=== PATIENT | male | born 1945 | race Caucasian/White ===

== ENCOUNTER 2019-09-10 00:21 | Day surgery (SDC) | payer OTHER, SELFPAY ==
[2019-09-07 14:12] VITALS: BMI 31.6
[2019-09-10] VITALS (10 sets, daily range): BP systolic 123–164; BP diastolic 60–86; PULSE 64–88; RESP 14–18; TEMP 36.2–36.6; O2SAT 93–99; BMI 31.1
--- NOTE | 2019-09-10 07:18 | WPDHPUPDATE1 ---
History and Physical Update Update Date/Time: 09/10/19 07:18 History and Physical has been reviewed, including an updated exam of the patient. There are NO changes in the patient's condition. Risks, benefits, and alternatives have been discussed and questions answered. Patient agrees to proceed with procedure.
--- NOTE | 2019-09-10 11:11 | ECG_ITS ---
Measurements Intervals [place] Rate: 82 P: 46 WV: 152 QRS: -10 QRSD: 139 T: -6 QT: 384 QTc: 449 Interpretive Statements SINUS RHYTHM RIGHT BUNDLE BRANCH BLOCK BASELINE ARTIFACT- II, III, AVF ABNORMAL ECG Electronically Signed On 09-10-2019 11:43:04 CDT by Eran Zaragoza D.O.
--- NOTE | 2019-09-10 11:15 | WPDANESEPPF ---
Anes - Initial Pre Proc Eval Procedure: Operation Date: 09/10/19 13:00 Proposed Procedures p Trans Urethral Resection Bladder Tumor with Mitomycin C Instillation - Uziel Lopez MD Date/Time: 09/10/19 11:15 Surgeon: Uziel Lopez MD Pre Op Diagnosis: bladder tumor, bladder CA Patient Data Age: 74 Gender: M Height: 5 ft 10 in Weight: 100 kg Allergies Allergy/AdvReac Type Severity Reaction Status Date / Time No Known Allergies Allergy Unverified 09/07/19 13:45 Home Medications Medication Instructions Recorded Confirmed Type atorvastatin 20 mg tablet 20 mg PO QPM #90 tablet 04/21/19 09/07/19 Rx lisinopril 20 mg tablet 20 mg PO DAILY #90 tablet 06/17/19 09/07/19 Rx docusate sodium [Colace] 100 mg PO BID 09/07/19 09/07/19 History finasteride 5 mg PO DAILY 09/07/19 09/07/19 History tamsulosin 0.4 mg PO BID 09/07/19 09/07/19 History Patient hx anesthesia problems: none Family hx anesthesia problems: none [facility] Past Medical History Medical History (Updated 09/10/19 @ 11:17 by Yoshi Mir MD) HTN (hypertension) Hyperlipidemia CRISTY (obstructive sleep apnea) Family History Family History Mother Cerebrovascular accident Father Family history of primary malignant neoplasm of liver Family history of liver disease Other Family history of hypercholesterolemia Hypertension Social History Social History Smoking status: Former smoker Smoking end date: 05/27/85 Alcohol intake: never Anes - Eval Final PreProcedure Day of Procedure 09/10/19 11:15 Patient weight: obese Heart: regular rate and rhythm Lungs: clear to auscultation Airway: Mallampati scale class III and other (upper plate) Last oral intake: >/= 8 hours ASA classification: III Emergent: no Anesthetic plan: proceed Anesthesia type and monitoring: general LMA and standard monitoring Informed Consent: The patient's anesthetic plan and its attendant risks and benefits were discussed with the patient/family/POA. Questions were solicited and answers provided to the satisfaction of the patient/family/POA.
[2019-09-10 11:49] LABS: Hematocrit 49.9 % (42.0-52.0); Hemoglobin 16.1 g/dL (14.0-18.0)
[2019-09-10 11:59] LABS: Prothrombin Time 12.4 Seconds (11.1-14.7)
[2019-09-10 12:00] LABS: Partial Thromboplastin Time 21.4 SECONDS (22.3-36.8)
[2019-09-10] MEDS: LACTATED RINGERS 1,000 ML 30 ML IV CONT ×2 (12:05→14:32)
[2019-09-10] MEDS: ceFAZolin 2 GM/D5W 50 ML 2 GM/50 ML BAG IVPB (12:40)
[2019-09-10] MEDS: LIDOCAINE HCL 2% GEL UROJET 10 ML PKG MUCOUS MEM (12:47)
--- NOTE | 2019-09-10 13:32 | P.OP_ITS ---
Procedure Note - Detailed Date of procedure: 09/10/19 Pre-op diagnosis: bladder tumor, bladder CA Post-op diagnosis: same Procedure performed: TURBT (large, 5-6cm) Description of procedure: The patient was brought to the operative suite where he is prepped and draped in a routine sterile fashion while in the dorsal lithotomy position. This is done after the uneventful administration of systemic sedation. 2% Xylocaine jelly is introduced intraurethrally and allowed to stand for an appropriate period of time. A 24F resectoscope sheath was placed in the bladder and the bladder is circumferentially inspected carefully. He has a an area of recurrent urothelial ca. involving the ledt posterior- lateral bladder, extending into the dome and to the bladder neck. This area is resected in its entirety with an attempt made to include detrusor muscle for pathological evaluation of invasion. The base and periphery of this resected side is cauterized with a loop electrode. The bladder is emptied and the resectoscope was removed. The patient is taken to the recovery room having tolerated this procedure well. Anesthesia: MAC Surgeon: Uziel Lopez MD Estimated blood loss (mL): 10 Drains: Yes (18F Santiago) Packing: No Pathology: yes Complications: No immediate complications Condition: stable Disposition: PACU
--- NOTE | 2019-09-10 13:36 | P.OP_ITS ---
Procedure Note - Detailed Date of procedure: 09/10/19 Pre-op diagnosis: bladder tumor, bladder CA Post-op diagnosis: same Procedure performed: Mitomycin bladder instillation Description of procedure: With the patient in the supine position, a 16F Santiago catheter is placed using sterile technique. Using a protective facemask, gown and double layer of gloves Mitomycin 40mg in 100cc saline is administered through the catheter/into the bladder. The catheter is then plugged. Patient was instructed to lie supine x20min, then to roll both the left and right x20 min. each. Total dwell time will be 60 min., after which the bladder will be dr samir and catheter removed. Anesthesia: none Surgeon: Uziel Lopez MD Estimated blood loss (mL): 0 Drains: Yes (18F Santiago) Packing: No Pathology: none sent Complications: No immediate complications Condition: stable Disposition: PACU
== END 2019-09-10 16:14 | disposition home or self-care (01) ==
PROVIDERS: Anesthesiology; PCP Family Medicine; Visit Provider Urology
PROC: 0TBB8ZZ Excision of Bladder, Via Natural or Artificial Opening Endoscopic (ICD-10-PCS; CPT 52240; principal; 2019-09-10 13:00)
DX: C67.8 Malignant neoplasm of overlapping sites of bladder (principal); I10 Essential (primary) hypertension; E78.5 Hyperlipidemia, unspecified; G47.33 Obstructive sleep apnea (adult) (pediatric); I45.10 Unspecified right bundle-branch block; Z87.891 Personal history of nicotine dependence; E66.9 Obesity, unspecified; Z68.31 Body mass index [BMI] 31.0-31.9, adult
CPT/HCPCS: 52240; 51720; 36415; 85014; 85018; 85610; 85730; 88305; 88307; 93005; A9270; J0330; J0690; J1100; J2250; J2405; J3010; J7120; J9280

== ENCOUNTER 2019-11-12 07:04 | Outpatient (RCR) | payer OTHER, SELFPAY ==
[2019-10-08 07:20] VITALS: BP 123/72; PULSE 91; RESP 16; TEMP 37.1; O2SAT 98
[2019-10-08 07:50] VITALS: BP 120/70; PULSE 90; RESP 18
[2019-10-08] MEDS: SODIUM CHLORIDE 0.9% IV 23.7 ML, GEMCITABINE HCL 1,000 MG BLADDER ×2 (08:00)
[2019-10-08 08:20] VITALS: BP 126/74; PULSE 92; RESP 18
--- NOTE | 2019-10-08 08:30 | PM.PROC ---
Procedure Note - Detailed Date of procedure: 10/08/19 Pre-op diagnosis: Bladder Ca Post-op diagnosis: same Procedure performed: Intravesicle gemcitabine instillation. Description of procedure: With the patient in the supine position, a 16F Santiago catheter is placed using sterile technique. Using a protective facemask, gown and double layer of gloves Gemcitabine 2gm in 100cc saline is administered through the catheter/into the bladder. The catheter is then plugged. Patient was instructed to lie supine x20min, then to roll both the left and right x20 min. each. Total dwell time will be 60 min., after which the bladder will be drained and catheter removed. Surgeon: Uziel Lopez MD Estimated blood loss (mL): 0 Drains: No Packing: No Pathology: yes Complications: No immediate complications Condition: stable Disposition: PACU
[2019-10-08 08:50] VITALS: BP 156/87; PULSE 92; RESP 18
--- NOTE | 2019-10-08 09:30 | SUR.PHASEII ---
0905 PADRON CATHETER DRAINED & REMOVED.
[2019-10-15 11:50] VITALS: BP 138/81; PULSE 81
[2019-10-15 12:20] VITALS: BP 154/84; PULSE 83; RESP 14
--- NOTE | 2019-10-15 12:21 | SUR.PHASEII ---
1210: Dr. Jensen's office notfied that patient is here and ready for bladder instillation.
[2019-10-15 12:55] VITALS: BP 150/80; PULSE 88; RESP 14
[2019-10-15] MEDS: SODIUM CHLORIDE 0.9% IV 23.7 ML, GEMCITABINE HCL 1,000 MG BLADDER ×2 (12:55→13:43)
[2019-10-15 13:30] VITALS: BP 148/80; PULSE 78; RESP 14
--- NOTE | 2019-10-15 14:38 | PM.PROC ---
Procedure Note - Detailed Date of procedure: 10/15/19 Pre-op diagnosis: Bladder Ca Surgeon: Berenice Ramos, JOSE LUIS Patient was verified by name and date of . Then a 16fr straight catheter was placed without difficulty,200ml clear yellow uirne noted on return. He was prepped with Betadine at the urethral meatus prior to catheter insertion. He then underwent the instillation of Gemcitabine HCL 1,000mg/26.3 in NS 0.9% IV 100ml, beginning at 12:50. Patient tolerated the instillation well.
--- NOTE | 2019-10-15 15:47 | SUR.PHASEII ---
1255 rose employee service officer here and placed betancourt and instilled chemotherapy with pt turning q20min.
--- NOTE | 2019-10-15 15:53 | SUR.PHASEII ---
1400 pt to back and drained urine and removed betancourt without difficulty.
--- NOTE | 2019-10-22 06:55 | WPDHPUPDATE1 ---
History and Physical Update Update Date/Time: 10/22/19 06:55 History and Physical has been reviewed, including an updated exam of the patient. There are NO changes in the patient's condition. Risks, benefits, and alternatives have been discussed and questions answered. Patient agrees to proceed with procedure.
[2019-10-22 07:30] VITALS: BP 117/72; PULSE 90; RESP 18; TEMP 36.4; O2SAT 100
[2019-10-22 08:00] VITALS: BP 117/70; PULSE 83; RESP 18; O2SAT 99
[2019-10-22] MEDS: SODIUM CHLORIDE 0.9% IV 23.7 ML, GEMCITABINE HCL 1,000 MG BLADDER ×2 (08:18→08:20)
--- NOTE | 2019-10-22 08:25 | PM.PROC ---
Procedure Note - Detailed Date of procedure: 10/22/19 Pre-op diagnosis: Bladder Ca Post-op diagnosis: same Procedure performed: Simple catheterization and instillation of bladder chemotherapy. Description of procedure: With the patient in the supine position, a 16F Santiago catheter is placed using sterile technique. Using a protective facemask, gown and double layer of gloves Gemcitabine 2gm in 100cc saline is administered through the catheter/into the bladder. The catheter is then plugged. Patient was instructed to lie supine x20min, then to roll both the left and right x20 min. each. Total dwell time will be 60 min., after which the bladder will be drained and catheter removed. Anesthesia: none Surgeon: Uziel Lopez MD Estimated blood loss (mL): 0 Drains: No Packing: No Pathology: none sent Complications: No immediate complications Condition: stable Disposition: PACU
[2019-10-22 08:30] VITALS: BP 119/68; PULSE 93; RESP 18; O2SAT 96
[2019-10-22 09:00] VITALS: BP 119/70; PULSE 92; RESP 18; O2SAT 96
--- NOTE | 2019-10-22 10:06 | SUR.PHASEII ---
0920 PADRON CATHETER DRAINED & THEN DISCONTINUED.
--- NOTE | 2019-10-27 07:33 | PM.HPGS ---
History of Present Illness History of Present Illness Consent: Risks, benefits, and alternatives have been discussed and questions answered. Patient agrees to proceed with procedure. Chief complaint: Bladder Ca Narrative: Mark Domingo is a 74 year old male with recurrent bladder cancer involved in course of intrasicle Gemcitobine. Review of Systems Cardiovascular: Cardiovascular: Denies chest pain, Denies lightheadedness, Denies palpitations and Denies dyspnea Respiratory: Respiratory: Denies dyspnea Gastrointestinal: Gastrointestinal: Denies diarrhea, Denies nausea and Denies vomiting Genitourinary: Genitourinary: Denies hematuria and Denies dysuria Endocrine: Endocrine: Denies palpitations [facility] Past Medical History Medical History Bladder cancer CLL (chronic lymphocytic leukemia) HTN (hypertension) Hyperlipidemia CRISTY (obstructive sleep apnea) Family History Family History Mother Cerebrovascular accident Father Family history of primary malignant neoplasm of liver Family history of liver disease Other Family history of hypercholesterolemia Hypertension Social History Social History Smoking packs per day: 1 Smoking cigarettes per day: 20.0 Years smoked: 25 Smoking pack-years: 25.00 Smoking status: Former smoker Tobacco type: cigarettes Second hand tobacco smoke exposure: No Smoking end date: 05/27/85 Alcohol intake: never Substance use: never Substance use type: does not use Gender identity (if verbalized by the patient): Male Meds Home Medications and Allergies Home Medications Medication Instructions Recorded Confirmed Type docusate sodium [Colace] 100 mg PO BID 09/07/19 09/10/19 History finasteride 5 mg PO DAILY 09/07/19 09/10/19 History tamsulosin 0.4 mg PO BID 09/07/19 09/10/19 History cephalexin 500 mg PO Q8H #9 cap 09/10/19 Rx lisinopril 20 mg tablet 20 mg PO DAILY #90 tablet 09/14/19 Rx methylprednisolone 4 mg tablets in See Rx Instructions PO PER PKG DIR 10/02/19 10/02/19 Rx a dose pack #21 each atorvastatin 20 mg tablet 20 mg PO QPM #90 tablet 10/15/19 Rx Allergies Allergy/AdvReac Type Severity Reaction Status Date / Time cephalexin [From Keflex] Allergy Intermediate rash Verified 10/02/19 15:26 Exam Const: General: no acute distress Resp: Effort & Inspection: normal respiratory effort GI: Inspection: non-distended GI Palp: No abdominal tenderness and No Guarding due to palpation present (GI) Auscultation: normal bowel sounds Assessment and Plan Assessment and plan (1) Bladder cancer: Code(s): C67.9 - Malignant neoplasm of bladder, unspecified Status: Acute Assessment and Plan: Intravesicle Gemcitobene instillation
--- NOTE | 2019-10-29 07:12 | WPDHPUPDATE1 ---
History and Physical Update Update Date/Time: 10/29/19 07:12 History and Physical has been reviewed, including an updated exam of the patient. There are NO changes in the patient's condition. Risks, benefits, and alternatives have been discussed and questions answered. Patient agrees to proceed with procedure.
[2019-10-29 07:30] VITALS: BP 133/71; PULSE 93; RESP 18; O2SAT 96
--- NOTE | 2019-10-29 07:31 | SUR.PHASEII ---
0725 - dr. tilley in room with patient.
[2019-10-29] MEDS: SODIUM CHLORIDE 0.9% IV 23.7 ML, GEMCITABINE HCL 1,000 MG BLADDER ×2 (07:37)
--- NOTE | 2019-10-29 07:38 | PM.PROC ---
Procedure Note - Detailed Date of procedure: 10/29/19 Pre-op diagnosis: Bladder Ca Post-op diagnosis: same Procedure performed: Intravesical instillation of Gemcitabine Description of procedure: With the patient in the supine position, a 16F Santiago catheter is placed using sterile technique. Using a protective facemask, gown and double layer of gloves Gemcitabine 2gm in 100cc saline is administered through the catheter/into the bladder. The catheter is then plugged. Patient was instructed to lie supine x20min, then to roll both the left and right x20 min. each. Total dwell time will be 60 min., after which the bladder will be drained and catheter removed. Anesthesia: none Surgeon: Uziel Lopez MD Estimated blood loss (mL): 0 Drains: Yes (16F Santiago) Packing: No Pathology: yes Complications: No immediate complications Condition: stable Disposition: PACU
[2019-10-29 08:45] VITALS: BP 120/70; PULSE 90; RESP 18; O2SAT 96
--- NOTE | 2019-10-29 08:45 | SUR.PHASEII ---
0840 - betancourt catheter drained and removed. pt debbie well. skin care provided.
--- NOTE | 2019-11-05 06:53 | WPDHPUPDATE1 ---
History and Physical Update Update Date/Time: 11/05/19 06:53 History and Physical has been reviewed, including an updated exam of the patient. There are NO changes in the patient's condition. Risks, benefits, and alternatives have been discussed and questions answered. Patient agrees to proceed with procedure.
--- NOTE | 2019-11-05 06:54 | WPDHPUPDATE1 ---
History and Physical Update Update Date/Time: 11/05/19 06:54 History and Physical has been reviewed, including an updated exam of the patient. There are NO changes in the patient's condition. Risks, benefits, and alternatives have been discussed and questions answered. Patient agrees to proceed with procedure.
[2019-11-05 07:09] VITALS: BP 134/74; PULSE 88; RESP 18; TEMP 36; O2SAT 99
--- NOTE | 2019-11-05 07:30 | PM.PROC ---
Procedure Note - Detailed Date of procedure: 11/05/19 Pre-op diagnosis: Bladder Ca Post-op diagnosis: same Procedure performed: Gemcitabine bladder instillation Description of procedure: With the patient in the supine position, a 16F Santiago catheter is placed using sterile technique. Using a protective facemask, gown and double layer of gloves Gemcitabine 2gm in 100cc saline is administered through the catheter/into the bladder. The catheter is then plugged. Patient was instructed to lie supine x20min, then to roll both the left and right x20 min. each. Total dwell time will be 60 min., after which the bladder will be drained and catheter removed. Surgeon: Uziel Lopez MD Estimated blood loss (mL): 0 Drains: No Packing: No Pathology: none sent Complications: No immediate complications Condition: stable Disposition: PACU
[2019-11-05 07:40] VITALS: BP 122/66; PULSE 84; RESP 18; O2SAT 97
[2019-11-05] MEDS: SODIUM CHLORIDE 0.9% IV 23.7 ML, GEMCITABINE HCL 1,000 MG BLADDER ×2 (07:40→07:41)
[2019-11-05 08:10] VITALS: BP 145/71; PULSE 92; RESP 18; O2SAT 98
[2019-11-05 08:40] VITALS: BP 130/75; PULSE 88; O2SAT 98
--- NOTE | 2019-11-05 09:32 | SUR.PHASEII ---
0937 pt tolerated procedure and is ok to be discharged per dr tilley
[2019-11-12 07:20] VITALS: BP 135/68; PULSE 91; RESP 17; O2SAT 98
--- NOTE | 2019-11-12 07:32 | PM.PROC ---
Procedure Note - Detailed Date of procedure: 11/12/19 Pre-op diagnosis: Bladder Ca Post-op diagnosis: same Procedure performed: Gemcitabine instillation Description of procedure: With the patient in the supine position, a 16F Santiago catheter is placed using sterile technique. Using a protective facemask, gown and double layer of gloves Gemcitabine 2gm in 100cc saline is administered through the catheter/into the bladder. The catheter is then plugged. Patient was instructed to lie supine x20min, then to roll both the left and right x20 min. each. Total dwell time will be 60 min., after which the bladder will be drained and catheter removed. Anesthesia: none Surgeon: Uziel Lopez MD Estimated blood loss (mL): 0 Drains: No Packing: No Pathology: none sent Complications: No immediate complications Condition: stable Disposition: PACU
[2019-11-12] MEDS: SODIUM CHLORIDE 0.9% IV 23.7 ML, GEMCITABINE HCL 1,000 MG BLADDER ×2 (07:50→07:54)
--- NOTE | 2019-11-12 08:12 | SUR.PHASEII ---
0750 Pharmacy delivered medication, Dr Lopez placed betancourt and administered medication. No complications and vitals are stable
--- NOTE | 2019-11-12 08:17 | SUR.PHASEII ---
1344 Pt turned from backside to right side
[2019-11-12 08:30] VITALS: BP 134/65; PULSE 90; O2SAT 98
--- NOTE | 2019-11-12 08:31 | SUR.PHASEII ---
0830 Pt turned from left side to right side
--- NOTE | 2019-11-12 09:06 | SUR.PHASEII ---
0955 Drained pt's betancourt
[2019-11-12 09:15] VITALS: BP 132/71; PULSE 98; O2SAT 98
== END 2020-01-06 23:59 | disposition home or self-care (01) ==
LOC: ANHSURGERY 07:04
PROVIDERS: Urology; PCP Family Medicine; Visit Provider Urology
PROC: 3E1K78Z Irrigation of Genitourinary Tract using Irrigating Substance, Via Natural or Artificial Opening (ICD-10-PCS; CPT 51700; principal; 2019-10-08 07:30)
DX: C67.9 Malignant neoplasm of bladder, unspecified (principal)
CPT/HCPCS: 51720; J9201

== ENCOUNTER → 2020-07-18 00:11 | Outpatient (CLI) | payer OTHER, SELFPAY ==
[2020-07-18 19:33] LABS: SARS-CoV-2 RNA PCR Negative
== END ==
PROVIDERS: PCP Family Medicine; Visit Provider Urology
DX: Z01.812 Encounter for preprocedural laboratory examination (principal); Z20.822 Contact with and (suspected) exposure to COVID-19
CPT/HCPCS: C9803; U0003; U0005

== ENCOUNTER 2020-07-21 01:51 | Day surgery (SDC) | payer OTHER, SELFPAY ==
[2020-07-14 13:35] VITALS: BMI 31.6
[2020-07-21] VITALS (10 sets, daily range): BP systolic 115–156; BP diastolic 62–87; PULSE 73–877; RESP 13–20; TEMP 36.5–36.7; O2SAT 95–100
--- NOTE | 2020-07-21 06:55 | WPDHPUPDATE1 ---
History and Physical Update Update Date/Time: 07/21/20 06:55 History and Physical has been reviewed, including an updated exam of the patient. There are NO changes in the patient's condition. Risks, benefits, and alternatives have been discussed and questions answered. Patient agrees to proceed with procedure.
[2020-07-21] MEDS: LACTATED RINGERS 1,000 ML 30 ML IV CONT (14:12)
--- NOTE | 2020-07-21 14:23 | WPDANESEPPF ---
Anes - Initial Pre Proc Eval Procedure: Operation Date: 07/21/20 15:15 Proposed Procedures p Trans Urethral Resection Bladder Tumor With Gemcitabine Instillation - Uziel Lopez MD Date/Time: 07/21/20 14:23 Surgeon: Uziel Lopez MD Pre Op Diagnosis: Bladder CA Patient Data Age: 74 Gender: M Height: 5 ft 10 in Weight: 93.4 kg Last Vital Signs Temp 97.7 F 07/21/20 13:34 Pulse 77 07/21/20 13:34 Resp 16 07/21/20 13:34 BP 142/78 H 07/21/20 13:34 Pulse Ox 100 07/21/20 13:34 Allergies Allergy/AdvReac Type Severity Reaction Status Date / Time cephalexin [From Keflex] Allergy Intermediate rash Verified 07/21/20 13:47 Home Medications Medication Instructions Recorded Confirmed Type docusate sodium [Colace] 100 mg PO BID 09/07/19 07/21/20 History tamsulosin 0.4 mg PO BID 09/07/19 07/21/20 History atorvastatin 20 mg tablet 20 mg PO QPM #90 tablet 04/04/20 07/21/20 Rx lisinopril 20 mg tablet 20 mg PO DAILY #90 tablet 04/04/20 07/21/20 Rx finasteride 5 mg tablet 5 mg PO DAILY #90 tablet 04/26/20 07/21/20 Rx Patient hx anesthesia problems: none Family hx anesthesia problems: none PMFSH Past Medical History Medical History (Updated 04/10/20 @ 14:18 by Nitza Alcocer MD) Bladder cancer CLL (chronic lymphocytic leukemia) HTN (hypertension) Hyperlipidemia Family History Family History Mother Cerebrovascular accident Father Family history of primary malignant neoplasm of liver Family history of liver disease Other Family history of hypercholesterolemia Hypertension Social History Social History (Updated 04/04/20 @ 10:24 by Marianne Doe) Social History: Smoking packs per day: 1 Smoking cigarettes per day: 20.0 Years smoked: 24 Smoking pack-years: 24.00 Smoking status: Former smoker Tobacco type: cigarettes Second hand tobacco smoke exposure: No Smoking end date: 05/27/84 Alcohol intake: never Substance use: never Substance use type: does not use Living arrangements: with family Gender identity (if verbalized by the patient): Male Spiritual care concerns: No Anes - Eval Final PreProcedure Day of Procedure 07/21/20 14:23 Patient weight: obese Heart: regular rate and rhythm Lungs: clear to auscultation Airway: Mallampati scale class III Neurological: alert and oriented Last oral intake: >/= 8 hours Emergent: no Anesthetic plan: proceed Anesthesia type and monitoring: general LMA and standard monitoring Informed Consent: The patient's anesthetic plan and its attendant risks and benefits were discussed with the patient/family/POA. Questions were solicited and answers provided to the satisfaction of the patient/family/POA.
[2020-07-21] MEDS: levoFLOXacin 500 MG/D5W 100 ML 500 MG/100 ML BAG 100 MG IVPB (14:37)
--- NOTE | 2020-07-21 15:30 | PM.PROC ---
Procedure Note - Detailed Date of procedure: 07/21/20 Pre-op diagnosis: Bladder CA Post-op diagnosis: same Procedure performed: TURBT (medium, 3cm) Description of procedure: Patient is brought to the operative suite was prepped and draped in routine sterile fashion while in dorsal lithotomy position after the uneventful induction of a general LMA anesthetic. A 24 F resectoscope was placed in his bladder. Prostatic urethra is uninvolved by apparent neoplasm. Bladder was carefully inspected and found to have a small papillary neoplasm arising in the dome and extending somewhat of the left anterior lateral bladder wall. This was resected in its entirety grossly within attempt made to include detrusor muscle for pathological evaluation of invasion. The patient periphery were cauterized both with a loop and a rollerball electrode. The chips were evacuated and the resectoscope was removed. An 18 F urethral catheter was placed to drainage. Efflux was clear at the termination of this procedure. Anesthesia: GLMA Surgeon: Uziel Lopez MD Estimated blood loss (mL): 0 Drains: Yes (18F Santiago catheter) Packing: No Pathology: yes Condition: stable Disposition: PACU
--- NOTE | 2020-07-21 15:32 | PM.PROC ---
Procedure Note - Detailed Date of procedure: 07/21/20 Pre-op diagnosis: Bladder CA Post-op diagnosis: same Procedure performed: Gemcitabine instillation Description of procedure: With the patient in the supine position, a 16F Santiago catheter is placed using sterile technique. Using a protective facemask, gown and double layer of gloves Gemcitabine 2gm in 100cc saline is administered through the catheter/into the bladder. The catheter is then plugged. Patient was instructed to lie supine x20min, then to roll both the left and right x20 min. each. Total dwell time will be 60 min., after which the bladder will be drained and catheter removed. Anesthesia: local Surgeon: Uziel Lopez MD Estimated blood loss (mL): 0 Drains: No Packing: No Pathology: none sent Complications: No immediate complications Condition: stable Disposition: PACU
[2020-07-21] MEDS: SODIUM CHLORIDE 0.9% IV 23.7 ML, GEMCITABINE HCL 1,000 MG BLADDER ×2 (15:38→15:39)
--- NOTE | 2020-07-21 16:03 | SUR.PHASEI ---
At 1600 patient turned to left side.
--- NOTE | 2020-07-21 16:21 | SUR.PHASEI ---
at 1620 patient turned to his right side.
== END 2020-07-21 17:48 | disposition home or self-care (01) ==
PROVIDERS: PCP Family Medicine; Visit Provider Urology
PROC: 0TBB8ZZ Excision of Bladder, Via Natural or Artificial Opening Endoscopic (ICD-10-PCS; CPT 52235; principal; 2020-07-21 15:15)
DX: C67.8 Malignant neoplasm of overlapping sites of bladder (principal); I10 Essential (primary) hypertension; C91.10 Chronic lymphocytic leukemia of B-cell type not having achieved remission; E78.5 Hyperlipidemia, unspecified; Z87.891 Personal history of nicotine dependence; E66.9 Obesity, unspecified; Z68.29 Body mass index [BMI] 29.0-29.9, adult
CPT/HCPCS: 52235; 51720; 88305; 88342; A9270; C9803; J1100; J1956; J2405; J2704; J3010; J7120; J9201; U0003; U0005

== ENCOUNTER 2020-08-08 11:33 | Outpatient (CLI) | payer OTHER, MEDICARE, SELFPAY | END 2020-08-08 11:34 | disposition home or self-care (01) | LOC: ANHCOVIDVC 11:33 | PROVIDERS: PCP Family Medicine | DX: Z23 Encounter for immunization (principal) | CPT/HCPCS: 0001A; 91300 ==

== ENCOUNTER 2020-08-29 11:30 | Outpatient (CLI) | payer OTHER, MEDICARE, SELFPAY | END 2020-08-29 11:31 | disposition home or self-care (01) | LOC: ANHCOVIDVC 11:30 | PROVIDERS: PCP Family Medicine | DX: Z23 Encounter for immunization (principal) | CPT/HCPCS: 0002A; 91300 ==

== ENCOUNTER 2020-11-09 11:21 | Outpatient (CLI) | payer OTHER, SELFPAY ==
--- NOTE | 2020-11-09 11:30 | ECG_ITS ---
Measurements Intervals [place] Rate: 75 P: 41 VA: 163 QRS: -16 QRSD: 136 T: -2 QT: 404 QTc: 451 Interpretive Statements SINUS RHYTHM RIGHT BUNDLE BRANCH BLOCK BASELINE ARTIFACT- I, III, AVR, AVL, AVF, V1-V6 ABNORMAL ECG Electronically Signed On 11-09-2020 11:40:46 CDT by Eran Zaragoza D.O.
[2020-11-09 12:39] LABS: Alanine Aminotransferase 19 U/L (4-50); Albumin Level 4.3 g/dL (3.5-5.1); Alkaline Phosphatase 83 U/L (38-126); Anion Gap 8 mmol/L (8-16); Aspartate Amino Transferase 25 U/L (17-59); Bilirubin,Total 0.4 mg/dL (0.2-1.3); Blood Urea Nitrogen 17 mg/dL (9-20); Calcium 9.6 mg/dL (8.4-10.2); Carbon Dioxide 28 mmol/L (22-30); Chloride 103 mmol/L (98-107); Estimated Glomerular Filt Rate > 60; Glucose 114 mg/dL (75-110); Potassium 4.3 mmol/L (3.4-5.0); Sodium 139 mmol/L (137-145)
== END 2020-11-09 11:22 | disposition home or self-care (01) ==
LOC: ANHSURGERY 11:26
PROVIDERS: PCP Family Medicine; Visit Provider Urology
DX: Z01.812 Encounter for preprocedural laboratory examination (principal); I45.10 Unspecified right bundle-branch block; I10 Essential (primary) hypertension
CPT/HCPCS: 36415; 80053; 93005

== ENCOUNTER → 2020-11-14 00:34 | Outpatient (CLI) | payer OTHER, SELFPAY ==
[2020-11-16 13:31] LABS: SARS-CoV-2 RNA PCR Negative
== END ==
PROVIDERS: PCP Family Medicine; Visit Provider Urology
DX: Z01.812 Encounter for preprocedural laboratory examination (principal); Z20.822 Contact with and (suspected) exposure to COVID-19
CPT/HCPCS: C9803; U0003; U0005

== ENCOUNTER 2020-11-17 01:13 | Day surgery (SDC) | payer OTHER, SELFPAY ==
[2020-11-03 14:44] VITALS: BMI 31.6
--- NOTE | 2020-11-14 16:09 | P.HP_ITS ---
History of Present Illness History of Present Illness Consent: Risks, benefits, and alternatives have been discussed and questions answered. Patient agrees to proceed with procedure. 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 Recent surveillance cystoscopy showed an area of recurrence in the anterior bladder wall, around the 11 o'clock position just inside the bladder neck. Prostatic urethra seemed uninvolved on most recent cystoscopy. Review of Systems Cardiovascular: Cardiovascular: Denies chest pain, Denies lightheadedness, Denies palpitations and Denies dyspnea Respiratory: Respiratory: Denies dyspnea Gastrointestinal: Gastrointestinal: Denies diarrhea, Denies nausea and Denies vomiting Genitourinary: Genitourinary: Denies hematuria and Denies dysuria Endocrine: Endocrine: Denies palpitations PMFSH Past Medical History Medical History Asbestos exposure Bladder cancer CLL (chronic lymphocytic leukemia) HTN (hypertension) Hyperlipidemia Family History Family History Mother Cerebrovascular accident Father Family history of primary malignant neoplasm of liver Family history of liver disease Other Family history of hypercholesterolemia Hypertension Social History Social History (Updated 08/04/20 @ 08:57 by Marianne Doe) Social History: Smoking packs per day: 1 Smoking cigarettes per day: 20.0 Years smoked: 24 Smoking pack-years: 24.00 Smoking status: Former smoker Tobacco type: cigarettes Second hand tobacco smoke exposure: No Smoking end date: 05/27/84 Alcohol intake: never Substance use: never Substance use type: does not use Gender identity (if verbalized by the patient): Male Spiritual care concerns: No Meds Home Medications and Allergies Home Medications Medication Instructions Recorded Confirmed Type docusate sodium [Colace] 100 mg PO BID 09/07/19 11/03/20 History tamsulosin 0.4 mg PO BID 09/07/19 11/03/20 History atorvastatin 20 mg tablet 20 mg PO QPM #90 tablet 07/26/20 11/03/20 Rx finasteride 5 mg tablet 5 mg PO DAILY #90 tablet 10/24/20 11/03/20 Rx lisinopril 20 mg tablet 20 mg PO DAILY #90 tablet 10/24/20 11/03/20 Rx Allergies Allergy/AdvReac Type Severity Reaction Status Date / Time cephalexin [From Keflex] Allergy Intermediate rash Verified 11/03/20 14:34 Exam Const: General: no acute distress Resp: Effort & Inspection: normal respiratory effort GI: Inspection: non-distended GI Palp: No abdominal tenderness and No Gua rding due to palpation present (GI) Auscultation: normal bowel sounds Assessment and Plan Assessment and plan (1) 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
--- NOTE | 2020-11-16 13:08 | WPDANESEPPF ---
Anes - Initial Pre Proc Eval Procedure: Operation Date: 11/17/20 12:15 Proposed Procedures p Trans Urethral Resection Bladder Tumor, with Gemzar Instillation - Uziel Lopez MD Date/Time: 11/16/20 13:08 Surgeon: Uziel Lopez MD Pre Op Diagnosis: Bladder Cancer Patient Data Age: 75 Gender: M Height: 1.78 m Weight: 99.8 kg Allergies Allergy/AdvReac Type Severity Reaction Status Date / Time cephalexin [From Keflex] Allergy Intermediate rash Verified 11/03/20 14:34 Home Medications Medication Instructions Recorded Confirmed Type docusate sodium [Colace] 100 mg PO BID 09/07/19 11/03/20 History tamsulosin 0.4 mg PO BID 09/07/19 11/03/20 History atorvastatin 20 mg tablet 20 mg PO QPM #90 tablet 07/26/20 11/03/20 Rx finasteride 5 mg tablet 5 mg PO DAILY #90 tablet 10/24/20 11/03/20 Rx lisinopril 20 mg tablet 20 mg PO DAILY #90 tablet 10/24/20 11/03/20 Rx Patient hx anesthesia problems: none Family hx anesthesia problems: none PMFSH Past Medical History Medical History (Updated 11/16/20 @ 13:15 by Gilmar Gay MD) Asbestos exposure Bladder cancer CLL (chronic lymphocytic leukemia) HTN (hypertension) Hyperlipidemia Obesity Family History Family History Mother Cerebrovascular accident Father Family history of primary malignant neoplasm of liver Family history of liver disease Other Family history of hypercholesterolemia Hypertension Social History Social History (Updated 08/04/20 @ 08:57 by Marianne Doe) Social History: Smoking packs per day: 1 Smoking cigarettes per day: 20.0 Years smoked: 24 Smoking pack-years: 24.00 Smoking status: Former smoker Tobacco type: cigarettes Second hand tobacco smoke exposure: No Smoking end date: 05/27/84 Alcohol intake: never Substance use: never Substance use type: does not use Living arrangements: with family Gender identity (if verbalized by the patient): Male Spiritual care concerns: No Anes - Eval Final PreProcedure Day of Procedure 11/16/20 13:08 Patient weight: obese Heart: regular rate and rhythm Lungs: clear to auscultation and normal air movement Airway: Mallampati scale class II Neurological: alert and oriented Last oral intake: >/= 8 hours ASA classification: III Emergent: no Anesthetic plan: proceed Anesthesia type and monitoring: general LMA Informed Consent: The patient's anesthetic plan and its attendant risks and benefits were discussed with the patient/family/POA. Questions were solicited and answers provided to the satisfaction of the patient/family/POA.
[2020-11-17] VITALS (9 sets, daily range): BP systolic 125–173; BP diastolic 70–88; PULSE 73–92; RESP 16–20; TEMP 36.6; O2SAT 93–100
--- NOTE | 2020-11-17 06:22 | WPDHPUPDATE1 ---
History and Physical Update Update Date/Time: 11/17/20 06:22 History and Physical has been reviewed, including an updated exam of the patient. There are NO changes in the patient's condition. Risks, benefits, and alternatives have been discussed and questions answered. Patient agrees to proceed with procedure.
[2020-11-17] MEDS: LACTATED RINGERS 1,000 ML 30 ML IV CONT ×2 (11:00→14:05)
[2020-11-17] MEDS: ceFAZolin 2 GM/D5W 50 ML 2 GM/50 ML BAG IVPB (11:49)
[2020-11-17] MEDS: LIDOCAINE HCL 2% GEL UROJET 10 ML PKG MUCOUS MEM (12:03)
--- NOTE | 2020-11-17 12:16 | W.PM.PROC2 ---
Procedure Note - Detailed Date of Procedure 11/17/20 Pre-op Diagnosis Bladder Cancer Post-op Diagnosis same Procedure Performed TURBT (medium, 3cm) Surgeon Uziel Lopez MD Supervisor [employer] None Anesthesia general Indications Recurrent bladder cancer Findings Urothelial neoplasm in the anterior bladder wall extending near the dome. Description of Procedure The patient was brought to the operative suite where he is prepped and draped in a routine sterile fashion while in the dorsal lithotomy position. This is done after the uneventful administration of systemic sedation. 2% Xylocaine jelly is introduced intraurethrally and allowed to stand for an appropriate period of time. A 24F resectoscope sheath was placed in the bladder and the bladder is circumferentially inspected carefully. He has an area of recurrent urothelial neoplasm arising in the anterior wall and extending near the dome.. This area is resected in its entirety with an attempt made to include detrusor muscle for pathological evaluation of invasion. The base and periphery of this resected side is cauterized with a loop electrode. The bladder is emptied and the resectoscope was removed. An 18 F urethral catheter was traced to drainage. The patient is taken to the recovery room having tolerated this procedure well. Estimated Blood Loss 0 Drains Yes (18F Santiago catheter) Packing No Pathology yes Complications No immediate complications Condition stable Disposition PACU
--- NOTE | 2020-11-17 12:21 | W.PM.PROC2 ---
Procedure Note - Detailed Date of Procedure 11/17/20 Pre-op Diagnosis Bladder Cancer Post-op Diagnosis same Procedure Performed TURBT (medium) Surgeon Uziel Lopez MD Description of Procedure The patient was brought to the operative suite where he is prepped and draped in a routine sterile fashion while in the dorsal lithotomy position. This is done after the uneventful administration of systemic sedation. 2% Xylocaine jelly is introduced intraurethrally and allowed to stand for an appropriate period of time. A 24F resectoscope sheath was placed in the bladder and the bladder is circumferentially inspected carefully. Is an area of recurrent urothelial neoplasm extending into the anterior bladder wall. This area is resected in its entirety with an attempt made to include detrusor muscle for pathological evaluation of invasion. The base and periphery of this resected side is cauterized with a loop electrode. The bladder is emptied and the resectoscope was removed. The patient is taken to the recovery room having tolerated this procedure well. Estimated Blood Loss 0
--- NOTE | 2020-11-17 12:22 | W.PM.PROC2 ---
Procedure Note - Detailed Date of Procedure 11/17/20 Pre-op Diagnosis Bladder Cancer Post-op Diagnosis same Procedure Performed Gemcitabine installation Surgeon Uziel Lopez MD Retirement Benefits Specialist None Anesthesia none Indications Recurrent bladder tumor Description of Procedure With the patient in the supine position, a 16F Santiago catheter is placed using sterile technique. Using a protective facemask, gown and double layer of gloves Gemcitabine 2gm in 100cc saline is administered through the catheter/into the bladder. The catheter is then plugged. Patient was instructed to lie supine x20min, then to roll both the left and right x20 min. each. Total dwell time will be 60 min., after which the bladder will be drained and catheter removed. Estimated Blood Loss 0 Drains Yes (18F) Packing No Pathology yes Complications No immediate complications Condition stable Disposition PACU
[2020-11-17] MEDS: SODIUM CHLORIDE 0.9% IV 23.7 ML, GEMCITABINE HCL 1,000 MG BLADDER ×2 (12:27→12:28)
[2020-11-17] MEDS: fentaNYL CITRATE INJ (*CRX) 100 MCG/2 ML VIAL 25 MCG IV PUSH ×4 (12:42→13:17)
== END 2020-11-17 15:10 | disposition home or self-care (01) ==
PROVIDERS: PCP Family Medicine; Visit Provider Urology
PROC: 0TBB8ZZ Excision of Bladder, Via Natural or Artificial Opening Endoscopic (ICD-10-PCS; CPT 52235; principal; 2020-11-17 12:15)
DX: C67.3 Malignant neoplasm of anterior wall of bladder (principal); I10 Essential (primary) hypertension; E78.5 Hyperlipidemia, unspecified; C91.10 Chronic lymphocytic leukemia of B-cell type not having achieved remission; E66.9 Obesity, unspecified; Z68.32 Body mass index [BMI] 32.0-32.9, adult; Z87.891 Personal history of nicotine dependence
CPT/HCPCS: 52235; 51720; 36415; 80053; 88305; 93005; A9270; C9803; J0690; J1100; J2250; J2405; J2704; J3010; J7120; J9201; U0003; U0005

== ENCOUNTER 2021-04-13 00:44 | Day surgery (SDC) | payer OTHER, SELFPAY ==
[2021-04-03 15:08] VITALS: BMI 30.8
--- NOTE | 2021-04-03 15:18 | PC.NURSE ---
Report to the Outpatient Waiting Room, entrance under the green pavilion located off [facility], at time _0700 on date _04/13/21 . OR Time: _0900 . - You and your visitor will be asked a series of questions to screen for COVID 19 for your protection. - A mask is required within the hospital. - Only one visitor is allowed at this time. Patient visitors will be guided where to wait when not with patient. Preoperative COVID Testing Requirements: No COVID Test needed if: (proof is required; if not received patient will have Rapid Test prior to entry) - Patient has received COVID Vaccine at least 14 days prior to procedure date or - Patient has positive COVID test result within last 90 days of surgery date. COVID Test needed if above criteria is not met If not COVID vaccinated a COVID test must be conducted within 72 hours of surgery and patient is asked to isolate self from time of testing until procedure. You will go to the [facility] for your COVID testing. The [facility] is located at the corner of [address] from [facility]. You will only be called if COVID results are positive and your surgeon may reschedule your elective surgery date. Patients may have clear liquids (water, carbonated beverages, clear teas, apple juice) until 3 hours prior to surgery with a maximum of 20 ounces. - No food from midnight until time of surgery - Infants may have breast milk until 4 hours before surgery, formula 6 hours prior to surgery. - Children will be allowed to drink immediately following surgery. If applicable, please bring a bottle or sippy cup to assist with drinking. Juice, water, soda, and popsicles are readily available. For infants on formula, please bring formula the day of surgery. Pacifiers are allowed. Take the following medications with a SIP of water the morning of surgery: NONE Medications to discontinue per physician __NONE Date to take last dose Please no make-up, nail kinyarwanda, hairspray, perfume, deodorant, or body powder the day of surgery. No jewelry (including any body piercings) or valuables the day of surgery, leave them at home. Please take a shower or bath the night before, or the morning of, surgery with an antibacterial soap. Wear comfortable, loose fitting clothing. Children are encouraged to wear pajamas. - Jewelry must be removed prior to entering the operating room. Rings and piercings that are not removed may be cut off. - The hospital will not accept responsibility for valuables. - Please leave all valuables, including medications, at home the day of surgery. If you are going home after surgery, a licensed special needs bus driver must drive you home. - NO public transportation without another adult. - We recommend that an adult stay with you for 24 hours following discharge. - We also recommend that you do not drive, make important decision, drink alcoholic beverages, or take any drugs that were not prescribed by your health care provider for at least 24 hours after your discharge time. For Pediatric surgeries, we recommend two adults accompany the child home (only one inside the building at this time). Follow any additional instructions given to you from your surgeon. Telephone instructions given to __SPOUSE ROSAURA and asked if any additional questions and then verbalized understanding. Patient advised to call surgeon office or pre surgery nurse liaison [phone] if any additional questions.
[2021-04-13] VITALS (9 sets, daily range): BP systolic 124–149; BP diastolic 66–89; PULSE 66–106; RESP 14–18; TEMP 36.4–37.3; O2SAT 94–100
--- NOTE | 2021-04-13 06:50 | WPDHPUPDATE1 ---
History and Physical Update Update Date/Time: 04/13/21 06:50 History and Physical has been reviewed, including an updated exam of the patient. There are NO changes in the patient's condition. Risks, benefits, and alternatives have been discussed and questions answered. Patient agrees to proceed with procedure.
[2021-04-13] MEDS: LACTATED RINGERS 1,000 ML 30 ML IV CONT ×2 (07:35→10:46)
--- NOTE | 2021-04-13 08:00 | P.PNAN_ITS ---
Anes - Initial Pre Proc Eval Procedure: Operation Date: 04/13/21 09:00 Proposed Procedures p Trans Urethral Resection Bladder Tumor - Uziel Lopez MD Date/Time: 04/13/21 08:00 Surgeon: Uziel Lopez MD Pre Op Diagnosis: bladder tumors, gross hematuria Patient Data Age: 75 Gender: M Height: 1.78 m Weight: 102.6 kg Last Vital Signs Temp 37.3 C 04/13/21 07:03 Pulse 91 04/13/21 07:03 Resp 18 04/13/21 07:03 BP 147/68 H 04/13/21 07:03 Pulse Ox 98 04/13/21 07:03 Allergies Allergy/AdvReac Type Severity Reaction Status Date / Time cephalexin [From Keflex] Allergy Intermediate rash Verified 04/13/21 07:52 Home Medications Medication Instructions Recorded Confirmed Type docusate sodium [Colace] 200 mg PO DAILY 09/07/19 04/13/21 History tamsulosin 0.4 mg PO BID 09/07/19 04/13/21 History finasteride 5 mg tablet 5 mg PO DAILY #90 tablet 10/24/20 04/13/21 Rx atorvastatin 20 mg tablet 20 mg PO QPM #90 tablet 01/20/21 04/13/21 Rx lisinopril 20 mg tablet See Rx Instructions .ROUTE 03/07/21 04/13/21 Rx .COMPLEX #90 tablet Patient hx anesthesia problems: none Family hx anesthesia problems: none Results Review: All pre-operative results and documents have been reviewed as part of the pre-operative evaluation. [facility] Past Medical History Medical History Asbestos exposure Bladder cancer CLL (chronic lymphocytic leukemia) HTN (hypertension) Hyperlipidemia Obesity Surgical History Surgical History (Updated 04/13/21 @ 08:00 by Yoshi Mir MD) Hx of cystoscopy Family History Family History Mother Cerebrovascular accident Father Family history of primary malignant neoplasm of liver Family history of liver disease Other Family history of hypercholesterolemia Hypertension Social History Social History Social History: Smoking packs per day: 1 Smoking cigarettes per day: 20.0 Years smoked: 24 Smoking pack-years: 24.00 Smoking status: Former smoker Tobacco type: cigarettes Second hand tobacco smoke exposure: No Smoking end date: 05/27/84 Alcohol intake: never Substance use: never Substance use type: does not use Living arrangements: with family Gender identity (if verbalized by the patient): Male Sexual Orientation (if Verbalized by the Patient): Straight or Heterosexual Spiritual care concerns: No Anes - Eval Final PreProcedure Day of Procedure 04/13/21 08:00 Patient weight: obese Heart: regular rate and rhythm Lungs: clear to auscultation Airway: Mallampati scale class III Neurological: alert and oriented Last oral intake: >/= 8 hours ASA classification: III Emergent: no Anesthetic plan: proceed Anesthesia type and monitoring: general LMA and standard monitoring Results Review: All pre-operative results and documents have been reviewed as part of the pre-operative evaluation. Informed Consent: The patient's anesthetic plan and its attendant risks and benefits were discussed with the patient/family/POA. Questions were solicited and answers provided to the satisfaction of th
[2021-04-13] MEDS: levoFLOXacin 500 MG/D5W 100 ML 500 MG/100 ML BAG 100 MG IVPB (08:42)
--- NOTE | 2021-04-13 09:33 | W.PM.PROC2 ---
Procedure Note - Detailed Date of Procedure 04/13/21 Pre-op Diagnosis Recurrent bladder tumor Post-op Diagnosis same Procedure Performed TURBT (medium, 4cm) Surgeon Uziel Lopez MD Anesthesia general Description of Procedure Patient is brought to the operative suite where he has prepped draped in routine sterile fashion while in dorsal lithotomy position. Twenty-four F resectoscope was placed in his bladder. He has about a 4 cm area of hyperemia in the left anterior lateral bladder wall suggestive of recurrent neoplasm. Remainder of the bladder mucosa is normal. This area is resected in its entirety with an attempt made to include detrusor muscle for pathological evaluation of invasion. Left ureteral orifice was identified and preserved, particularly in cauterization with a 5 mm rollerball. Because of the thin nature of his bladder wall following multiple resections I opted against postoperative chemotherapy installation. An 18 F catheter was left to drainage at the termination. Estimated Blood Loss 0 Drains Yes Packing No Pathology yes Complications No immediate complications Condition stable Disposition PACU
[2021-04-13] MEDS: fentaNYL CITRATE INJ (*CRX) 100 MCG/2 ML VIAL 25 MCG IV PUSH ×4 (09:38→09:55)
--- NOTE | 2021-04-13 09:40 | SUR.PHASEI ---
PT C/O BURNING TO PENIS. FENTANYL GIVEN PRN
--- NOTE | 2021-04-13 09:48 | SUR.PHASEI ---
PT STATES BURNING MUCH BETTER NOW
--- NOTE | 2021-04-13 10:12 | SUR.PHASEI ---
DR CARREON IN PACU SPEAKING TO PT
--- NOTE | 2021-04-13 11:20 | SUR.PHASEII ---
PATIENT DRINKING WATER WELL. URINE MANAGER PROPERTY; NOW PINK; NO CLOTS NOTED. AWAITING DR. CARREON TO DETERMINE WHETHER PATIENT WILL NEED TO GO HOME WITH PADRON CATHETER OR NOT.
[2021-04-13] MEDS: ACETAMINOPHEN 500 MG TABLET 1000 MG PO (11:53)
== END 2021-04-13 11:57 | disposition home or self-care (01) ==
PROVIDERS: PCP Family Medicine; Visit Provider Urology
PROC: 0TBB8ZZ Excision of Bladder, Via Natural or Artificial Opening Endoscopic (ICD-10-PCS; CPT 52235; principal; 2021-04-13 09:00)
DX: C67.3 Malignant neoplasm of anterior wall of bladder (principal); I10 Essential (primary) hypertension; E78.5 Hyperlipidemia, unspecified; C91.10 Chronic lymphocytic leukemia of B-cell type not having achieved remission; Z87.891 Personal history of nicotine dependence; E66.9 Obesity, unspecified; Z68.32 Body mass index [BMI] 32.0-32.9, adult
CPT/HCPCS: 52235; 88305; A9270; J1200; J1956; J2250; J2405; J2704; J3010; J7120

== ENCOUNTER → 2021-05-15 09:51 | Outpatient (CLI) | payer OTHER, SELFPAY ==
[2021-05-15 14:36] LABS: Influenza Control Positive
[2021-05-17 19:36] LABS: SARS-CoV-2 RNA PCR Negative
== END ==
PROVIDERS: Nurse Practitioner Gerontology; PCP Family Medicine; Visit Provider Family Medicine
DX: Z20.822 Contact with and (suspected) exposure to COVID-19 (principal)
CPT/HCPCS: 87804; C9803; U0003; U0005

== ENCOUNTER 2021-07-20 00:12 | Day surgery (SDC) | payer OTHER, SELFPAY ==
--- NOTE | 2021-07-17 07:13 | P.PNUR_ITS ---
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 These continue to recur despite multiple resections and courses of both induction and maintenance chemotherapy to the bladder. Will most recent surveillance cystoscopy he is shown to have a pedunculated neoplasm that has recurred in the anterior bladder neck. Review of Systems Cardiovascular: Cardiovascular: Denies chest pain, Denies lightheadedness, Denies palpitations and Denies dyspnea Respiratory: Respiratory: Denies dyspnea Gastrointestinal: Gastrointestinal: Denies diarrhea, Denies nausea and Denies vomiting Genitourinary: Genitourinary: Denies hematuria and Denies dysuria Endocrine: Endocrine: Denies palpitations Exam Const: General: no acute distress Resp: Effort & Inspection: normal respiratory effort GI: Inspection: non-distended GI Palp: No abdominal tenderness and No Guarding due to palpation present (GI) Auscultation: normal bowel sounds
--- NOTE | 2021-07-17 11:10 | PC.NURSE ---
Report to the Outpatient Waiting Room, entrance under the green pavilion located off [facility], at time _1130 on date _07/20/21 . OR Time: __0 . - You and your visitor will be asked a series of questions to screen for COVID 19 for your protection. - A mask is required within the hospital. Preoperative COVID Testing Requirements: No COVID Test needed if: (proof is required; if not received patient will have Rapid Test prior to entry) - Patient has received COVID Vaccine at least 14 days prior to procedure date or - Patient has positive COVID test result within last 90 days of surgery date. COVID Test needed if above criteria is not met If not COVID vaccinated a COVID test must be conducted within 72 hours of surgery and patient is asked to isolate self from time of testing until procedure. You will go to the [facility] for your COVID testing. The [facility] site is located at the corner of [address] from [facility]. You will only be called if COVID results are positive and your surgeon may reschedule your elective surgery date. Patients may have clear liquids (water, carbonated beverages, clear teas, apple juice) until 3 hours prior to surgery with a maximum of 20 ounces. - No food from midnight until time of surgery - Infants may have breast milk until 4 hours before surgery, infant formula 6 hours prior to surgery. - Children will be allowed to drink immediately following surgery. If applicable, please bring a bottle or sippy cup to assist with drinking. Juice, water, soda, and popsicles are readily available. For infants on formula, please bring formula the day of surgery. Pacifiers are allowed. Take the following medications with a SIP of water the morning of surgery: ____NONE Medications to discontinue per physician NONE Date to take last dose Please no make-up, nail zimbabwean, hairspray, perfume, deodorant, or body powder the day of surgery. No jewelry (including any body piercings) or valuables the day of surgery, leave them at home. Please take a shower or bath the night before, or the morning of, surgery with an antibacterial soap. Wear comfortable, loose fitting clothing. Children are encouraged to wear pajamas. - Jewelry must be removed prior to entering the operating room. Rings and piercings that are not removed may be cut off. - The hospital will not accept responsibility for valuables. - Please leave all valuables, including medications, at home the day of surgery. If you are going home after surgery, a licensed public transit bus driver must drive you home. - NO public transportation without another adult. - We recommend that an adult stay with you for 24 hours following discharge. - We also recommend that you do not drive, make important decision, drink alcoholic beverages, or take any drugs that were not prescribed by your health care provider for at least 24 hours after your discharge time. For Pediatric surgeries, we recommend two adults accompany the child home (only one inside the building at this time). One visitor will be allowed to accompany the patient into the hospital. Patients visitor will be instructed to remain with patient at all times or leave the building. We will allow the visitor to come back to the postoperative area when patient is ready. Follow any additional instructions given to you from your surgeon. Telephone instructions given to PATIENT AND ROSAURA and asked if any additional questions and then verbalized understanding. Patient advised to call surgeon office or pre surgery nurse liaison [phone] if any additional questions.
[2021-07-17 11:11] VITALS: BMI 33.0
[2021-07-20] VITALS (10 sets, daily range): BP systolic 133–158; BP diastolic 66–99; PULSE 83–100; RESP 10–21; TEMP 36.3–36.9; O2SAT 97–100
--- NOTE | 2021-07-20 06:45 | WPDHPUPDATE1 ---
History and Physical Update Update Date/Time: 07/20/21 06:45 History and Physical has been reviewed, including an updated exam of the patient. There are NO changes in the patient's condition. Risks, benefits, and alternatives have been discussed and questions answered. Patient agrees to proceed with procedure.
[2021-07-20] MEDS: LACTATED RINGERS 1,000 ML 30 ML IV CONT (10:45)
--- NOTE | 2021-07-20 11:05 | WPDANESEPPF ---
Anes - Initial Pre Proc Eval Procedure: Operation Date: 07/20/21 13:00 Proposed Procedures p Trans Urethral Resection Bladder Tumor with Gemcitabine Instillation - Uziel Lopez MD Date/Time: 07/20/21 11:05 Surgeon: Uziel Lopez MD Pre Op Diagnosis: bladder cancer Patient Data Age: 75 Gender: M Height: 1.78 m Weight: 101.7 kg Last Vital Signs Temp 36.3 C L 07/20/21 10:23 Pulse 92 07/20/21 10:23 Resp 16 07/20/21 10:23 BP 152/76 H 07/20/21 10:23 Pulse Ox 100 07/20/21 10:23 Allergies Allergy/AdvReac Type Severity Reaction Status Date / Time cephalexin [From Keflex] Allergy Intermediate rash Verified 07/20/21 10:27 Home Medications Medication Instructions Recorded Confirmed Type docusate sodium [Colace] 200 mg PO BID 09/07/19 07/20/21 History tamsulosin 0.4 mg PO BID 09/07/19 07/20/21 History finasteride 5 mg tablet 5 mg PO DAILY #90 tablet 10/24/20 07/20/21 Rx atorvastatin 20 mg tablet 20 mg PO QPM #90 tablet 01/20/21 07/20/21 Rx lisinopril 20 mg tablet See Rx Instructions .ROUTE 03/07/21 07/20/21 Rx .COMPLEX #90 tablet loratadine [Claritin] 10 mg PO DAILY 07/20/21 07/20/21 History Patient hx anesthesia problems: none Family hx anesthesia problems: none Results Review: All pre-operative results and documents have been reviewed as part of the pre-operative evaluation. [facility] Past Medical History Medical History Asbestos exposure Bladder cancer CLL (chronic lymphocytic leukemia) HTN (hypertension) Hyperlipidemia Obesity Triceps tendon rupture Surgical History Surgical History Hx of cystoscopy Family History Family History Mother Cerebrovascular accident Father Family history of primary malignant neoplasm of liver Family history of liver disease Other Family history of hypercholesterolemia Hypertension Social History Social History Social History: Smoking packs per day: 1 Smoking cigarettes per day: 20.0 Years smoked: 24 Smoking pack-years: 24.00 Smoking status: Former smoker Tobacco type: cigarettes Second hand tobacco smoke exposure: No Smoking end date: 05/27/84 Alcohol intake: never Substance use: never Substance use type: does not use Living arrangements: with family Gender identity (if verbalized by the patient): Male Sexual Orientation (if Verbalized by the Patient): Straight or Heterosexual Spiritual care concerns: No Anes - Eval Final PreProcedure Day of Procedure 07/20/21 11:05 Patient weight: obese Heart: regular rate and rhythm Lungs: clear to auscultation Airway: Mallampati scale class III Neurological: alert and oriented Last oral intake: >/= 8 hours ASA classification: III Emergent: no Anesthetic plan: proceed Anesthesia type and monitoring: general LMA and standard monitoring Results Review: All pre-operative results and documents have been reviewed as part of the pre-operative evaluation. Informed Consent: The patient's anesthetic plan and its attendant risks and benefits were discussed with the patient/family/POA. Questions were solicited and answers provided to the satisfaction of the patient/family/POA.
[2021-07-20] MEDS: levoFLOXacin 500 MG/D5W 100 ML 500 MG/100 ML BAG 100 MG IVPB (11:21)
[2021-07-20] MEDS: LIDOCAINE HCL 2% GEL UROJET 10 ML PKG MUCOUS MEM (11:35)
--- NOTE | 2021-07-20 11:56 | P.OP_ITS ---
Procedure Note - Detailed Date of Procedure 07/20/21 Pre-op Diagnosis Recurrent bladder cancer Post-op Diagnosis same Procedure Performed TURBT (medium, 3-4mm) Surgeon Uziel Lopez MD Anesthesia general Description of Procedure The patient was brought to the operative suite where [he/she] is prepped and radha ped in a routine sterile fashion while in the dorsal lithotomy position. This is done after the uneventful administration of a general LMA. 2% Xylocaine jelly is introduced intraurethrally and allowed to stand for an appropriate period of time. A 24F resectoscope sheath was placed in the bladder and the bladder is circumferentially inspected carefully. 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 This area is resected in its entirety with an attempt made to include detrusor muscle for pathological evaluation of invasion. I resected widely around the neoplasm base. The base and periphery of this resected side is cauterized with a loop electrode. The bladder is emptied and the resectoscope was removed and an 18 F urethral catheter was placed to drainage. The patient is taken to the recovery room having tolerated this procedure well. Estimated Blood Loss 5 Drains Yes Packing No Pathology yes Complications No immediate complications Condition stable Disposition PACU
--- NOTE | 2021-07-20 12:00 | P.OP_ITS ---
Procedure Note - Detailed Date of Procedure 07/20/21 Pre-op Diagnosis Recurrent bladder cancer Post-op Diagnosis same Procedure Performed Gemcitabine instillation Surgeon Uziel Lopez MD Anesthesia none Description of Procedure With the patient in the supine position, a 16F Santiago catheter is placed using st erile technique. Using a protective facemask, gown and double layer of gloves Gemcitabine 2gm in 100cc saline is administered through the catheter/into the bladder. The catheter is then plugged. Patient was instructed to lie supine x20min, then to roll both the left and right x20 min. each. Total dwell time will be 60 min., after which the bladder will be drained and catheter removed. Estimated Blood Loss 5 Drains Yes Packing No Pathology none sent Complications No immediate complications Condition stable Disposition PACU
[2021-07-20] MEDS: SODIUM CHLORIDE 0.9% IV 23.7 ML, GEMCITABINE HCL 1,000 MG BLADDER ×2 (12:07)
--- NOTE | 2021-07-23 17:35 | PM.HPGS ---
History of Present Illness History of Present Illness Consent: Risks, benefits, and alternatives have been discussed and questions answered. Patient agrees to proceed with procedure. Chief complaint: bladder cancer Narrative: Mark Domingo is a 75 year old male with long history of recurrent bladder tumors. Presents for TURBT after surveillance cysto. show recent recurrence. Review of Systems Cardiovascular: Cardiovascular: Denies chest pain, Denies lightheadedness, Denies palpitations and Denies dyspnea Respiratory: Respiratory: Denies dyspnea Gastrointestinal: Gastrointestinal: Denies diarrhea, Denies nausea and Denies vomiting Genitourinary: Genitourinary: Denies hematuria and Denies dysuria Endocrine: Endocrine: Denies palpitations PMFSH Past Medical History Medical History Asbestos exposure Bladder cancer CLL (chronic lymphocytic leukemia) HTN (hypertension) Hyperlipidemia Obesity Triceps tendon rupture Surgical History Surgical History Hx of cystoscopy Family History Family History Mother Cerebrovascular accident Father Family history of primary malignant neoplasm of liver Family history of liver disease Other Family history of hypercholesterolemia Hypertension Social History Social History Social History: Smoking packs per day: 1 Smoking cigarettes per day: 20.0 Years smoked: 24 Smoking pack-years: 24.00 Smoking status: Former smoker Tobacco type: cigarettes Second hand tobacco smoke exposure: No Smoking end date: 05/27/84 Alcohol intake: never Substance use: never Substance use type: does not use Living arrangements: with family Gender identity (if verbalized by the patient): Male Sexual Orientation (if Verbalized by the Patient): Straight or Heterosexual Spiritual care concerns: No Meds Home Medications and Allergies Home Medications Medication Instructions Recorded Confirmed Type docusate sodium [Colace] 200 mg PO BID 09/07/19 07/20/21 History tamsulosin 0.4 mg PO BID 09/07/19 07/20/21 History finasteride 5 mg tablet 5 mg PO DAILY #90 tablet 10/24/20 07/20/21 Rx atorvastatin 20 mg tablet 20 mg PO QPM #90 tablet 01/20/21 07/20/21 Rx lisinopril 20 mg tablet See Rx Instructions .ROUTE 03/07/21 07/20/21 Rx .COMPLEX #90 tablet hydrocodone-acetaminophen 1 - 2 tablet PO Q6H PRN #20 tablet 07/20/21 Rx levofloxacin 500 mg PO DAILY #3 tablet 07/20/21 Rx loratadine [Claritin] 10 mg PO DAILY 07/20/21 07/20/21 History Allergies Allergy/AdvReac Type Severity Reaction Status Date / Time cephalexin [From Keflex] Allergy Intermediate rash Verified 07/20/21 10:27 Exam Const: General: no acute distress Resp: Effort & Inspection: normal respiratory effort GI: Inspection: non-distended GI Palp: No abdominal tenderness and No Guarding due to palpation present (GI) Auscultation: normal bowel sounds Assessment and Plan Assessment and plan (1) Cancer of anterior wall of urinary bladder: Code(s): C67.3 - Malignant neoplasm of anterior wall of bladder Status: Acute Assessment and Plan: TURBT followed by Gemcitibine instillation.
== END 2021-07-20 14:13 | disposition home or self-care (01) ==
PROVIDERS: PCP Internal Medicine; Visit Provider Urology
PROC: 0TBB8ZZ Excision of Bladder, Via Natural or Artificial Opening Endoscopic (ICD-10-PCS; CPT 52235; principal; 2021-07-20 13:00)
DX: C67.3 Malignant neoplasm of anterior wall of bladder (principal); C91.10 Chronic lymphocytic leukemia of B-cell type not having achieved remission; I10 Essential (primary) hypertension; E78.5 Hyperlipidemia, unspecified; E66.9 Obesity, unspecified; Z68.32 Body mass index [BMI] 32.0-32.9, adult; Z87.891 Personal history of nicotine dependence
CPT/HCPCS: 52235; 51720; 88305; A9270; J1100; J1956; J2405; J2704; J3010; J7120; J9201

== ENCOUNTER 2021-08-21 00:51 | Day surgery (SDC) | payer OTHER, SELFPAY ==
--- NOTE | 2021-08-18 13:56 | PC.NURSE ---
Report to the Outpatient Waiting Room, entrance under the green pavilion located off [facility], at time _1030 on date ___08/21/21____. OR Time: _1230 . - You and your visitor will be asked a series of questions to screen for COVID 19 for your protection. - A mask is required within the hospital. Preoperative COVID Testing Requirements: No COVID Test needed if: (proof is required; if not received patient will have Rapid Test prior to entry) - Patient has received COVID Vaccine at least 14 days prior to procedure date or - Patient has positive COVID test result within last 90 days of surgery date. COVID Test needed if above criteria is not met If not COVID vaccinated a COVID test must be conducted within 72 hours of surgery and patient is asked to isolate self from time of testing until procedure. You will go to the [facility] for your COVID testing. The [facility] is located at the corner of [address] [facility]. You will only be called if COVID results are positive and your surgeon may reschedule your elective surgery date. Patients may have clear liquids (water, carbonated beverages, clear teas, apple juice) until 3 hours prior to surgery with a maximum of 20 ounces. - No food from midnight until time of surgery - Infants may have breast milk until 4 hours before surgery, infant formula 6 hours prior to surgery. - Children will be allowed to drink immediately following surgery. If applicable, please bring a bottle or sippy cup to assist with drinking. Juice, water, soda, and popsicles are readily available. For infants on formula, please bring formula the day of surgery. Pacifiers are allowed. Take the following medications with a SIP of water the morning of surgery: ____NONE Medications to discontinue per physician NONE Date to take last dose Please no make-up, nail british, hairspray, perfume, deodorant, or body powder the day of surgery. No jewelry (including any body piercings) or valuables the day of surgery, leave them at home. Please take a shower or bath the night before, or the morning of, surgery with an antibacterial soap. Wear comfortable, loose fitting clothing. Children are encouraged to wear pajamas. - Jewelry must be removed prior to entering the operating room. Rings and piercings that are not removed may be cut off. - The hospital will not accept responsibility for valuables. - Please leave all valuables, including medications, at home the day of surgery. If you are going home after surgery, a licensed uke driver must drive you home. - NO public transportation without another adult. - We recommend that an adult stay with you for 24 hours following discharge. - We also recommend that you do not drive, make important decision, drink alcoholic beverages, or take any drugs that were not prescribed by your health care provider for at least 24 hours after your discharge time. For Pediatric surgeries, we recommend two adults accompany the child home (only one inside the building at this time). One visitor will be allowed to accompany the patient into the hospital. Patients visitor will be instructed to remain with patient at all times or leave the building. We will allow the visitor to come back to the postoperative area when patient is ready. Follow any additional instructions given to you from your surgeon. Telephone instructions given to ____PATIENT and asked if any additional questions and then verbalized understanding. Patient advised to call surgeon office or pre surgery nurse liaison [phone] if any additional questions.
[2021-08-18 13:57] VITALS: BMI 33.0
--- NOTE | 2021-08-20 16:42 | PM.HPGS ---
History of Present Illness History of Present Illness Consent: Risks, benefits, and alternatives of placement a Port-A-Cath have been discussed and questions answered. Patient agrees to proceed with procedure. Chief complaint: Bladder Cancer Narrative: Mark Domingo is a 75 year old male has recently been diagnosed with extensive in-situ and non- invasive bladder cancer. Patient has had long-term history of periodic less invasive bladder cancers (not muscle invasive) removed by cystoscopy. He also has some element of BPH controlled on medication. At this time he has seen Dr. Lopez who performed a further resection but because of the invasive nature of the tumor he has now seen Dr. Almonte for oncology consultation. They are now planning a course of treatment which will include immunotherapy. Therefore, it has been recommended the patient consider having a port placed for good vascular access. See plan below. Review of Systems Constitutional: Constitutional: Reports no additional constitutional complaints, Reports fatigue and Denies malaise Comments: Chronic obesity, BMI 33 Eyes: Eyes: Denies change in vision and Denies loss of vision ENT: Reports Normal hearing present, Denies change in voice, Denies dizziness, Denies hoarseness and Denies sore throat Cardiovascular: Cardiovascular: Denies chest pain, Denies leg edema and Denies dyspnea Comments: History of hypertension and hyperlipidemia on medications. Respiratory: Respiratory: Denies cough, Denies dyspnea and Denies wheezing Gastrointestinal: Gastrointestinal: Denies hematochezia, Denies change in bowel habits and Denies heartburn Genitourinary: Genitourinary: Denies urinary frequency and Denies urinary incontinence Comments: Known bladder cancer Known BPH on Flomax Neurologic: Reports Normal hearing present, Denies confusion, Denies dizziness, Denies loss of vision, Denies memory loss and Denies seizure-like activity Psychiatric: Psychiatric: Denies confusion, Denies depression and Denies memory loss Endocrine: Endocrine: Denies cold intolerance and Reports fatigue Hematologic/Lymphatic: Hematologic/Lymphatic: Denies easy bleeding and Denies easy bruising Comments: History of CLL. Recent blood work only mild anemia. Allergic/Immunologic: Allergic/Immunologic: Denies wheezing Comments: Patient allergy to cephalexin rash. Will plan on using clindamycin for preop antibiotic. [facility] Past Medical History Medical History Asbestos exposure Bladder cancer CLL (chronic lymphocytic leukemia) (Unknown) HTN (hypertension) Hyperlipidemia Obesity Triceps tendon rupture Surgical History Surgical History History of umbilical hernia repair Hx of cystoscopy Family History Family History Mother Cerebrovascular accident Father Family history of primary malignant neoplasm of liver Family history of liver disease Other Family history of hypercholesterolemia Hypertension Social History Social History Social History: Smoking packs per day: 1 Smoking cigarettes per day: 20.0 Years smoked: 24 Smoking pack-years: 24.00 Smoking status: Former smoker Tobacco type: cigarettes Second hand tobacco smoke exposure: No Smoking end date: 05/27/84 Alcohol intake: never Substance use: never Substance use type: does not use Living arrangements: with family Gender identity (if verbalized by the patient): Male Sexual Orientation (if Verbalized by the Patient): Straight or Heterosexual Spiritual care concerns: No Meds Home Medications and Allergies Home Medications Medication Instructions Recorded Confirmed Type docusate sodium [Colace] 200 mg PO BID 09/07/19 08/18/21 History tamsulosi
--- NOTE | ~2021-08-21 | XR_ITS ---
EXAMINATION: XR fl guide central line place DATE: 08/21/2021 12:28 INDICATION: Port catheter insertion TECHNIQUE: A fluoroscopic image of the right upper chest was obtained during procedure performed by Justine Carvajal. Radiologist was not present for the imaging or procedure. The amount of fluoroscopy time used during this procedure was 0.2 minutes. FINDINGS: Right internal jugular central venous port catheter with distal tip near the superior cavoatrial junc tion. Visualized portion of the right upper lung is clear with no pneumothorax. IMPRESSION: 1. Right internal jugular central venous port catheter in expected position. Reviewed, dictated and finalized at location A.
--- NOTE | ~2021-08-21 | XR_ITS ---
EXAMINATION: XR chest port-a-cath/central DATE: 08/21/2021 12:56 INDICATION: Port placement. TECHNIQUE: A single frontal view of the chest was obtained. COMPARISON: CT abdomen and pelvis 03/05/2018 FINDINGS: There is chronic mild elevation of right hemidiaphragm. No pneumonia, pleural effusion, or pneumothorax. The heart size is normal. There is a right internal jugular port with tip in superior v luis eduardo cava. IMPRESSION: 1. Port tip in superior vena cava. Reviewed, dictated and finalized at location A.
--- NOTE | 2021-08-21 08:09 | P.PNAN_ITS ---
Anes - Initial Pre Proc Eval Procedure: Operation Date: 08/21/21 11:30 Proposed Procedures p Insertion Jozef Cath - Wallace Carvajal MD Date/Time: 08/21/21 08:09 Surgeon: Wallace Carvajal MD Pre Op Diagnosis: Bladder Cancer Patient Data Age: 75 Gender: M Height: 1.78 m Weight: 104.35 kg Allergies Allergy/AdvReac Type Severity Reaction Status Date / Time cephalexin [From Keflex] Allergy Intermediate rash Verified 08/18/21 13:48 Home Medications Medication Instructions Recorded Confirmed Type docusate sodium [Colace] 200 mg PO BID 09/07/19 08/18/21 History tamsulosin 0.4 mg PO BID 09/07/19 08/18/21 History atorvastatin 20 mg tablet 20 mg PO QPM #90 tablet 01/20/21 08/18/21 Rx loratadine [Claritin] 10 mg PO PRN PRN 07/20/21 08/18/21 History finasteride 5 mg tablet 5 mg PO DAILY #90 tablet 08/16/21 08/18/21 Rx lisinopril 20 mg tablet See Rx Instructions .ROUTE 08/16/21 08/18/21 Rx .COMPLEX #90 tablet acetaminophen [Tylenol Extra 500 mg PO Q6H PRN 08/18/21 08/18/21 History Strength] Patient hx anesthesia problems: none Family hx anesthesia problems: none Results Review: All pre-operative results and documents have been reviewed as part of the pre-operative evaluation. [facility] Past Medical History Medical History Asbestos exposure Bladder cancer CLL (chronic lymphocytic leukemia) (Unknown) HTN (hypertension) Hyperlipidemia Obesity Triceps tendon rupture Surgical History Surgical History History of umbilical hernia repair Hx of cystoscopy Family History Family History Mother Cerebrovascular accident Father Family history of primary malignant neoplasm of liver Family history of liver disease Other Family history of hypercholesterolemia Hypertension Social History Social History Social History: Smoking packs per day: 1 Smoking cigarettes per day: 20.0 Years smoked: 24 Smoking pack-years: 24.00 Smoking status: Former smoker Tobacco type: cigarettes Second hand tobacco smoke exposure: No Smoking end date: 05/27/84 Alcohol intake: never Substance use: never Substance use type: does not use Living arrangements: with family Gender identity (if verbalized by the patient): Male Sexual Orientation (if Verbalized by the Patient): Straight or Heterosexual Spiritual care concerns: No Anes - Eval Final PreProcedure Day of Procedure 08/21/21 08:09 Patient weight: obese Heart: regular rate and rhythm Lungs: clear to auscultation and normal air movement Airway: Mallampati scale class II Neurological: alert and oriented Last oral intake: >/= 8 hours ASA classification: III Emergent: no Anesthetic plan: proceed Anesthesia type and monitoring: general GIVS Results Review: All pre-operative results and documents have been reviewed as part of the pre-operative evaluation. Informed Consent: The patient's anesthetic plan and its attendant risks and benefits were discussed with the patient/family/POA. Questions were solicited and answers provided to the satisfaction of the patient/family/POA.
[2021-08-21] MEDS: KETOROLAC 15 MG/ML VIAL (*BKC) IV PUSH (10:51)
[2021-08-21] MEDS: LACTATED RINGERS 1,000 ML 30 ML IV CONT (10:51)
[2021-08-21 11:17] LABS: Hematocrit 47.1 % (42.0-52.0); Hemoglobin 15.1 g/dL (14.0-18.0); Mean Corpuscular HGB Conc 32.1 g/dl (32-36); Mean Corpuscular Hemoglobin 29.4 pg (26-34); Mean Corpuscular Volume 91.6 fl (80-100); Mean Platelet Volume 8.7 fl (7.4-10.4); Platelet Count Result 123 k/mm3 (150-375); Red Blood Count 5.14 M/mm3 (4.6-6.20); Red Cell Distribution Width 14.5 % (11.5-14.5); White Blood Count 27.7 K/mm3 (4.5-10.0)
[2021-08-21 11:27] LABS: Partial Thromboplastin Time 28.4 SECONDS (22.3-36.8); Prothrombin Time 13.2 Seconds (11.1-14.7)
--- NOTE | 2021-08-21 11:27 | WPDHPUPDATE1 ---
History and Physical Update Update Date/Time: 08/21/21 11:27 History and Physical has been reviewed, including an updated exam of the patient. There are NO changes in the patient's condition. Risks, benefits, and alternatives have been discussed and questions answered. Patient agrees to proceed with procedure.
[2021-08-21 11:39] LABS: Atypical Lymphocytes Present; Eosinophils Absolute Manual 0.55 K/mm3 (0.02-0.5); Eosinophils Percent Manual 2 % (0-4); Lymphocytes Absolute Manual 16.34 K/mm3 (1.1-4.5); Monocytes Absolute Manual 0.55 K/mm3 (0.1-0.90); Monocytes Percent Manual 2 % (3-9); Neutrophils Percent Manual 37 % (46-73); Platelet Estimate Adequate (Adequate); Smudge Cells PRESENT; Total Cells Counted 100
[2021-08-21] MEDS: CLINDAMYCIN 900 MG/D5W 50 ML 900 MG/50 ML PIGGYBACK 50 MG IVPB (11:47)
[2021-08-21 12:00] VITALS: BP 153/69; PULSE 87; RESP 16; TEMP 36.7; O2SAT 100
[2021-08-21] MEDS: HEPARIN SODIUM 5,000 UNITS/ML VIAL 5000 UNITS IRRIGATION (12:03)
[2021-08-21 12:45] VITALS: BP 120/71; PULSE 79; RESP 16; O2SAT 100
--- NOTE | 2021-08-21 12:51 | SUR.PHASEII ---
1245 PORTABLE CHEST XRAY TAKEN IN OP RECOVERY.
--- NOTE | 2021-08-21 13:10 | W.PM.PROC2 ---
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 Dr. Almonte has requested placement of a Port-A-Cath for use for IV access and chemotherapy. Findings Normal vascular anatomy in the right neck. Description of Procedure Patient was seen and marked in the pre-op area prior to coming to the OR. Patient was brought to the operating room. Patient was placed supine on the operating table and general IV sedation was induced. The nurse home visits nurse provided oxygen and IV sedation. Patient's head was carefully turned to the left side while in the supine position and the patient's entire neck and anterior chest on both sides was prepped and draped in the usual sterile fashion. Following this the appropriate time-out was completed confirming procedure and patient. We confirmed that all the needed equipment was present in the room. Following this the ultrasound probe was draped into the field and using the probe we carefully identified the carotid artery and jugular vein on the right neck. We then took a picture of the vascular anatomy of the neck and transferred from the ultrasound to the [facility] chart. I marked the skin directly over the Rt. internal jugular vein. I then used an 11 blade knife to make a small ashlie in the skin. Following this, using the continuous ultrasound guidance, a Cook needle was placed through the skin incision and on into this vein. I then was able to draw back good dark blood. Once this was completed a guidewire using a J-tip was advanced through the needle and then the needle and the guidewire cover were withdrawn. C-arm fluoroscopy was used to confirm that the guidewire was nicely in the venous system. Once this was confirmed with the C - arm, I preceded on by making the pocket for the port on the patient's anterior right chest approximately 3 centimeters below the clavicle overlying the chest wall. Local anesthetic was infiltrated into the skin where there was a transverse incision marked out. Incision was made and we made a pocket inferior to the incision with just a little dissection superior. The Smart port was tried in the pocket and seemed to fit well. Following this the catheter which had been placed on a tunneling device was tunneled from the port site on the anterior right chest up to the right neck where the small incision had been made slightly larger with an #11 blade knife. Then the catheter was pulled through so that we would have 15 centimeters to put into the central venous system once the dilation took place. Following this we placed the dilator and sheath over the guidewire in the jugular vein and carefully dilated the tract into the central venous system. The guidewire and dilator were then removed, carefully covering the end of the sheath to prevent air embolus. The end of the catheter which had been removed from the tunneling device and the tip checked was then inserted into the sheath and into the neck. I then carefully pulled the 2 arms of the tear-away sheath away as the assistant designer held the catheter in position with a DeBakey forceps. Following this we checked the position of the catheter with C-arm fluoroscopy confirming that the tip seemed to be in the distal superior vena cava near the junction with the right atrium. I felt that it was in good position and so the rest of the catheter was pulled down toward the feet into the port site. We then measured to the appropriate position to cut the catheter to attach it to the port stem. Then the connector sealing device for the catheter port was placed onto the catheter and then the cathete
[2021-08-21 13:15] VITALS: BP 139/79; PULSE 78; RESP 16
[2021-08-21 13:45] VITALS: BP 128/92; PULSE 71; RESP 16
[2021-08-21 14:00] VITALS: BP 140/73; PULSE 72; RESP 16
== END 2021-08-21 14:15 | disposition home or self-care (01) ==
PROVIDERS: PCP Internal Medicine; Visit Provider Surgery
PROC: (CPT 36561; principal; 2021-08-21 11:30)
DX: D09.0 Carcinoma in situ of bladder (principal); C91.10 Chronic lymphocytic leukemia of B-cell type not having achieved remission; I10 Essential (primary) hypertension; E78.5 Hyperlipidemia, unspecified; E66.9 Obesity, unspecified; Z68.32 Body mass index [BMI] 32.0-32.9, adult; Z87.891 Personal history of nicotine dependence
CPT/HCPCS: 36561; 36415; 76937; 77001; 85025; 85610; 85730; C1788; J1644; J1885; J2704; J3010; J7030; J7120

== ENCOUNTER 2021-12-08 09:52 | Outpatient (CLI) | payer OTHER, SELFPAY ==
--- NOTE | 2021-12-08 10:04 | ECG_ITS ---
Measurements Intervals [place] Rate: 81 P: 44 CO: 155 QRS: -20 QRSD: 143 T: -5 QT: 390 QTc: 453 Interpretive Statements SINUS RHYTHM RIGHT BUNDLE BRANCH BLOCK BASELINE ARTIFACT- I, II, III, AVR, AVL, AVF ABNORMAL ECG Electronically Signed On 12-08-2021 18:33:10 CDT by Eran Zaragoza D.O.
== END 2021-12-08 09:53 | disposition home or self-care (01) ==
LOC: ANHSURGERY 09:56
PROVIDERS: PCP Internal Medicine; Visit Provider Urology
DX: I10 Essential (primary) hypertension (principal); Z01.818 Encounter for other preprocedural examination; R94.31 Abnormal electrocardiogram [ECG] [EKG]
CPT/HCPCS: 93005

== ENCOUNTER 2021-12-14 00:28 | Day surgery (SDC) | payer OTHER, SELFPAY ==
--- NOTE | 2021-12-06 15:35 | PC.NURSE ---
Report to the Outpatient Waiting Room, entrance under the green pavilion located off [facility], at time 0630 on date __12/14/21 . OR Time: _829 . - You and your visitor will be asked a series of questions to screen for COVID 19 for your protection. - Only one visitor is allowed at this time. - The patient visitor is requested to leave or wait in car when not with patient. - A mask is required within the hospital. Patients may have clear liquids (water, carbonated beverages, clear teas, apple juice) until 3 hours prior to surgery with a maximum of 20 ounces. - No food from midnight until time of surgery - Infants may have breast milk until 4 hours before surgery, infant formula 6 hours prior to surgery. - Children will be allowed to drink immediately following surgery. If applicable, please bring a bottle or sippy cup to assist with drinking. Juice, water, soda, and popsicles are readily available. For infants on formula, please bring formula the day of surgery. Pacifiers are allowed. Take the following medications with a SIP of water the morning of surgery: ___NONE Medications to discontinue per physician NONE Date to take last dose Please no make-up, nail yakut, hairspray, perfume, deodorant, or body powder the day of surgery. No jewelry (including any body piercings) or valuables the day of surgery, leave them at home. Please take a shower or bath the night before, or the morning of, surgery with an antibacterial soap. Wear comfortable, loose fitting clothing. Children are encouraged to wear pajamas. - Jewelry must be removed prior to entering the operating room. Rings and piercings that are not removed may be cut off. - The hospital will not accept responsibility for valuables. - Please leave all valuables, including medications, at home the day of surgery. If you are going home after surgery, a licensed combine driver must drive you home. - NO public transportation without another adult. - We recommend that an adult stay with you for 24 hours following discharge. - We also recommend that you do not drive, make important decision, drink alcoholic beverages, or take any drugs that were not prescribed by your health care provider for at least 24 hours after your discharge time. For Pediatric surgeries, we recommend two adults accompany the child home (only one inside the building at this time). Follow any additional instructions given to you from your surgeon. If you or anyone in your household have experienced Covid symptoms in the past week, please notify your surgeon or the nurse liaison at the phone number below for possible testing. Telephone instructions given to __PATIENT and asked if any additional questions and then verbalized understanding. Patient advised to call surgeon office or pre surgery nurse liaison [phone] if any additional questions.
[2021-12-06 15:44] VITALS: BMI 32.3
--- NOTE | 2021-12-11 06:58 | PM.HPGS ---
History of Present Illness History of Present Illness Consent: Risks, benefits, and alternatives have been discussed and questions answered. Patient agrees to proceed with procedure. 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 Patient has been managed with multiple prior resections and intravesical BCG. He now presents for transurethral section of urothelial cancer in the prostatic urethra and a bladder biopsy. As before, he is aware the risk including hematuria, injury to the integrity of his bladder wall and recurrent neoplasm. Review of Systems Cardiovascular: Cardiovascular: Denies chest pain, Denies lightheadedness, Denies palpitations and Denies dyspnea Respiratory: Respiratory: Denies dyspnea Gastrointestinal: Gastrointestinal: Denies diarrhea, Denies nausea and Denies vomiting Genitourinary: Genitourinary: Denies hematuria and Denies dysuria Endocrine: Endocrine: Denies palpitations PMFSH Past Medical History Medical History Asbestos exposure Bladder cancer CLL (chronic lymphocytic leukemia) (Unknown) HTN (hypertension) Hyperlipidemia Obesity Triceps tendon rupture Surgical History Surgical History History of umbilical hernia repair Hx of cystoscopy Family History Family History Mother Cerebrovascular accident Father Family history of primary malignant neoplasm of liver Family history of liver disease Other Family history of hypercholesterolemia Hypertension Social History Social History Social History: Smoking packs per day: 1 Smoking cigarettes per day: 20.0 Years smoked: 24 Smoking pack-years: 24.00 Smoking status: Former smoker Tobacco type: cigarettes Second hand tobacco smoke exposure: No Smoking end date: 05/27/84 Alcohol intake: never Substance use: never Substance use type: does not use Gender identity (if verbalized by the patient): Male Sexual Orientation (if Verbalized by the Patient): Straight or Heterosexual Spiritual care concerns: No Meds Home Medications and Allergies Home Medications Medication Instructions Recorded Confirmed Type docusate sodium 100 mg capsule 200 mg PO BID 09/07/19 12/06/21 History (Colace) tamsulosin 0.4 mg capsule 0.4 mg PO BID 09/07/19 12/06/21 History loratadine 10 mg tablet (Claritin) 10 mg PO PRN PRN Allergy Symptoms 07/20/21 12/06/21 History finasteride 5 mg tablet 5 mg PO DAILY #90 tabs 08/16/21 12/06/21 Rx lisinopril 20 mg tablet See Rx Instructions .Route 08/16/21 12/06/21 Rx .COMPLEX #90 tabs acetaminophen 500 mg capsule 500 mg PO Q6H PRN Pain 08/18/21 12/06/21 History atorvastatin 20 mg tablet 20 mg PO QPM #90 tabs 11/16/21 12/06/21 Rx Allergies Allergy/AdvReac Type Severity Reaction Status Date / Time cephalexin [From Keflex] Allergy Intermediate rash Verified 12/06/21 15:26 Assessment and Plan Assessment and plan (1) Cancer of overlapping sites of bladder: Code(s): C67.8 - Malignant neoplasm of overlapping sites of bladder Status: Acute Assessment and Plan: TURBT of neoplasm and prostatic urethra and bladder biopsy
[2021-12-14] VITALS (8 sets, daily range): BP systolic 128–157; BP diastolic 71–86; PULSE 79–95; RESP 10–18; TEMP 36.3–36.6; O2SAT 100
--- NOTE | 2021-12-14 06:40 | WPDHPUPDATE1 ---
History and Physical Update Update Date/Time: 12/14/21 06:40 History and Physical has been reviewed, including an updated exam of the patient. There are NO changes in the patient's condition. Risks, benefits, and alternatives have been discussed and questions answered. Patient agrees to proceed with procedure.
[2021-12-14] MEDS: LACTATED RINGERS 1,000 ML 30 ML IV CONT (06:50)
--- NOTE | 2021-12-14 07:43 | WPDANESEPPF ---
Anes - Initial Pre Proc Eval Procedure: Operation Date: 12/14/21 08:30 Proposed Procedures p Trans Urethral Resection Bladder Tumor, - Uziel Lopez MD s Cystoscopy with Bladder Biopsy - Uziel Lopez MD Date/Time: 12/14/21 07:43 Surgeon: Uziel Lopez MD Pre Op Diagnosis: bladder CA Patient Data Age: 76 Gender: M Height: 1.78 m Weight: 99.5 kg Last Vital Signs Temp 36.6 C 12/14/21 06:33 Pulse 87 12/14/21 06:33 Resp 18 12/14/21 06:33 BP 157/81 H 12/14/21 06:33 Pulse Ox 100 12/14/21 06:33 O2 Del Method Room Air 12/14/21 06:33 Allergies Allergy/AdvReac Type Severity Reaction Status Date / Time cephalexin [From Keflex] Allergy Intermediate rash Verified 12/12/21 08:38 Home Medications Medication Instructions Recorded Confirmed Type docusate sodium 100 mg capsule 200 mg PO BID 09/07/19 12/12/21 History (Colace) tamsulosin 0.4 mg capsule 0.4 mg PO BID 09/07/19 12/12/21 History loratadine 10 mg tablet (Claritin) 10 mg PO PRN PRN Allergy Symptoms 07/20/21 12/12/21 History finasteride 5 mg tablet 5 mg PO DAILY #90 tabs 08/16/21 12/12/21 Rx lisinopril 20 mg tablet See Rx Instructions .Route 08/16/21 12/12/21 Rx .COMPLEX #90 tabs acetaminophen 500 mg capsule 500 mg PO Q6H PRN Pain 08/18/21 12/12/21 History atorvastatin 20 mg tablet 20 mg PO QPM #90 tabs 11/16/21 12/12/21 Rx Patient hx anesthesia problems: none Family hx anesthesia problems: none Results Review: All pre-operative results and documents have been reviewed as part of the pre-operative evaluation. [facility] Past Medical History Medical History Asbestos exposure Bladder cancer CLL (chronic lymphocytic leukemia) (Unknown) HTN (hypertension) Hyperlipidemia Obesity CRISTY (obstructive sleep apnea) Triceps tendon rupture Surgical History Surgical History History of umbilical hernia repair Hx of cystoscopy Family History Family History Mother Cerebrovascular accident Father Family history of primary malignant neoplasm of liver Family history of liver disease Other Family history of hypercholesterolemia Hypertension Social History Social History Social History: Smoking packs per day: 1 Smoking cigarettes per day: 20.0 Years smoked: 24 Smoking pack-years: 24.00 Smoking status: Former smoker Tobacco type: cigarettes Second hand tobacco smoke exposure: No Smoking end date: 05/27/84 Alcohol intake: never Substance use: never Substance use type: does not use Living arrangements: with family Gender identity (if verbalized by the patient): Male Sexual Orientation (if Verbalized by the Patient): Straight or Heterosexual Spiritual care concerns: No Anes - Eval Final PreProcedure Day of Procedure 12/14/21 07:43 Patient weight: obese Heart: regular rate and rhythm Lungs: decreased breath sounds Airway: Mallampati scale class II Neurological: alert and oriented Last oral intake: >/= 8 hours ASA classification: III Emergent: no Anesthetic plan: proceed Anesthesia type and monitoring: general LMA and standard monitoring Results Review: All pre-operative results and documents have been reviewed as part of the pre-operative evaluation. Informed Consent: The patient's anesthetic plan and its attendant risks and benefits were discussed with the patient/family/POA. Questions were solicited and answers provided to the satisfaction of the patient/family/POA.
[2021-12-14] MEDS: ceFAZolin 2 GM/D5W 50 ML 2 GM/50 ML BAG IVPB (08:12)
[2021-12-14] MEDS: LIDOCAINE HCL 2% GEL UROJET 10 ML PKG MUCOUS MEM (08:44)
--- NOTE | 2021-12-14 08:48 | W.PM.PROC2 ---
Procedure Note - Detailed Date of Procedure 12/14/21 Pre-op Diagnosis Recurrent bladder cancer Post-op Diagnosis Same Procedure Performed TURBT, bladder biopsy Surgeon Uziel Lopez MD Description of Procedure Patient was brought the op suite was prepped draped in routine sterile fashion while in dorsal lithotomy position after the uneventful induction of a general anesthetic. Twenty-four F resectoscope was placed in the bladder. There was an area in the left posterior lateral bladder wall that shows shaggy mucosa without donnie neoplasm. The remainder of the bladder mucosa is normal without hyperemia. I used a loop electrode to resect the small unusual appearing area left posterior lateral bladder wall and cauterized the base with a rollerball. He then has 2 implants of papillary urothelial carcinoma, 1 in each lateral lobe of his prostate near the verumontanum. These were resected in the base was likewise cauterized with the rollerball. Placed an 20F urethral catheter to drainage which I plan to take prior to discharge. Pathology Yes Complications No immediate complications Condition Stable Disposition PACU
--- NOTE | 2021-12-14 10:05 | SUR.PHASEII ---
PER DR CARREON PADRON CATHETER TO BE REMOVED AND PATIENT READY FOR DISCHARGE.
== END 2021-12-14 10:28 | disposition home or self-care (01) ==
PROVIDERS: PCP Internal Medicine; Visit Provider Urology
PROC: 0TBB8ZZ Excision of Bladder, Via Natural or Artificial Opening Endoscopic (ICD-10-PCS; CPT 52234; principal; 2021-12-14 08:30)
PROC: 0TBB8ZX Excision of Bladder, Via Natural or Artificial Opening Endoscopic, Diagnostic (ICD-10-PCS; CPT 52204; 2021-12-14 08:30)
DX: C67.2 Malignant neoplasm of lateral wall of bladder (principal); C61 Malignant neoplasm of prostate; C91.10 Chronic lymphocytic leukemia of B-cell type not having achieved remission; I10 Essential (primary) hypertension; E78.5 Hyperlipidemia, unspecified; E66.9 Obesity, unspecified; Z68.31 Body mass index [BMI] 31.0-31.9, adult; Z87.891 Personal history of nicotine dependence
CPT/HCPCS: 52234; 88305; 88342; 93005; A9270; J0690; J1100; J2370; J2405; J2704; J3010; J7120

== ENCOUNTER 2022-07-26 00:38 | Day surgery (SDC) | payer OTHER, SELFPAY ==
--- NOTE | 2022-07-18 14:58 | PC.NURSE ---
Report to the Outpatient Waiting Room, entrance under the green pavilion located off [facility], at time 1130 on date _07/26/22 . Planned Procedure Time: __1330 . Time changes happen often and if your time is changed the preop area will call you the afternoon before. - You and your visitor will be asked to self-screen and do not enter if you have any COVID symptoms. - Only one visitor is requested with a max of two and NO children visitors are allowed at this time. - The patient visitor may be requested to leave or wait in car when not with patient due to distancing restrictions. - A mask is optional within the hospital at this time. Patients may have clear liquids (water, carbonated beverages, clear teas, apple juice) until 3 hours prior to surgery with a maximum of 20 ounces. - No food from midnight until time of surgery - Infants may have breast milk until 4 hours before surgery, formula 6 hours prior to surgery. - Children will be allowed to drink immediately following surgery. If applicable, please bring a bottle or sippy cup to assist with drinking. Juice, water, soda, and popsicles are readily available. For infants on formula, please bring formula the day of surgery. Pacifiers are allowed. Take the following medications with a SIP of water the morning of surgery: ___METOPROLOL AND PREDNISONE DO NOT STOP ANY OF YOUR OTHER PRESCRIPTION MEDICATIONS PRIOR TO SURGERY ?EXCEPT THE FOLLOWING Medications to discontinue per physician ____ALL VITAMINS /SUPPLEMENTS 3 DAYS PRE OP_LAST DOSE 07/22/22 Please no make-up, nail korean, hairspray, perfume, deodorant, or body powder the day of surgery. No jewelry (including any body piercings) or valuables the day of surgery, leave them at home. Please take a shower or bath the night before, or the morning of, surgery with an antibacterial soap. Wear comfortable, loose fitting clothing. Children are encouraged to wear pajamas. - Jewelry must be removed prior to entering the operating room. Rings and piercings that are not removed may be cut off. - The hospital will not accept responsibility for valuables. - Please leave all valuables, including medications, at home the day of surgery. If you are going home after surgery, a licensed driver courier must drive you home. - NO public transportation without another adult if you receive anesthesia. - We recommend that an adult stay with you for 24 hours following discharge. - We also recommend that you do not drive, make important decision, drink alcoholic beverages, or take any drugs that were not prescribed by your health care provider for at least 24 hours after your discharge time. Follow any additional instructions given to you from your surgeon. If you or anyone in your household have experienced Covid symptoms in the past week, please notify your surgeon or the nurse liaison at the phone number below for possible testing. Telephone instructions given to _PATIENT and asked if any additional questions and then verbalized understanding. Patient advised to call surgeon office or pre surgery nurse liaison [phone] if any additional questions.
[2022-07-18 15:05] VITALS: BMI 32.3
--- NOTE | 2022-07-23 07:32 | PM.HPGS ---
History of Present Illness History of Present Illness Consent: Risks, benefits, and alternatives have been discussed and questions answered. Patient agrees to proceed with procedure. Chief complaint: hx of bladder cancer Narrative: Mark Domingo is a 76 year old male with a extensive history of recurrent urothelial neoplasm despite several resections, maintenance BCG and ongoing immunotherapy. Recent cystoscopy showed recurrence in the anterior and left lateral bladder wall. he presents today for TURBT and gemcitabine installation. He is aware the risk including, but not limited to, adverse cardiopulmonary events, recurrent neoplasm and hematuria Review of Systems Cardiovascular: Cardiovascular: Denies chest pain, Denies lightheadedness, Denies palpitations and Denies dyspnea Respiratory: Respiratory: Denies dyspnea Gastrointestinal: Gastrointestinal: Denies diarrhea, Denies nausea and Denies vomiting Genitourinary: Genitourinary: Denies hematuria and Denies dysuria Endocrine: Endocrine: Denies palpitations [facility] Past Medical History Medical History (Updated 06/13/22 @ 15:07 by Kevin Jones MD) Asbestos exposure Cancer of anterior wall of urinary bladder CLL (chronic lymphocytic leukemia) (2007) HTN (hypertension) Obesity CRISTY (obstructive sleep apnea) Triceps tendon rupture Surgical History Surgical History History of umbilical hernia repair Hx of cystoscopy Family History Family History Mother Cerebrovascular accident Father Family history of primary malignant neoplasm of liver Family history of liver disease Other Family history of hypercholesterolemia Hypertension Social History Social History Social History: Smoking packs per day: 1 Smoking cigarettes per day: 20.0 Years smoked: 24 Smoking pack-years: 24.00 Smoking status: Former smoker Tobacco type: cigarettes Second hand tobacco smoke exposure: No Smoking end date: 05/27/84 Alcohol intake: never Substance use: never Substance use type: does not use Living arrangements: with family Occupation/Education: retired Gender identity (if verbalized by the patient): Male Sexual Orientation (if Verbalized by the Patient): Straight or Heterosexual Spiritual care concerns: No Meds Home Medications and Allergies Home Medications Medication Instructions Recorded Confirmed Type docusate sodium 100 mg capsule 200 mg PO BID 09/07/19 07/18/22 History (Colace) tamsulosin 0.4 mg capsule 0.4 mg PO BID 09/07/19 07/18/22 History loratadine 10 mg tablet (Claritin) 10 mg PO PRN PRN Allergy Symptoms 07/20/21 07/18/22 History acetaminophen 500 mg capsule 500 mg PO Q6H PRN Pain 08/18/21 07/18/22 History finasteride 5 mg tablet 5 mg PO DAILY #90 tabs 02/12/22 07/18/22 Rx ferrous sulfate 65 mg PO DAILY 02/13/22 07/18/22 History mecobalamin (vitamin B12) 1,000 1,000 mcg PO DAILY 06/13/22 07/18/22 History mcg chewable tablet metoprolol succinate 100 mg 100 mg PO DAILY #30 tabs 07/06/22 07/18/22 Rx tablet,extended release 24 hr atorvastatin 20 mg tablet 20 mg PO QPM #90 tabs 07/08/22 07/18/22 Rx prednisone 5 mg tablets in a dose 5 mg PO DAILY 07/18/22 07/18/22 History pack Allergies Allergy/AdvReac Type Severity Reaction Status Date / Time cephalexin [From Keflex] Allergy Intermediate rash Verified 07/18/22 14:46 lisinopril AdvReac Intermediate Cough Verified 07/18/22 14:46 Exam Const: General: no acute distress Resp: Effort & Inspection: normal respiratory effort GI: Inspection: non-distended GI Palp: No abdominal tenderness and No Guarding due to palpation present (GI) Auscultation: normal bowel sounds Assessment and Plan Assessment and plan (1) Cancer of overlapping sites of bladde
[2022-07-26] VITALS (15 sets, daily range): BP systolic 112–158; BP diastolic 74–90; PULSE 61–81; RESP 12–20; TEMP 36.4–37.1; O2SAT 96–100
--- NOTE | 2022-07-26 06:43 | WPDHPUPDATE1 ---
History and Physical Update Update Date/Time: 07/26/22 06:43 History and Physical has been reviewed, including an updated exam of the patient. There are NO changes in the patient's condition. Risks, benefits, and alternatives have been discussed and questions answered. Patient agrees to proceed with procedure.
[2022-07-26] MEDS: LACTATED RINGERS 1,000 ML 30 ML IV CONT ×2 (11:25→16:26)
--- NOTE | 2022-07-26 12:37 | WPDANESEPPF ---
Anes - Initial Pre Proc Eval Procedure: Operation Date: 07/26/22 13:00 Proposed Procedures p Trans Urethral Resection Bladder Tumor with Gemcitabine - Uziel Lopez MD Date/Time: 07/26/22 12:37 Surgeon: Uziel Lopez MD Pre Op Diagnosis: hx of bladder cancer Patient Data Age: 76 Gender: M Height: 1.78 m Weight: 101.7 kg Last Vital Signs Temp 97.5 F L 07/26/22 10:57 Pulse 61 07/26/22 10:57 Resp 20 07/26/22 10:57 BP 158/77 H 07/26/22 10:57 Pulse Ox 100 07/26/22 10:57 O2 Del Method Room Air 07/26/22 10:57 Allergies Allergy/AdvReac Type Severity Reaction Status Date / Time cephalexin [From Keflex] Allergy Intermediate rash Verified 07/26/22 11:00 lisinopril AdvReac Intermediate Cough Verified 07/26/22 11:00 Home Medications Medication Instructions Recorded Confirmed Type docusate sodium 100 mg capsule 200 mg PO BID 09/07/19 07/26/22 History (Colace) tamsulosin 0.4 mg capsule 0.4 mg PO BID 09/07/19 07/26/22 History loratadine 10 mg tablet (Claritin) 10 mg PO PRN PRN Allergy Symptoms 07/20/21 07/26/22 History acetaminophen 500 mg capsule 500 mg PO Q6H PRN Pain 08/18/21 07/26/22 History finasteride 5 mg tablet 5 mg PO DAILY #90 tabs 02/12/22 07/26/22 Rx ferrous sulfate 65 mg PO DAILY 02/13/22 07/26/22 History mecobalamin (vitamin B12) 1,000 1,000 mcg PO DAILY 06/13/22 07/26/22 History mcg chewable tablet metoprolol succinate 100 mg 100 mg PO DAILY #30 tabs 07/06/22 07/26/22 Rx tablet,extended release 24 hr atorvastatin 20 mg tablet 20 mg PO QPM #90 tabs 07/08/22 07/26/22 Rx prednisone 5 mg tablets in a dose 5 mg PO DAILY 07/18/22 07/26/22 History pack Patient hx anesthesia problems: none Family hx anesthesia problems: none Results Review: All pre-operative results and documents have been reviewed as part of the pre-operative evaluation. [facility] Past Medical History Medical History (Updated 06/13/22 @ 15:07 by Kevin Jones MD) Asbestos exposure Cancer of anterior wall of urinary bladder CLL (chronic lymphocytic leukemia) (2007) HTN (hypertension) Obesity CRISTY (obstructive sleep apnea) Triceps tendon rupture Surgical History Surgical History History of umbilical hernia repair Hx of cystoscopy Family History Family History Mother Cerebrovascular accident Father Family history of primary malignant neoplasm of liver Family history of liver disease Other Family history of hypercholesterolemia Hypertension Social History Social History Social History: Smoking packs per day: 1 Smoking cigarettes per day: 20.0 Years smoked: 24 Smoking pack-years: 24.00 Smoking status: Former smoker Tobacco type: cigarettes Second hand tobacco smoke exposure: No Smoking end date: 05/27/84 Alcohol intake: never Substance use: never Substance use type: does not use Living arrangements: with family Occupation/Education: retired Gender identity (if verbalized by the patient): Male Sexual Orientation (if Verbalized by the Patient): Straight or Heterosexual Spiritual care concerns: No Anes - Eval Final PreProcedure Day of Procedure 07/26/22 12:37 Patient weight: obese Heart: regular rate and rhythm Lungs: clear to auscultation Airway: Mallampati scale class III (poor dentition; lower broken and rotten) Neurological: alert and oriented Last oral intake: >/= 8 hours ASA classification: III Emergent: no Anesthetic plan: proceed Anesthesia type and monitoring: general LMA and standard monitoring Results Review: All pre-operative results and documents have been reviewed as part of the pre-operative evaluation. Informed Consent: The patient's anesthetic plan and its attendant risks and benefits were discussed with
[2022-07-26] MEDS: levoFLOXacin 500 MG/D5W 100 ML 500 MG/100 ML BAG 100 MG IVPB (13:23)
--- NOTE | 2022-07-26 14:02 | W.PM.PROC2 ---
Procedure Note - Detailed Date of Procedure 07/26/22 Pre-op Diagnosis Recurrent bladder cancer Post-op Diagnosis Same Procedure Performed TURBT (medium) Surgeon Uziel Lopez MD Anesthesia General Description of Procedure patient is brought to the operative suite was prepped and draped in routine sterile fashion while in the dorsal lithotomy position after the uneventful induction of a general anesthetic. Cystoscopy is undertaken with a 24 F resectoscope. On this occasion he has recurrent neoplasm involving the anterior and left lateral bladder wall. I did aggressive resection extending beyond the limits of visible tumor. The remainder of the bladder was endoscopically normal. The base and periphery were cauterized with with a loop and rollerball electrode. This was done with preservation of the ureteral orifices. The prostatic urethra did not appear involved today. Resectoscope was removed an 18 F catheter was placed to drainage. Estimated Blood Loss 5 Drains Yes Pathology Yes Complications No immediate complications Condition Stable
--- NOTE | 2022-07-26 14:04 | W.PM.PROC2 ---
Procedure Note - Detailed Date of Procedure 07/26/22 Pre-op Diagnosis Recurrent bladder tumor Post-op Diagnosis Same Procedure Performed Gemcitabine installation into the bladder Surgeon Uziel Lopez MD Anesthesia Local Description of Procedure With the patient in the supine position, a 16F Santiago catheter is placed using sterile technique. Using a protective facemask, gown and double layer of gloves Gemcitabine 2gm in 100cc saline is administered through the catheter/into the bladder. The catheter is then plugged. Patient was instructed to lie supine x20min, then to roll both the left and right x20 min. each. Total dwell time will be 60 min., after which the bladder will be drained and catheter removed. Estimated Blood Loss 5
[2022-07-26] MEDS: SODIUM CHLORIDE 0.9% IV 23.7 ML, GEMCITABINE HCL 1,000 MG BLADDER ×2 (14:17→14:18)
[2022-07-26] MEDS: fentaNYL CITRATE INJ (*CRX) 100 MCG/2 ML VIAL 25 MCG IV PUSH ×3 (14:44→15:16)
--- NOTE | 2022-07-26 16:23 | SUR.PREOP ---
DR. CARREON AT BEDSIDE TO IRRIGATE CATHETER. URINE IS LIGHTENING UP. CATHETER PULLED.
== END 2022-07-26 17:00 | disposition home or self-care (01) ==
PROVIDERS: PCP Family Medicine Adolescent Medicine; Visit Provider Urology
PROC: 0TBB8ZZ Excision of Bladder, Via Natural or Artificial Opening Endoscopic (ICD-10-PCS; CPT 52235; principal; 2022-07-26 13:00)
DX: C67.8 Malignant neoplasm of overlapping sites of bladder (principal); I10 Essential (primary) hypertension; G47.33 Obstructive sleep apnea (adult) (pediatric); Z85.72 Personal history of non-Hodgkin lymphomas; Z87.891 Personal history of nicotine dependence; E66.9 Obesity, unspecified; Z68.32 Body mass index [BMI] 32.0-32.9, adult
CPT/HCPCS: 52235; 51720; 88305; 88342; J1100; J1956; J2405; J2704; J3010; J7120; J9201

== ENCOUNTER 2022-11-01 08:23 | Outpatient (CLI) | payer OTHER, SELFPAY ==
--- NOTE | ~2022-11-01 | CT_ITS ---
EXAMINATION: CT abdomen pelvis wo/w con DATE: 11/01/2022 09:06 INDICATION: Malignant neoplasm of bladder. Urinary frequency. TECHNIQUE: Computed tomography (CT) of the abdomen and pelvis was performed without and with intraven ous contrast using a total of 130 mL Omnipaque-350 intravenous contrast with a double-bolus technique for simultaneous opacification of the renal parenchyma and renal collecting system. Automated exposu re control and iterative reconstruction technique were employed. The dose-length product was 2632.75 mGy-cm. COMPARISON: CT abdomen and pelvis 03/05/2018 FINDINGS: The visualized portions of the lung bases demonstrate mild atelectasis. No pleural effusion. The hear t size is normal. No pericardial effusion. A calcified right hilar lymph node is consistent with old granulomatous disease. There are cysts in the liver measuring up to 13 mm. Calcifications in the sple en are consistent with old granulomatous disease. The gallbladder, pancreas, and adrenal glands are n ormal. There are cysts in the kidneys measuring up to 3.8 cm on the right. There is a 5.7 cm enhancin g mass in right kidney. There is a 1 mm stone in right kidney. There is mild right hydronephrosis and hydroureter. There is mild atrophy of left kidney. There is a 4.2 cm enhancing mass in left renal pe lvis. There is moderate left hydronephrosis and hydroureter. There is an enhancing mass in distal lef t ureter. The bladder is small with asymmetric wall thickening, left-sided diverticulum, and small wa ll calcification. The prostate is mildly enlarged. There may be changes of transurethral resection of the prostate. There are bilateral inguinal hernias containing fat. There is diverticulosis of the co keyshawn without evidence of diverticulitis. The appendix is normal. There is left para-aortic and left ex ternal iliac lymphadenopathy. For example, a left para-aortic node measures 16 x 14 mm. There is no f ree intraperitoneal fluid. There is mild chronic anterior wedging of T11 and T12 vertebral bodies. Th ere is mild thoracic spondylosis and moderate lumbar spondylosis. IMPRESSION: 1. Masses involving the left renal pelvis and left distal left ureter and left para-aortic and left e xternal iliac lymphadenopathy, consistent with metastatic urothelial carcinoma. 2. Right kidney mass, consistent with urothelial carcinoma or less likely renal cell carcinoma. 3. Asymmetric bladder wall thickening suspicious for recurrent urothelial carcinoma. 4. Bilateral hydronephrosis and hydroureter. Reviewed, dictated and finalized at location A. IMPRESSION: 1. Masses involving the left renal pelvis and left distal left ureter and left para-aortic and left external iliac lymphadenopathy, consistent with metastatic urothelial carcinoma. 2. Right kidney mass, consistent with urothelial carcinoma or less likely renal cell carcinoma. 3. Asymmetric bladder wall thickening suspicious for recurrent urothelial carci noma. 4. Bilateral hydronephrosis and hydroureter.
--- NOTE | ~2022-11-01 | CT_ITS ---
Clinical Indication: Bladder cancer CT Scan of the Chest with Contrast: Technique: Contiguous sections were acquired throughout the chest after intravenous administration of 130 cc of Omnipaque 350. Dose reduction technique was used on this scan by utilizing automated expos ure control and iterative reconstruction technique. The dose-length product (DLP) was 420.11 mGy-cm. Findings: There is no evidence of any significant mediastinal, hilar or axillary lymphadenopathy. No large cent ral pulmonary embolus. There is no evidence of aortic dissection or aneurysm. Coronary artery calcifi cations are present. There is no evidence of pleural or pericardial effusion. There is mild diffuse subpleural reticulation the lungs. There are several associated subcentimeter p eripheral pulmonary nodules, largest measuring 3 mm. Images through the upper abdomen reveal 1 cm hypodense probable hepatic cyst. Impression: Mild diffuse subpleural reticulation with several associated subcentimeter peripheral pulmonary nodul es. Findings are most suggestive of mild/early chronic interstitial disease. Given small peripheral pulmonary nodules in the setting of underlying malignancy, follow-up exam shou ld be considered to reassess for stability of the pulmonary nodules. Reviewed, dictated and finalized at [facility]. Impression: Mild diffuse subpleural reticulation with several associated subcentimeter francisco pheral pulmonary nodules. Findings are most suggestive of mild/early chronic in terstitial disease. Given small peripheral pulmonary nodules in the setting of underlying malignanc y, follow-up exam should be considered to reassess for stability of the pulmona ry nodules.
[2022-11-01 08:48] LABS: Estimated Glomerular Filt Rate 39
== END 2022-11-01 08:24 | disposition home or self-care (01) ==
PROVIDERS: PCP Family Medicine Adolescent Medicine; Visit Provider Urology
DX: Z85.51 Personal history of malignant neoplasm of bladder (principal); N13.30 Unspecified hydronephrosis
CPT/HCPCS: 71260; 74178; Q9967

== ENCOUNTER 2023-03-18 08:58 | Outpatient (CLI) | payer OTHER, SELFPAY ==
--- NOTE | ~2023-03-18 | CT_ITS ---
CT of the Abdomen and Pelvis: Indication: Urinary bladder cancer Technique: 2.5 mm axial scans were obtained through the abdomen and pelvis following intravenous adm inistration of 100 cc of Omnipaque 350. Dose reduction technique was used on this scan by utilizing a utomated exposure control and iterative reconstruction technique. The dose-length product (DLP) was 1 257.09 mGy-cm. COMPARISON: 11/01/2022 Findings: Scans through the lung bases are unremarkable. The liver, pancreas, gallbladder, and adrenal glands are within normal limits. Splenomegaly noted, si milar to prior exam. Exophytic solid right lower pole renal mass measures 5.2 x 4.0 cm (axial image 9 0). Moderate bilateral hydroureteronephrosis is similar to prior exam. Possible wall thickening at th e left renal pelvis noted. No evidence of aortic aneurysm. Mild periaortic lymphadenopathy is present , probably minimally improved from prior exam. No bowel obstruction or bowel wall thickening. There is no evidence to suggest acute appendicitis. Images through the pelvis were performed. Urinary bladder appears small, with somewhat bilobed appear ance. Possible wall thickening, especially on the left side of the urinary bladder. Prostate gland an d seminal vesicles are unremarkable. No ascites. Impression: 5.2 x 4.0 cm right lower pole renal mass is similar to prior exam, suspicious for renal cell carcinom a. Mass in the left renal pelvis on prior exam is probably significantly improved/decreased from prior e xam, with mild residual mass present. Moderate bilateral hydroureteronephrosis is similar to prior exam. Stable abnormal appearance of the urinary bladder. This could reflect postoperative and/or post thera py change. Residual/recurrent neoplasm is not excluded. Correlation with clinical and treatment histo ry is recommended. Mild periaortic lymphadenopathy is improved from prior exam, consistent with partial response to ther apy. Splenomegaly, similar to prior exam. Reviewed, dictated and finalized at location M. Impression: 5.2 x 4.0 cm right lower pole renal mass is similar to prior exam, suspicious f or renal cell carcinoma. Mass in the left renal pelvis on prior exam is probably significantly improved/ decreased from prior exam, with mild residual mass present. Moderate bilateral hydroureteronephrosis is similar to prior exam. Stable abnormal appearance of the urinary bladder. This could reflect postopera tive and/or post therapy change. Residual/recurrent neoplasm is not excluded. C orrelation with clinical and treatment history is recommended. Mild periaortic lymphadenopathy is improved from prior exam, consistent with pa rtial response to therapy. Splenomegaly, similar to prior exam.
[2023-03-18 09:26] LABS: Estimated Glomerular Filt Rate 35
== END 2023-03-18 08:59 | disposition home or self-care (01) ==
PROVIDERS: PCP Family Medicine Adolescent Medicine; Visit Provider Internal Medicine Hematology & Oncology
DX: C67.8 Malignant neoplasm of overlapping sites of bladder (principal)
CPT/HCPCS: 74177; Q9967

== ENCOUNTER 2023-06-25 08:24 | Outpatient (CLI) | payer OTHER, SELFPAY ==
--- NOTE | ~2023-06-25 | CT_ITS ---
EXAMINATION: CT abdomen pelvis w con DATE: 06/25/2023 09:00 INDICATION: Malignant neoplasm of urinary bladder; restaging TECHNIQUE: Computed tomography (CT) of the abdomen and pelvis was performed with 100 CC Omnipaque 350 intravenous contrast. Automated exposure control and iterative reconstruction technique were employe d. Exam dose: 1035.24 mGy-cm total exam DLP. COMPARISON: 03/18/2023 CT abdomen pelvis 03/05/2018 CT abdomen pelvis FINDINGS: Stable 3 mm anterior basilar right lower lobe pulmonary nodule since 03/18/2023 but not pre sent on 03/05/2018. Bilateral lower lobe dependent atelectasis. There are scattered posterior left lower lobe pleural calcifications, not present on 03/05/2018. There are multiple scattered hypoattenuating lesions of the liver, largest situated in the right lobe , measuring up to approximately 12 mm, likely a cyst. Multiple very small hypoattenuating lesions are too small to definitively characterize, most likely cysts. Splenomegaly appears stable since 03/18/2023. Previous 5 cm hypoattenuating exophytic mass at the anterior upper pole of the right kidney currently measures only approximately 1.7 cm maximal dimension. Approximately 4.2 x 6 cm exophytic medial right lower pole renal heterogeneously enhancing mass consi stent with renal cell carcinoma, mildly increased from approximately 4 x 5.8 cm since 03/18/2023. There is persistent prominent bilateral hydroureteronephrosis. There is suggestion of multiple possib le left ureteral soft tissue masses, likely additional urothelial malignant lesions. Consider retrogr aleks pyelography if clinically appropriate. The bladder is small and deformed, with irregular areas of soft tissue thickening. This may be postop erative scarring. Residual or recurrent urinary bladder neoplasm is not excluded. Prostate enlargement and calcifications. Normal caliber of the abdominal aorta. There is interval increased mild periaortic lymphadenopathy with nodes measuring up to 15.6 x 21 mm c urrently compared to 12 x 17.8 mm on 03/18/2023. Normal appendix. There are multiple diverticula of left and right colon; no CT evidence of diverticulitis. No bowel ob struction, bowel wall thickening, pneumatosis or intraperitoneal free air is detected. Bilateral fat-containing inguinal hernias. IMPRESSION: Since 03/18/2023 there is mild interval enlargement of the lower pole right renal carcin elbert, considerably diminished size of right upper pole renal cystic appearing mass, and mildly increas ed periaortic lymphadenopathy, in addition to suggestion of multiple additional urothelial probable m alignant lesions of the left ureter Reviewed, dictated and finalized at Location [facility] Reviewed, dictated and finalized at location L. S [employer] IMPRESSION: Since 03/18/2023 there is mild interval enlargement of the lower p ole right renal carcinoma, considerably diminished size of right upper pole nicholas al cystic appearing mass, and mildly increased periaortic lymphadenopathy, in a ddition to suggestion of multiple additional urothelial probable malignant lesi ons of the left ureter
== END 2023-06-25 08:25 | disposition home or self-care (01) ==
PROVIDERS: PCP Family Medicine Adolescent Medicine; Visit Provider Internal Medicine Hematology & Oncology
DX: C67.9 Malignant neoplasm of bladder, unspecified (principal)
CPT/HCPCS: 74177; Q9967

== ENCOUNTER 2023-07-03 12:20 | Outpatient (CLI) | payer OTHER, SELFPAY ==
--- NOTE | 2023-07-03 12:24 | ECG_ITS ---
Measurements Intervals [place] Rate: 86 P: 38 KS: 153 QRS: -23 QRSD: 142 T: 11 QT: 368 QTc: 440 Interpretive Statements SINUS RHYTHM RIGHT BUNDLE BRANCH BLOCK [120+ ms QRS DURATION, UPRIGHT V1, 40+ ms S IN I/aVL/V4/V5/V6] COMPARED TO ECG 12/08/2021 10:13:02 NO SIGNIFICANT CHANGES Electronically Signed On 07-03-2023 15:37:48 OUTSIDE INSTALLER APPRENTICE by Ana Ravi M.D.
== END 2023-07-03 12:21 | disposition home or self-care (01) ==
LOC: ANHSURGERY 12:23
PROVIDERS: PCP Family Medicine Adolescent Medicine; Visit Provider Urology
DX: Z01.818 Encounter for other preprocedural examination (principal); R93.1 Abnormal findings on diagnostic imaging of heart and coronary circulation; I45.10 Unspecified right bundle-branch block; I10 Essential (primary) hypertension
CPT/HCPCS: 93005

== ENCOUNTER 2023-07-11 00:22 | Day surgery (SDC) | payer OTHER, SELFPAY ==
--- NOTE | 2023-07-01 10:34 | PC.NURSE ---
Report to the Outpatient Waiting Room, entrance under the green pavilion located off [facility], at time __0900 on date _07/11/23 . Planned Procedure Time: __1100 . Time changes happen often and if your time is changed the preop area will call you the afternoon before. - You and your visitor will be asked to self-screen and do not enter if you have any COVID symptoms. - A mask is optional within the hospital at this time. Patients may have clear liquids (water, carbonated beverages, clear teas, apple juice) until 3 hours prior to surgery( 8:00 AM ) with a maximum of 20 ounces. - No food from midnight until time of surgery - Infants may have breast milk until 4 hours before surgery, infant formula 6 hours prior to surgery. - Children will be allowed to drink immediately following surgery. If applicable, please bring a bottle or sippy cup to assist with drinking. Juice, water, soda, and popsicles are readily available. For infants on formula, please bring formula the day of surgery. Pacifiers are allowed. Take the following medications with a SIP of water the morning of surgery: _NONE DO NOT STOP ANY OF YOUR OTHER PRESCRIPTION MEDICATIONS PRIOR TO SURGERY ?EXCEPT THE FOLLOWING Medications to discontinue per physician ___PT STATES HOLD ASPIRIN 7 DAYS PRE OP PER DR CARREON. LAST DOSE 07/03/23.ALL VITAMINS 3 DAYS PRE OP.LAST DOSE 07/07/23 Please no make-up, nail romanian, hairspray, perfume, deodorant, or body powder the day of surgery. No jewelry (including any body piercings) or valuables the day of surgery, leave them at home. Please take a shower or bath the night before, or the morning of, surgery with an antibacterial soap. Wear comfortable, loose fitting clothing. Children are encouraged to wear pajamas. - Jewelry must be removed prior to entering the operating room. Rings and piercings that are not removed may be cut off. - The hospital will not accept responsibility for valuables. - Please leave all valuables, including medications, at home the day of surgery. If you are going home after surgery, a licensed class a regional truck driver must drive you home. - NO public transportation without another adult if you receive anesthesia. - We recommend that an adult stay with you for 24 hours following discharge. - We also recommend that you do not drive, make important decision, drink alcoholic beverages, or take any drugs that were not prescribed by your health care provider for at least 24 hours after your discharge time. Follow any additional instructions given to you from your surgeon. If you or anyone in your household have experienced Covid symptoms in the past week, please notify your surgeon or the nurse liaison at the phone number below for possible testing. Telephone instructions given to __PATIENT and asked if any additional questions and then verbalized understanding. Patient advised to call surgeon office or pre surgery nurse liaison [phone] if any additional questions.
[2023-07-01 10:56] VITALS: BMI 30.8
--- NOTE | 2023-07-10 09:46 | WPDANESEPPF ---
Anes - Initial Pre Proc Eval Procedure: Operation Date: 07/11/23 11:00 Proposed Procedures p Trans Urethral Resection Bladder Tumor - Uziel Lopez MD Date/Time: 07/10/23 09:46 Surgeon: Uziel Lopez MD Pre Op Diagnosis: Bladder Cancer Patient Data Age: 77 Gender: M Height: 1.78 m Weight: 97.55 kg Allergies Allergy/AdvReac Type Severity Reaction Status Date / Time cephalexin [From Keflex] Allergy Intermediate rash Verified 07/16/23 13:04 lisinopril AdvReac Intermediate Cough Verified 07/16/23 13:04 Home Medications Medication Instructions Recorded Confirmed Type docusate sodium 100 mg capsule 200 mg PO PRN PRN Constipation 09/07/19 07/16/23 History (Colace) tamsulosin 0.4 mg capsule 0.4 mg PO BID 09/07/19 07/16/23 History loratadine 10 mg tablet (Claritin) 10 mg PO PRN PRN Allergy Symptoms 07/20/21 07/16/23 History acetaminophen 500 mg capsule 500 mg PO Q6H PRN Pain 08/18/21 07/16/23 History finasteride 5 mg tablet 5 mg PO DAILY #90 tabs 02/12/22 07/16/23 Rx aspirin 325 mg tablet 325 mg PO DAILY 02/19/23 07/16/23 History ferrous sulfate 65 mg PO BID 02/19/23 07/16/23 History atorvastatin 20 mg tablet 20 mg PO QPM #90 tabs 04/21/23 07/16/23 Rx cyanocobalamin (vitamin B-12) 1,000 mcg PO DAILY 07/01/23 07/16/23 History 1,000 mcg tablet hydrocodone 5 mg-acetaminophen 325 1 - 2 tablet PO Q6H PRN pain #20 07/11/23 07/16/23 Rx mg tablet tabs valsartan 320 mg tablet 320 mg PO DAILY #90 tabs 07/15/23 07/16/23 Rx Patient hx anesthesia problems: none Family hx anesthesia problems: none Results Review: All pre-operative results and documents have been reviewed as part of the pre-operative evaluation. [facility] Past Medical History Medical History (Updated 02/19/23 @ 06:29 by Kevin Jones MD) Asbestos exposure Cancer of anterior wall of urinary bladder CLL (chronic lymphocytic leukemia) (2008) HTN (hypertension) Obesity CRISTY (obstructive sleep apnea) Triceps tendon rupture Surgical History Surgical History History of umbilical hernia repair Hx of cystoscopy Family History Family History Mother Cerebrovascular accident Father Family history of primary malignant neoplasm of liver Family history of liver disease Other Family history of hypercholesterolemia Hypertension Social History Social History (Updated 02/19/23 @ 13:04 by Jarod Durant [facility]) Social History: Smoking packs per day: 1 Smoking cigarettes per day: 20.0 Years smoked: 24 Smoking pack-years: 24.00 Smoking status: Former smoker Tobacco type: cigarettes Second hand tobacco smoke exposure: No Smoking end date: 05/27/84 Alcohol intake: never Substance use: never Substance use type: does not use Lack of Transportation: No Lack of Food: Never True Current Housing: I Have Housing Concerned About Future Housing: No Difficulty Paying Gas/Electric Bills: No Difficulty Paying for Meds: No Currently Unemployed: No Education: Trade/Vocational Certificate Difficulty w/ Childcare or Family Care: No Living arrangements: with family Occupation/Education: retired Gender identity (if verbalized by the patient): Male Sexual Orientation (if Verbalized by the Patient): Straight or Heterosexual Spiritual care concerns: No Anes - Eval Final PreProcedure Day of Procedure 07/10/23 09:46 Patient weight: obese Heart: regular rate and rhythm Lungs: clear to auscultation Airway: Mallampati scale class II Neurological: alert and oriented Last oral intake: >/= 8 hours ASA classification: III Emergent: no Anesthetic plan: proceed Anesthesia type and monitoring: general LMA and standard monitoring Results Review: All pre-operative results and documents have been reviewed as part of the pre-operative evaluation. Infor
[2023-07-11] VITALS (7 sets, daily range): BP systolic 106–174; BP diastolic 56–78; PULSE 88–99; RESP 16–22; TEMP 36.1–37.7; O2SAT 94–98
--- NOTE | 2023-07-11 06:13 | WPDHPUPDATE1 ---
History and Physical Update Update Date/Time: 07/11/23 06:13 History and Physical has been reviewed, including an updated exam of the patient. There are NO changes in the patient's condition. Risks, benefits, and alternatives have been discussed and questions answered. Patient agrees to proceed with procedure.
[2023-07-11] MEDS: LACTATED RINGERS 1,000 ML 30 ML IV CONT (09:20)
--- NOTE | 2023-07-11 10:20 | P.OP_ITS ---
Procedure Note - Detailed Date of Procedure 07/11/23 Pre-op Diagnosis Bladder Cancer Post-op Diagnosis Same Procedure Performed TURBT (medium, 3 cm) Surgeon Uziel Lopez MD Anesthesia General Description of Procedure Patient is brought to the operative suite where he was prepped draped in routine sterile fashion while in dorsal lithotomy position after the uneventful induction of a general LMA anesthetic. Twenty-four F resectoscope was placed in his bladder. There was no urethral stricture and no involvement of the prostatic urethra by urothelial carcinoma. There is, in the anterior bladder neck, an area approximately 2-3 cm suggestive of recurrent neoplasm. I resected this site and cauterized the base with electric cautery (roller ball). Remainder the bladder mucosa was without apparent neoplasm. Point the bladder was emptied the resectoscope was removed. I opted against gemcitabine inst allation since it seemed to have had little effect past. Drains No Packing No Pathology None sent Complications No immediate complications Condition Stable
[2023-07-11] MEDS: fentaNYL CITRATE INJ (*CRX) 100 MCG/2 ML VIAL 25 MCG IV PUSH ×2 (10:36→10:45)
[2023-07-11] MEDS: oxyCODONE HCL (*CRX) 5 MG TAB IR PO (11:25)
== END 2023-07-11 12:05 | disposition home or self-care (01) ==
PROVIDERS: PCP Family Medicine Adolescent Medicine; Visit Provider Urology
PROC: 0TBB8ZZ Excision of Bladder, Via Natural or Artificial Opening Endoscopic (ICD-10-PCS; CPT 52500; principal; 2023-07-11 11:00)
DX: C67.8 Malignant neoplasm of overlapping sites of bladder (principal); C91.10 Chronic lymphocytic leukemia of B-cell type not having achieved remission; I10 Essential (primary) hypertension; E78.00 Pure hypercholesterolemia, unspecified
CPT/HCPCS: 52500; 88305; 93005; A9270; J2371; J2405; J2704; J3010; J7120

== ENCOUNTER 2023-12-18 14:50 | Outpatient (CLI) | payer OTHER, SELFPAY ==
--- NOTE | ~2023-12-18 | CT_ITS ---
EXAMINATION: CT abdomen pelvis wo con DATE: 12/18/2023 15:26 INDICATION: Malignant neoplasm of the bladder TECHNIQUE: Computed tomography (CT) of the abdomen and pelvis was performed without intravenous contr ast. The dose-length product was 804.36 mGy-cm. Automated exposure control and iterative reconstructi on technique were employed. COMPARISON: None. FINDINGS: There is dependent atelectasis. Heart size normal. No significant pleural or pericardial ef fusion. There are nonobstructing bilateral renal stones. No significant change to solid 6 cm right re nal mass located inferior medially in the right kidney. There is moderate-severe bilateral hydronephr osis. There are nonobstructing bilateral renal stones. There is left renal atrophy. There is diffuse irregular thickening of the bladder wall with surrounding perivesical fatty infiltration, suspicious for bladder carcinoma with possible local extension. The liver, spleen, pancreas, adrenal glands are unremarkable. Nonobstructive bowel pattern. Normal appendix. IMPRESSION: 1. Thickened heterogeneous appearing irregular bladder wall, consistent with known malignancy. Modera te surrounding perivesical fatty infiltration, suspicious for local extension of tumor. 2: Stable appearance to solid right renal mass inferior medially measuring up to 6 cm, consistent wit h adenocarcinoma until proven otherwise. 3: Moderate-severe bilateral hydroureteronephrosis. 4: Nonobstructing bilateral nephrolithiasis. Reviewed, dictated and finalized at location B. IMPRESSION: 1. Thickened heterogeneous appearing irregular bladder wall, consistent with kn own malignancy. Moderate surrounding perivesical fatty infiltration, suspicious for local extension of tumor. 2: Stable appearance to solid right renal mass inferior medially measuring up t o 6 cm, consistent with adenocarcinoma until proven otherwise. 3: Moderate-severe bilateral hydroureteronephrosis. 4: Nonobstructing bilateral nephrolithiasis.
[2023-12-18 14:39] LABS: Estimated Glomerular Filt Rate 26
== END 2023-12-18 14:51 | disposition home or self-care (01) ==
PROVIDERS: PCP Family Medicine Adolescent Medicine; Visit Provider Internal Medicine Hematology & Oncology
DX: C67.8 Malignant neoplasm of overlapping sites of bladder (principal); N13.30 Unspecified hydronephrosis; N20.0 Calculus of kidney
CPT/HCPCS: 74176

== ENCOUNTER 2023-12-24 11:30 | Outpatient (RCR) | payer OTHER, SELFPAY ==
--- NOTE | 2021-08-25 08:25 | PC.NURSE ---
Talked to Rob JO she will order home anti-emetic and emla cream.
[2021-08-29 10:58] VITALS: BP 152/76; PULSE 96; RESP 20; TEMP 36.7; O2SAT 98
[2021-08-29 11:06] LABS: Basophils Absolute Auto 0.1 K/mm3 (0.0-0.1); Basophils Percent Auto 0.5 % (0.2-1.2); Eosinophils Absolute Auto 0.5 K/mm3 (0-0.3); Eosinophils Percent Auto 1.9 % (0-4.4); Hematocrit 45.8 % (42.0-52.0); Hemoglobin 14.3 g/dL (14.0-18.0); Immature Granulocyte Absolute 0.11 K/mm3 (0.00-0.031); Immature Granulocyte Percent A 0.4 % (0-0.5); Lymphocytes Absolute Auto 19.02 K/mm3 (0.9-3.2); Lymphocytes Percent Auto 69.5 % (18.3-44.2); Mean Corpuscular HGB Conc 31.2 g/dl (32-36); Mean Corpuscular Hemoglobin 29.4 pg (26-34); Mean Platelet Volume 8.7 fl (7.4-10.4); Monocytes Absolute Auto 1.5 K/mm3 (0.1-0.6); Monocytes Percent Auto 5.5 % (2.6-8.5); Neutrophils Absolute Auto 6.1 K/mm3 (1.3-6.7); Neutrophils Percent Auto 22.2 % (45.5-73.1); Platelet Count Result 111 k/mm3 (150-375); Red Blood Count 4.87 M/mm3 (4.6-6.20); White Blood Count 27.4 K/mm3 (4.5-10.0)
[2021-08-29 11:12] LABS: Atypical Lymphocytes Present; Platelet Estimate Decreased (Adequate); Smudge Cells PRESENT
[2021-08-29 11:14] LABS: Blood Urea Nitrogen 21 mg/dL (8-26); Carbon Dioxide 26 mmol/L (22-30); Chloride 104 mmol/L (98-109); Estimated Glomerular Filt Rate > 60; Glucose 148 mg/dL (70-105); Potassium 3.9 mmol/L (3.5-4.9); Sodium 140 mmol/L (138-146)
[2021-08-29] MEDS: PEMBROLIZUMAB 200 MG in SODIUM CHLORIDE 0.9% IV 100 ML 216 MG IVPB (11:29)
[2021-08-29] MEDS: HEPARIN SODIUM LOCK FLUSH 500 UNITS/5 ML SYRINGE IV PUSH (12:08)
[2021-08-29 14:40] LABS: Alanine Aminotransferase 24 U/L (4-50); Albumin Level 4.2 g/dL (3.5-5.1); Alkaline Phosphatase 91 U/L (38-126); Anion Gap 7 mmol/L (8-16); Aspartate Amino Transferase 25 U/L (17-59); Bilirubin,Total 0.5 mg/dL (0.2-1.3); Blood Urea Nitrogen 22 mg/dL (9-20); Calcium 8.8 mg/dL (8.4-10.2); Carbon Dioxide 26 mmol/L (22-30); Chloride 105 mmol/L (98-107); Estimated Glomerular Filt Rate > 60; Glucose 145 mg/dL (65-110); Potassium 3.8 mmol/L (3.4-5.0); Sodium 138 mmol/L (137-145)
[2021-09-19 08:31] LABS: Hemoglobin 14.1 g/dL (14.0-18.0); Mean Corpuscular HGB Conc 30.7 g/dl (32-36); Mean Corpuscular Hemoglobin 28.7 pg (26-34); Mean Corpuscular Volume 93.5 fl (80-100); Mean Platelet Volume 8.6 fl (7.4-10.4); Platelet Count Result 115 k/mm3 (150-375); Red Blood Count 4.92 M/mm3 (4.6-6.20); Red Cell Distribution Width 13.5 % (11.5-14.5)
[2021-09-19 08:39] LABS: Monocytes Absolute Manual 0.25 K/mm3 (0.1-0.90); Monocytes Percent Manual 1 % (3-9); Neutrophils Percent Manual 41 % (46-73); Platelet Estimate Decreased (Adequate); Total Cells Counted 100
[2021-09-19 08:40] LABS: Atypical Lymphocytes Present
[2021-09-19 08:41] LABS: Blood Urea Nitrogen 18 mg/dL (8-26); Carbon Dioxide 24 mmol/L (22-30); Chloride 104 mmol/L (98-109); Estimated Glomerular Filt Rate > 60; Glucose 117 mg/dL (70-105); Ionized Calcium (POC) 1.17 mmol/L (1.11-1.31); Potassium 3.9 mmol/L (3.5-4.9); Sodium 140 mmol/L (138-146)
[2021-09-19 09:05] VITALS: BP 154/86; PULSE 93; RESP 20; TEMP 36.6; O2SAT 100
[2021-09-19] MEDS: PEMBROLIZUMAB 200 MG in SODIUM CHLORIDE 0.9% IV 100 ML 216 MG IVPB (09:22)
[2021-09-19] MEDS: HEPARIN SODIUM LOCK FLUSH 500 UNITS/5 ML SYRINGE IV PUSH (10:02)
[2021-09-19 10:58] LABS: Alanine Aminotransferase 24 U/L (4-50); Albumin Level 4.2 g/dL (3.5-5.1); Alkaline Phosphatase 90 U/L (38-126); Anion Gap 9 mmol/L (8-16); Aspartate Amino Transferase 25 U/L (17-59); Bilirubin,Total 0.3 mg/dL (0.2-1.3); Blood Urea Nitrogen 18 mg/dL (9-20); Calcium 8.6 mg/dL (8.4-10.2); Carbon Dioxide 23 mmol/L (22-30); Chloride 106 mmol/L (98-107); Estimated Glomerular Filt Rate > 60; Glucose 118 mg/dL (65-110); Potassium 3.9 mmol/L (3.4-5.0); Sodium 138 mmol/L (137-145)
[2021-10-10 10:45] LABS: Basophils Absolute Auto 0.1 K/mm3 (0.0-0.1); Basophils Percent Auto 0.3 % (0.2-1.2); Eosinophils Absolute Auto 0.3 K/mm3 (0-0.3); Hematocrit 44.7 % (42.0-52.0); Hemoglobin 14.3 g/dL (14.0-18.0); Immature Granulocyte Absolute 0.08 K/mm3 (0.00-0.031); Immature Granulocyte Percent A 0.3 % (0-0.5); Lymphocytes Absolute Auto 17.74 K/mm3 (0.9-3.2); Lymphocytes Percent Auto 73.9 % (18.3-44.2); Mean Corpuscular Hemoglobin 28.9 pg (26-34); Mean Corpuscular Volume 90.3 fl (80-100); Mean Platelet Volume 8.7 fl (7.4-10.4); Monocytes Absolute Auto 0.7 K/mm3 (0.1-0.6); Neutrophils Absolute Auto 5.1 K/mm3 (1.3-6.7); Neutrophils Percent Auto 21.5 % (45.5-73.1); Platelet Count Result 140 k/mm3 (150-375); Red Blood Count 4.95 M/mm3 (4.6-6.20); Red Cell Distribution Width 13.6 % (11.5-14.5)
[2021-10-10 10:49] LABS: Blood Urea Nitrogen 19 mg/dL (8-26); Carbon Dioxide 25 mmol/L (22-30); Chloride 105 mmol/L (98-109); Estimated Glomerular Filt Rate 59; Glucose 105 mg/dL (70-105); Potassium 3.9 mmol/L (3.5-4.9); Sodium 141 mmol/L (138-146)
[2021-10-10 10:51] LABS: Atypical Lymphocytes Present
[2021-10-10 11:21] VITALS: BP 146/74; PULSE 78; RESP 20; TEMP 36.6; O2SAT 100
[2021-10-10] MEDS: PEMBROLIZUMAB 200 MG in SODIUM CHLORIDE 0.9% IV 100 ML 216 MG IVPB (11:36)
[2021-10-10 12:11] VITALS: BP 127/71; PULSE 69; RESP 16; O2SAT 100
[2021-10-10] MEDS: HEPARIN SODIUM LOCK FLUSH 500 UNITS/5 ML SYRINGE IV PUSH (12:17)
[2021-10-10 12:37] LABS: Alanine Aminotransferase 21 U/L (6-50); Albumin Level 4.4 g/dL (3.5-5.1); Alkaline Phosphatase 82 U/L (38-126); Anion Gap 5 mmol/L (8-16); Aspartate Amino Transferase 25 U/L (17-59); Bilirubin,Total 0.4 mg/dL (0.2-1.3); Blood Urea Nitrogen 19 mg/dL (9-20); Calcium 8.9 mg/dL (8.4-10.2); Carbon Dioxide 26 mmol/L (22-30); Chloride 107 mmol/L (98-107); Estimated Glomerular Filt Rate > 60; Glucose 104 mg/dL (65-110); Sodium 138 mmol/L (137-145)
[2021-10-31 08:50] LABS: Basophils Absolute Auto 0.1 K/mm3 (0.0-0.1); Basophils Percent Auto 0.3 % (0.2-1.2); Eosinophils Absolute Auto 0.2 K/mm3 (0-0.3); Eosinophils Percent Auto 0.9 % (0-4.4); Hematocrit 43.5 % (42.0-52.0); Hemoglobin 13.9 g/dL (14.0-18.0); Immature Granulocyte Absolute 0.06 K/mm3 (0.00-0.031); Immature Granulocyte Percent A 0.3 % (0-0.5); Lymphocytes Absolute Auto 17.06 K/mm3 (0.9-3.2); Lymphocytes Percent Auto 73.1 % (18.3-44.2); Mean Corpuscular Hemoglobin 28.7 pg (26-34); Mean Corpuscular Volume 89.9 fl (80-100); Mean Platelet Volume 8.3 fl (7.4-10.4); Monocytes Absolute Auto 1.1 K/mm3 (0.1-0.6); Monocytes Percent Auto 4.8 % (2.6-8.5); Neutrophils Absolute Auto 4.8 K/mm3 (1.3-6.7); Neutrophils Percent Auto 20.6 % (45.5-73.1); Platelet Count Result 115 k/mm3 (150-375); Red Blood Count 4.84 M/mm3 (4.6-6.20); Red Cell Distribution Width 13.6 % (11.5-14.5); White Blood Count 23.3 K/mm3 (4.5-10.0)
[2021-10-31 08:58] LABS: Atypical Lymphocytes Present; Platelet Estimate Decreased (Adequate)
[2021-10-31 09:05] LABS: Blood Urea Nitrogen 18 mg/dL (8-26); Carbon Dioxide 25 mmol/L (22-30); Chloride 105 mmol/L (98-109); Estimated Glomerular Filt Rate 54; Glucose 155 mg/dL (70-105); Ionized Calcium (POC) 1.21 mmol/L (1.11-1.31); Potassium 3.9 mmol/L (3.5-4.9); Sodium 141 mmol/L (138-146)
[2021-10-31 09:08] VITALS: BP 141/73; PULSE 86; RESP 16; TEMP 36.7; O2SAT 100
[2021-10-31] MEDS: PEMBROLIZUMAB 200 MG in SODIUM CHLORIDE 0.9% IV 100 ML 216 MG IVPB (09:23)
[2021-10-31 10:05] VITALS: BP 133/68
[2021-10-31] MEDS: HEPARIN SODIUM LOCK FLUSH 500 UNITS/5 ML SYRINGE IV PUSH (10:08)
[2021-10-31 10:11] LABS: Alanine Aminotransferase 21 U/L (6-50); Albumin Level 4.2 g/dL (3.5-5.1); Alkaline Phosphatase 84 U/L (38-126); Anion Gap 7 mmol/L (8-16); Aspartate Amino Transferase 20 U/L (17-59); Bilirubin,Total 0.4 mg/dL (0.2-1.3); Blood Urea Nitrogen 18 mg/dL (9-20); Calcium 8.7 mg/dL (8.4-10.2); Carbon Dioxide 25 mmol/L (22-30); Chloride 108 mmol/L (98-107); Estimated Glomerular Filt Rate 59; Glucose 155 mg/dL (65-110); Sodium 140 mmol/L (137-145)
[2021-11-21 08:28] LABS: Basophils Absolute Auto 0.1 K/mm3 (0.0-0.1); Basophils Percent Auto 0.4 % (0.2-1.2); Eosinophils Absolute Auto 0.4 K/mm3 (0-0.3); Eosinophils Percent Auto 1.5 % (0-4.4); Hematocrit 43.4 % (42.0-52.0); Hemoglobin 13.8 g/dL (14.0-18.0); Immature Granulocyte Absolute 0.07 K/mm3 (0.00-0.031); Immature Granulocyte Percent A 0.3 % (0-0.5); Lymphocytes Absolute Auto 18.34 K/mm3 (0.9-3.2); Lymphocytes Percent Auto 74.2 % (18.3-44.2); Mean Corpuscular HGB Conc 31.8 g/dl (32-36); Mean Corpuscular Hemoglobin 28.4 pg (26-34); Mean Corpuscular Volume 89.3 fl (80-100); Mean Platelet Volume 8.6 fl (7.4-10.4); Monocytes Absolute Auto 0.7 K/mm3 (0.1-0.6); Monocytes Percent Auto 2.8 % (2.6-8.5); Neutrophils Absolute Auto 5.1 K/mm3 (1.3-6.7); Neutrophils Percent Auto 20.8 % (45.5-73.1); Nucleated Red Blood Cells Perc 0.1 % (0.0-0.2); Platelet Count Result 120 k/mm3 (150-375); Red Blood Count 4.86 M/mm3 (4.6-6.20); Red Cell Distribution Width 13.7 % (11.5-14.5); White Blood Count 24.7 K/mm3 (4.5-10.0)
[2021-11-21 08:32] LABS: Blood Urea Nitrogen 21 mg/dL (8-26); Carbon Dioxide 27 mmol/L (22-30); Chloride 105 mmol/L (98-109); Estimated Glomerular Filt Rate 46; Glucose 119 mg/dL (70-105); Ionized Calcium (POC) 1.18 mmol/L (1.11-1.31); Potassium 4.1 mmol/L (3.5-4.9); Sodium 141 mmol/L (138-146)
[2021-11-21 08:33] LABS: Atypical Lymphocytes Present; Platelet Estimate Decreased (Adequate)
[2021-11-21 08:57] VITALS: BP 156/86; PULSE 86; RESP 18; TEMP 36.4; O2SAT 100
[2021-11-21] MEDS: PEMBROLIZUMAB 200 MG in SODIUM CHLORIDE 0.9% IV 100 ML 216 MG IVPB (09:20)
[2021-11-21] MEDS: HEPARIN SODIUM LOCK FLUSH 500 UNITS/5 ML SYRINGE IV PUSH (09:54)
[2021-11-21 10:23] LABS: Alanine Aminotransferase 18 U/L (6-50); Albumin Level 4.2 g/dL (3.5-5.1); Alkaline Phosphatase 80 U/L (38-126); Anion Gap 6 mmol/L (8-16); Aspartate Amino Transferase 19 U/L (17-59); Bilirubin,Total 0.3 mg/dL (0.2-1.3); Blood Urea Nitrogen 21 mg/dL (9-20); Calcium 8.9 mg/dL (8.4-10.2); Carbon Dioxide 26 mmol/L (22-30); Chloride 107 mmol/L (98-107); Estimated Glomerular Filt Rate 54; Glucose 117 mg/dL (65-110); Potassium 4.1 mmol/L (3.4-5.0); Sodium 139 mmol/L (137-145)
[2021-12-12 08:36] LABS: Basophils Absolute Auto 0.1 K/mm3 (0.0-0.1); Basophils Percent Auto 0.3 % (0.2-1.2); Eosinophils Absolute Auto 0.4 K/mm3 (0-0.3); Eosinophils Percent Auto 1.5 % (0-4.4); Hematocrit 42.2 % (42.0-52.0); Hemoglobin 13.5 g/dL (14.0-18.0); Immature Granulocyte Absolute 0.11 K/mm3 (0.00-0.031); Immature Granulocyte Percent A 0.4 % (0-0.5); Lymphocytes Absolute Auto 19.91 K/mm3 (0.9-3.2); Lymphocytes Percent Auto 74.3 % (18.3-44.2); Mean Corpuscular Hemoglobin 28.6 pg (26-34); Mean Corpuscular Volume 89.4 fl (80-100); Mean Platelet Volume 8.6 fl (7.4-10.4); Monocytes Absolute Auto 0.7 K/mm3 (0.1-0.6); Monocytes Percent Auto 2.6 % (2.6-8.5); Neutrophils Absolute Auto 5.6 K/mm3 (1.3-6.7); Neutrophils Percent Auto 20.9 % (45.5-73.1); Platelet Count Result 124 k/mm3 (150-375); Red Blood Count 4.72 M/mm3 (4.6-6.20); Red Cell Distribution Width 13.8 % (11.5-14.5); White Blood Count 26.8 K/mm3 (4.5-10.0)
[2021-12-12 08:39] VITALS: BP 154/73; PULSE 78; TEMP 36.1; O2SAT 100
[2021-12-12 08:40] LABS: Blood Urea Nitrogen 25 mg/dL (8-26); Carbon Dioxide 23 mmol/L (22-30); Chloride 106 mmol/L (98-109); Estimated Glomerular Filt Rate 46; Glucose 99 mg/dL (70-105); Ionized Calcium (POC) 1.13 mmol/L (1.11-1.31); Potassium 4.4 mmol/L (3.5-4.9); Sodium 139 mmol/L (138-146)
[2021-12-12] MEDS: PEMBROLIZUMAB 200 MG in SODIUM CHLORIDE 0.9% IV 100 ML 216 MG IVPB (08:59)
[2021-12-12 09:31] VITALS: BP 146/85; PULSE 67; RESP 18; O2SAT 100
[2021-12-12] MEDS: HEPARIN SODIUM LOCK FLUSH 500 UNITS/5 ML SYRINGE IV PUSH (09:36)
[2021-12-12 10:00] LABS: Alanine Aminotransferase 17 U/L (6-50); Albumin Level 4.3 g/dL (3.5-5.1); Alkaline Phosphatase 77 U/L (38-126); Anion Gap 8 mmol/L (8-16); Aspartate Amino Transferase 18 U/L (17-59); Bilirubin,Total 0.5 mg/dL (0.2-1.3); Blood Urea Nitrogen 26 mg/dL (9-20); Calcium 8.5 mg/dL (8.4-10.2); Carbon Dioxide 23 mmol/L (22-30); Chloride 107 mmol/L (98-107); Estimated Glomerular Filt Rate 49; Glucose 103 mg/dL (65-110); Potassium 4.5 mmol/L (3.4-5.0); Sodium 138 mmol/L (137-145)
[2022-01-02 11:16] LABS: Basophils Absolute Auto 0.1 K/mm3 (0.0-0.1); Basophils Percent Auto 0.4 % (0.2-1.2); Eosinophils Absolute Auto 0.5 K/mm3 (0-0.3); Eosinophils Percent Auto 1.6 % (0-4.4); Hematocrit 40.2 % (42.0-52.0); Hemoglobin 12.9 g/dL (14.0-18.0); Immature Granulocyte Percent A 0.3 % (0-0.5); Lymphocytes Absolute Auto 21.76 K/mm3 (0.9-3.2); Lymphocytes Percent Auto 72.8 % (18.3-44.2); Mean Corpuscular HGB Conc 32.1 g/dl (32-36); Mean Corpuscular Hemoglobin 28.7 pg (26-34); Mean Corpuscular Volume 89.3 fl (80-100); Mean Platelet Volume 8.2 fl (7.4-10.4); Monocytes Absolute Auto 0.8 K/mm3 (0.1-0.6); Monocytes Percent Auto 2.7 % (2.6-8.5); Neutrophils Absolute Auto 6.6 K/mm3 (1.3-6.7); Neutrophils Percent Auto 22.2 % (45.5-73.1); Platelet Count Result 156 k/mm3 (150-375); Red Cell Distribution Width 13.9 % (11.5-14.5); White Blood Count 29.9 K/mm3 (4.5-10.0)
[2022-01-02 11:20] LABS: Blood Urea Nitrogen 30 mg/dL (8-26); Carbon Dioxide 24 mmol/L (22-30); Chloride 105 mmol/L (98-109); Estimated Glomerular Filt Rate 46; Glucose 109 mg/dL (70-105); Ionized Calcium (POC) 1.23 mmol/L (1.11-1.31); Potassium 4.9 mmol/L (3.5-4.9); Sodium 139 mmol/L (138-146)
[2022-01-02 11:58] VITALS: BP 137/71; PULSE 77; RESP 18; TEMP 36.2; O2SAT 99
[2022-01-02] MEDS: PEMBROLIZUMAB 200 MG in SODIUM CHLORIDE 0.9% IV 100 ML 216 MG IVPB (12:16)
[2022-01-02 12:23] LABS: Alanine Aminotransferase 14 U/L (6-50); Albumin Level 4.1 g/dL (3.5-5.1); Alkaline Phosphatase 90 U/L (38-126); Anion Gap 8 mmol/L (8-16); Aspartate Amino Transferase 17 U/L (17-59); Bilirubin,Total 0.4 mg/dL (0.2-1.3); Blood Urea Nitrogen 32 mg/dL (9-20); Calcium 9.3 mg/dL (8.4-10.2); Carbon Dioxide 26 mmol/L (22-30); Chloride 102 mmol/L (98-107); Estimated Glomerular Filt Rate 46; Glucose 113 mg/dL (65-110); Potassium 4.9 mmol/L (3.4-5.0); Sodium 136 mmol/L (137-145)
[2022-01-02] MEDS: HEPARIN SODIUM LOCK FLUSH 500 UNITS/5 ML SYRINGE IV PUSH (12:49)
[2022-01-23 09:40] LABS: Basophils Absolute Auto 0.1 K/mm3 (0.0-0.1); Basophils Percent Auto 0.3 % (0.2-1.2); Eosinophils Absolute Auto 0.6 K/mm3 (0-0.3); Hematocrit 37.4 % (42.0-52.0); Hemoglobin 11.9 g/dL (14.0-18.0); Immature Granulocyte Absolute 0.12 K/mm3 (0.00-0.031); Immature Granulocyte Percent A 0.4 % (0-0.5); Lymphocytes Absolute Auto 19.06 K/mm3 (0.9-3.2); Lymphocytes Percent Auto 70.3 % (18.3-44.2); Mean Corpuscular HGB Conc 31.8 g/dl (32-36); Mean Corpuscular Hemoglobin 28.3 pg (26-34); Monocytes Absolute Auto 0.8 K/mm3 (0.1-0.6); Monocytes Percent Auto 2.9 % (2.6-8.5); Neutrophils Absolute Auto 6.5 K/mm3 (1.3-6.7); Neutrophils Percent Auto 24.1 % (45.5-73.1); Platelet Count Result 167 k/mm3 (150-375); Red Cell Distribution Width 13.9 % (11.5-14.5); White Blood Count 27.1 K/mm3 (4.5-10.0)
[2022-01-23 09:44] LABS: Blood Urea Nitrogen 22 mg/dL (8-26); Carbon Dioxide 23 mmol/L (22-30); Chloride 105 mmol/L (98-109); Estimated Glomerular Filt Rate 49; Glucose 112 mg/dL (70-105); Ionized Calcium (POC) 1.21 mmol/L (1.11-1.31); Sodium 139 mmol/L (138-146)
[2022-01-23 09:48] VITALS: BP 131/68; PULSE 83; TEMP 36.6; O2SAT 100
[2022-01-23] MEDS: PEMBROLIZUMAB 200 MG in SODIUM CHLORIDE 0.9% IV 100 ML 216 MG IVPB (10:03)
[2022-01-23] MEDS: HEPARIN SODIUM LOCK FLUSH 500 UNITS/5 ML SYRINGE IV PUSH (10:42)
[2022-01-23 12:32] LABS: Alanine Aminotransferase 13 U/L (6-50); Albumin Level 3.9 g/dL (3.5-5.1); Alkaline Phosphatase 90 U/L (38-126); Anion Gap 4 mmol/L (8-16); Aspartate Amino Transferase 15 U/L (17-59); Bilirubin,Total 0.4 mg/dL (0.2-1.3); Blood Urea Nitrogen 22 mg/dL (9-20); Calcium 8.7 mg/dL (8.4-10.2); Carbon Dioxide 24 mmol/L (22-30); Chloride 105 mmol/L (98-107); Estimated Glomerular Filt Rate 49; Glucose 114 mg/dL (65-110); Potassium 4.1 mmol/L (3.4-5.0); Sodium 133 mmol/L (137-145)
[2022-02-13 08:52] LABS: Basophils Absolute Auto 0.1 K/mm3 (0.0-0.1); Basophils Percent Auto 0.5 % (0.2-1.2); Eosinophils Absolute Auto 0.5 K/mm3 (0-0.3); Eosinophils Percent Auto 1.9 % (0-4.4); Hematocrit 38.8 % (42.0-52.0); Immature Granulocyte Absolute 0.15 K/mm3 (0.00-0.031); Immature Granulocyte Percent A 0.6 % (0-0.5); Lymphocytes Absolute Auto 18.09 K/mm3 (0.9-3.2); Lymphocytes Percent Auto 67.2 % (18.3-44.2); Mean Corpuscular HGB Conc 30.9 g/dl (32-36); Mean Corpuscular Hemoglobin 27.6 pg (26-34); Mean Corpuscular Volume 89.4 fl (80-100); Mean Platelet Volume 8.4 fl (7.4-10.4); Monocytes Absolute Auto 0.7 K/mm3 (0.1-0.6); Monocytes Percent Auto 2.7 % (2.6-8.5); Neutrophils Absolute Auto 7.3 K/mm3 (1.3-6.7); Neutrophils Percent Auto 27.1 % (45.5-73.1); Platelet Count Result 173 k/mm3 (150-375); Red Blood Count 4.34 M/mm3 (4.6-6.20); Red Cell Distribution Width 13.8 % (11.5-14.5); White Blood Count 26.9 K/mm3 (4.5-10.0)
[2022-02-13 09:00] LABS: Blood Urea Nitrogen 21 mg/dL (8-26); Carbon Dioxide 22 mmol/L (22-30); Chloride 103 mmol/L (98-109); Estimated Glomerular Filt Rate 42; Glucose 127 mg/dL (70-105); Potassium 4.1 mmol/L (3.5-4.9); Sodium 140 mmol/L (138-146)
[2022-02-13 09:34] VITALS: BP 130/66; PULSE 89; RESP 18; TEMP 36.2; O2SAT 98
[2022-02-13] MEDS: PEMBROLIZUMAB 200 MG in SODIUM CHLORIDE 0.9% IV 100 ML 216 MG IVPB (09:50)
[2022-02-13] MEDS: HEPARIN SODIUM LOCK FLUSH 500 UNITS/5 ML SYRINGE IV PUSH (10:23)
[2022-02-13 10:29] LABS: Alanine Aminotransferase 17 U/L (6-50); Alkaline Phosphatase 93 U/L (38-126); Anion Gap 10 mmol/L (8-16); Aspartate Amino Transferase 23 U/L (17-59); Bilirubin,Total 0.4 mg/dL (0.2-1.3); Blood Urea Nitrogen 22 mg/dL (9-20); Calcium 8.7 mg/dL (8.4-10.2); Carbon Dioxide 23 mmol/L (22-30); Chloride 105 mmol/L (98-107); Estimated Glomerular Filt Rate 49; Glucose 126 mg/dL (65-110); Potassium 4.2 mmol/L (3.4-5.0); Sodium 138 mmol/L (137-145)
[2022-03-06 09:12] LABS: Basophils Absolute Auto 0.1 K/mm3 (0.0-0.1); Basophils Percent Auto 0.3 % (0.2-1.2); Eosinophils Absolute Auto 0.6 K/mm3 (0-0.3); Eosinophils Percent Auto 2.1 % (0-4.4); Hemoglobin 11.7 g/dL (14.0-18.0); Immature Granulocyte Absolute 0.12 K/mm3 (0.00-0.031); Immature Granulocyte Percent A 0.4 % (0-0.5); Lymphocytes Absolute Auto 19.51 K/mm3 (0.9-3.2); Lymphocytes Percent Auto 69.7 % (18.3-44.2); Mean Corpuscular HGB Conc 30.8 g/dl (32-36); Mean Corpuscular Hemoglobin 27.5 pg (26-34); Mean Corpuscular Volume 89.2 fl (80-100); Mean Platelet Volume 8.2 fl (7.4-10.4); Monocytes Absolute Auto 0.7 K/mm3 (0.1-0.6); Monocytes Percent Auto 2.6 % (2.6-8.5); Neutrophils Absolute Auto 6.9 K/mm3 (1.3-6.7); Neutrophils Percent Auto 24.9 % (45.5-73.1); Platelet Count Result 163 k/mm3 (150-375); Red Blood Count 4.26 M/mm3 (4.6-6.20); Red Cell Distribution Width 14.1 % (11.5-14.5)
[2022-03-06 09:15] LABS: Blood Urea Nitrogen 21 mg/dL (8-26); Carbon Dioxide 27 mmol/L (22-30); Chloride 101 mmol/L (98-109); Estimated Glomerular Filt Rate 46; Glucose 121 mg/dL (70-105); Ionized Calcium (POC) 1.27 mmol/L (1.11-1.31); Potassium 4.3 mmol/L (3.5-4.9); Sodium 139 mmol/L (138-146)
[2022-03-06 09:18] VITALS: BP 115/66; PULSE 82; RESP 18; TEMP 36.6; O2SAT 100
[2022-03-06] MEDS: PEMBROLIZUMAB 200 MG in SODIUM CHLORIDE 0.9% IV 100 ML 216 MG IVPB (09:35)
[2022-03-06] MEDS: HEPARIN SODIUM LOCK FLUSH 500 UNITS/5 ML SYRINGE IV PUSH (10:09)
[2022-03-06 12:06] LABS: Alanine Aminotransferase 16 U/L (6-50); Albumin Level 4.1 g/dL (3.5-5.1); Alkaline Phosphatase 93 U/L (38-126); Anion Gap 9 mmol/L (8-16); Aspartate Amino Transferase 20 U/L (17-59); Bilirubin,Total 0.5 mg/dL (0.2-1.3); Blood Urea Nitrogen 22 mg/dL (9-20); Calcium 9.2 mg/dL (8.4-10.2); Carbon Dioxide 25 mmol/L (22-30); Chloride 102 mmol/L (98-107); Estimated Glomerular Filt Rate 49; Glucose 118 mg/dL (65-110); Potassium 4.3 mmol/L (3.4-5.0); Sodium 136 mmol/L (137-145)
[2022-03-27 10:02] LABS: Basophils Absolute Auto 0.1 K/mm3 (0.0-0.1); Basophils Percent Auto 0.4 % (0.2-1.2); Eosinophils Absolute Auto 0.5 K/mm3 (0-0.3); Eosinophils Percent Auto 1.7 % (0-4.4); Hematocrit 39.5 % (42.0-52.0); Hemoglobin 12.4 g/dL (14.0-18.0); Immature Granulocyte Percent A 0.4 % (0-0.5); Lymphocytes Absolute Auto 18.06 K/mm3 (0.9-3.2); Lymphocytes Percent Auto 67.1 % (18.3-44.2); Mean Corpuscular HGB Conc 31.4 g/dl (32-36); Mean Corpuscular Hemoglobin 27.6 pg (26-34); Mean Corpuscular Volume 87.8 fl (80-100); Mean Platelet Volume 8.1 fl (7.4-10.4); Monocytes Absolute Auto 0.7 K/mm3 (0.1-0.6); Monocytes Percent Auto 2.5 % (2.6-8.5); Neutrophils Absolute Auto 7.5 K/mm3 (1.3-6.7); Neutrophils Percent Auto 27.9 % (45.5-73.1); Platelet Count Result 161 k/mm3 (150-375); Red Cell Distribution Width 14.1 % (11.5-14.5); White Blood Count 26.9 K/mm3 (4.5-10.0)
[2022-03-27 10:05] LABS: Blood Urea Nitrogen 18 mg/dL (8-26); Carbon Dioxide 23 mmol/L (22-30); Chloride 104 mmol/L (98-109); Estimated Glomerular Filt Rate 46; Glucose 120 mg/dL (70-105); Ionized Calcium (POC) 1.19 mmol/L (1.11-1.31); Potassium 4.4 mmol/L (3.5-4.9); Sodium 139 mmol/L (138-146)
[2022-03-27 10:07] LABS: Atypical Lymphocytes Present; Platelet Estimate Adequate (Adequate); Schistocytes None Seen (NORMAL)
[2022-03-27 10:42] VITALS: BP 139/76; PULSE 90; TEMP 36.2; O2SAT 100
[2022-03-27 10:54] LABS: Iron 35 ug/dL (49-181); Percent Iron Saturation 12 % (20-50)
[2022-03-27 10:56] LABS: Alanine Aminotransferase 15 U/L (6-50); Albumin Level 4.3 g/dL (3.5-5.1); Alkaline Phosphatase 97 U/L (38-126); Anion Gap 10 mmol/L (8-16); Aspartate Amino Transferase 20 U/L (17-59); Bilirubin,Total 0.5 mg/dL (0.2-1.3); Blood Urea Nitrogen 18 mg/dL (9-20); Calcium 8.4 mg/dL (8.4-10.2); Carbon Dioxide 23 mmol/L (22-30); Chloride 105 mmol/L (98-107); Estimated Glomerular Filt Rate 49; Glucose 117 mg/dL (65-110); Potassium 4.3 mmol/L (3.4-5.0); Sodium 138 mmol/L (137-145)
[2022-03-27] MEDS: PEMBROLIZUMAB 200 MG in SODIUM CHLORIDE 0.9% IV 100 ML 216 MG IVPB (10:56)
[2022-03-27] MEDS: HEPARIN SODIUM LOCK FLUSH 500 UNITS/5 ML SYRINGE IV PUSH (11:38)
[2022-04-17 09:38] LABS: Basophils Absolute Auto 0.1 K/mm3 (0.0-0.1); Basophils Percent Auto 0.4 % (0.2-1.2); Eosinophils Absolute Auto 0.7 K/mm3 (0-0.3); Eosinophils Percent Auto 2.7 % (0-4.4); Hematocrit 38.5 % (42.0-52.0); Immature Granulocyte Absolute 0.13 K/mm3 (0.00-0.031); Immature Granulocyte Percent A 0.5 % (0-0.5); Lymphocytes Absolute Auto 19.09 K/mm3 (0.9-3.2); Lymphocytes Percent Auto 71.9 % (18.3-44.2); Mean Corpuscular HGB Conc 31.2 g/dl (32-36); Mean Corpuscular Hemoglobin 26.8 pg (26-34); Mean Corpuscular Volume 86.1 fl (80-100); Mean Platelet Volume 7.6 fl (7.4-10.4); Monocytes Absolute Auto 0.6 K/mm3 (0.1-0.6); Monocytes Percent Auto 2.4 % (2.6-8.5); Neutrophils Absolute Auto 5.9 K/mm3 (1.3-6.7); Neutrophils Percent Auto 22.1 % (45.5-73.1); Platelet Count Result 147 k/mm3 (150-375); Red Blood Count 4.47 M/mm3 (4.6-6.20); Red Cell Distribution Width 14.5 % (11.5-14.5); White Blood Count 26.6 K/mm3 (4.5-10.0)
[2022-04-17 09:42] LABS: Blood Urea Nitrogen 23 mg/dL (8-26); Carbon Dioxide 26 mmol/L (22-30); Chloride 103 mmol/L (98-109); Estimated Glomerular Filt Rate 46; Glucose 111 mg/dL (70-105); Ionized Calcium (POC) 1.22 mmol/L (1.11-1.31); Potassium 4.3 mmol/L (3.5-4.9); Sodium 141 mmol/L (138-146)
[2022-04-17 09:47] VITALS: BP 133/70; PULSE 79; TEMP 36.3; O2SAT 100
[2022-04-17] MEDS: PEMBROLIZUMAB 200 MG in SODIUM CHLORIDE 0.9% IV 100 ML 216 MG IVPB (10:09)
[2022-04-17 10:17] LABS: Alanine Aminotransferase 16 U/L (6-50); Albumin Level 4.1 g/dL (3.5-5.1); Alkaline Phosphatase 106 U/L (38-126); Anion Gap 8 mmol/L (8-16); Aspartate Amino Transferase 22 U/L (17-59); Bilirubin,Total 0.4 mg/dL (0.2-1.3); Blood Urea Nitrogen 24 mg/dL (9-20); Calcium 8.8 mg/dL (8.4-10.2); Carbon Dioxide 24 mmol/L (22-30); Chloride 105 mmol/L (98-107); Estimated Glomerular Filt Rate 46; Glucose 111 mg/dL (65-110); Potassium 4.4 mmol/L (3.4-5.0); Sodium 137 mmol/L (137-145)
[2022-04-17] MEDS: HEPARIN SODIUM LOCK FLUSH 500 UNITS/5 ML SYRINGE IV PUSH (10:42)
[2022-05-08 08:40] LABS: Basophils Absolute Auto 0.1 K/mm3 (0.0-0.1); Basophils Percent Auto 0.4 % (0.2-1.2); Eosinophils Absolute Auto 0.6 K/mm3 (0-0.3); Eosinophils Percent Auto 2.2 % (0-4.4); Hematocrit 39.5 % (42.0-52.0); Hemoglobin 12.3 g/dL (14.0-18.0); Immature Granulocyte Absolute 0.12 K/mm3 (0.00-0.031); Immature Granulocyte Percent A 0.4 % (0-0.5); Lymphocytes Absolute Auto 19.57 K/mm3 (0.9-3.2); Lymphocytes Percent Auto 69.6 % (18.3-44.2); Mean Corpuscular HGB Conc 31.1 g/dl (32-36); Mean Corpuscular Hemoglobin 26.5 pg (26-34); Mean Corpuscular Volume 85.1 fl (80-100); Mean Platelet Volume 8.3 fl (7.4-10.4); Monocytes Absolute Auto 0.7 K/mm3 (0.1-0.6); Monocytes Percent Auto 2.6 % (2.6-8.5); Neutrophils Percent Auto 24.8 % (45.5-73.1); Platelet Count Result 159 k/mm3 (150-375); Red Blood Count 4.64 M/mm3 (4.6-6.20); Red Cell Distribution Width 14.7 % (11.5-14.5); White Blood Count 28.1 K/mm3 (4.5-10.0)
[2022-05-08 08:44] LABS: Blood Urea Nitrogen 19 mg/dL (8-26); Carbon Dioxide 25 mmol/L (22-30); Chloride 105 mmol/L (98-109); Estimated Glomerular Filt Rate 46; Glucose 107 mg/dL (70-105); Ionized Calcium (POC) 1.17 mmol/L (1.11-1.31); Potassium 4.1 mmol/L (3.5-4.9); Sodium 139 mmol/L (138-146)
[2022-05-08 08:45] LABS: Atypical Lymphocytes Present; Platelet Estimate Adequate (Adequate); Schistocytes None Seen (NORMAL)
[2022-05-08 09:08] VITALS: BP 140/69; PULSE 84; TEMP 36; O2SAT 99
[2022-05-08] MEDS: PEMBROLIZUMAB 200 MG in SODIUM CHLORIDE 0.9% IV 100 ML 216 MG IVPB (09:23)
[2022-05-08] MEDS: HEPARIN SODIUM LOCK FLUSH 500 UNITS/5 ML SYRINGE IV PUSH (09:55)
[2022-05-08 10:12] LABS: Alanine Aminotransferase 27 U/L (6-50); Albumin Level 4.2 g/dL (3.5-5.1); Alkaline Phosphatase 95 U/L (38-126); Anion Gap 8 mmol/L (8-16); Aspartate Amino Transferase 24 U/L (17-59); Bilirubin,Total 0.5 mg/dL (0.2-1.3); Blood Urea Nitrogen 19 mg/dL (9-20); Calcium 8.5 mg/dL (8.4-10.2); Carbon Dioxide 25 mmol/L (22-30); Chloride 106 mmol/L (98-107); Estimated Glomerular Filt Rate 49; Glucose 110 mg/dL (65-110); Potassium 4.1 mmol/L (3.4-5.0); Sodium 139 mmol/L (137-145)
[2022-05-30 14:05] LABS: Basophils Absolute Auto 0.1 K/mm3 (0.0-0.1); Basophils Percent Auto 0.5 % (0.2-1.2); Eosinophils Absolute Auto 0.7 K/mm3 (0-0.3); Eosinophils Percent Auto 2.5 % (0-4.4); Hematocrit 40.8 % (42.0-52.0); Hemoglobin 12.6 g/dL (14.0-18.0); Immature Granulocyte Absolute 0.15 K/mm3 (0.00-0.031); Immature Granulocyte Percent A 0.5 % (0-0.5); Lymphocytes Absolute Auto 18.86 K/mm3 (0.9-3.2); Lymphocytes Percent Auto 69.1 % (18.3-44.2); Mean Corpuscular HGB Conc 30.9 g/dl (32-36); Mean Corpuscular Hemoglobin 26.5 pg (26-34); Mean Corpuscular Volume 85.7 fl (80-100); Mean Platelet Volume 8.2 fl (7.4-10.4); Monocytes Absolute Auto 0.8 K/mm3 (0.1-0.6); Neutrophils Absolute Auto 6.6 K/mm3 (1.3-6.7); Neutrophils Percent Auto 24.4 % (45.5-73.1); Platelet Count Result 158 k/mm3 (150-375); Red Blood Count 4.76 M/mm3 (4.6-6.20); Red Cell Distribution Width 14.9 % (11.5-14.5); White Blood Count 27.3 K/mm3 (4.5-10.0)
[2022-05-30 14:08] LABS: Blood Urea Nitrogen 24 mg/dL (8-26); Carbon Dioxide 25 mmol/L (22-30); Chloride 105 mmol/L (98-109); Estimated Glomerular Filt Rate 49; Glucose 100 mg/dL (70-105); Ionized Calcium (POC) 1.14 mmol/L (1.11-1.31); Potassium 4.5 mmol/L (3.5-4.9); Sodium 139 mmol/L (138-146)
[2022-05-30 14:09] VITALS: BP 150/75; PULSE 85; TEMP 36.6; O2SAT 100
[2022-05-30] MEDS: PEMBROLIZUMAB 200 MG in SODIUM CHLORIDE 0.9% IV 100 ML 216 MG IVPB (14:29)
[2022-05-30 14:57] LABS: Alanine Aminotransferase 19 U/L (6-50); Albumin Level 4.1 g/dL (3.5-5.1); Alkaline Phosphatase 95 U/L (38-126); Anion Gap 7 mmol/L (8-16); Aspartate Amino Transferase 27 U/L (17-59); Bilirubin,Total 0.5 mg/dL (0.2-1.3); Blood Urea Nitrogen 22 mg/dL (9-20); Calcium 8.8 mg/dL (8.4-10.2); Carbon Dioxide 25 mmol/L (22-30); Chloride 106 mmol/L (98-107); Estimated Glomerular Filt Rate 49; Glucose 102 mg/dL (65-110); Potassium 4.6 mmol/L (3.4-5.0); Sodium 138 mmol/L (137-145)
[2022-05-30] MEDS: HEPARIN SODIUM LOCK FLUSH 500 UNITS/5 ML SYRINGE IV PUSH (15:02)
[2022-06-19 08:51] LABS: Basophils Absolute Auto 0.2 K/mm3 (0.0-0.1); Basophils Percent Auto 0.4 % (0.2-1.2); Eosinophils Absolute Auto 0.2 K/mm3 (0-0.3); Eosinophils Percent Auto 0.5 % (0-4.4); Hematocrit 40.7 % (42.0-52.0); Hemoglobin 12.7 g/dL (14.0-18.0); Immature Granulocyte Absolute 0.38 K/mm3 (0.00-0.031); Immature Granulocyte Percent A 0.8 % (0-0.5); Lymphocytes Absolute Auto 34.61 K/mm3 (0.9-3.2); Lymphocytes Percent Auto 74.4 % (18.3-44.2); Mean Corpuscular HGB Conc 31.2 g/dl (32-36); Mean Corpuscular Hemoglobin 26.7 pg (26-34); Mean Corpuscular Volume 85.5 fl (80-100); Mean Platelet Volume 8.5 fl (7.4-10.4); Monocytes Absolute Auto 1.2 K/mm3 (0.1-0.6); Monocytes Percent Auto 2.5 % (2.6-8.5); Neutrophils Percent Auto 21.4 % (45.5-73.1); Platelet Count Result 170 k/mm3 (150-375); Red Blood Count 4.76 M/mm3 (4.6-6.20); Red Cell Distribution Width 15.7 % (11.5-14.5); White Blood Count 46.5 K/mm3 (4.5-10.0)
[2022-06-19 09:00] LABS: Blood Urea Nitrogen 27 mg/dL (8-26); Carbon Dioxide 25 mmol/L (22-30); Chloride 103 mmol/L (98-109); Estimated Glomerular Filt Rate 46; Glucose 94 mg/dL (70-105); Ionized Calcium (POC) 1.21 mmol/L (1.11-1.31); Potassium 3.8 mmol/L (3.5-4.9); Sodium 139 mmol/L (138-146)
[2022-06-19 09:30] VITALS: BP 159/82; PULSE 57; TEMP 36.6; O2SAT 100
[2022-06-19] MEDS: PEMBROLIZUMAB 200 MG in SODIUM CHLORIDE 0.9% IV 100 ML 216 MG IVPB (09:47)
[2022-06-19] MEDS: HEPARIN SODIUM LOCK FLUSH 500 UNITS/5 ML SYRINGE IV PUSH (10:28)
[2022-06-19 12:23] LABS: Alanine Aminotransferase 22 U/L (6-50); Albumin Level 4.1 g/dL (3.5-5.1); Alkaline Phosphatase 94 U/L (38-126); Anion Gap 6 mmol/L (8-16); Aspartate Amino Transferase 16 U/L (17-59); Bilirubin,Total 0.5 mg/dL (0.2-1.3); Blood Urea Nitrogen 27 mg/dL (9-20); Calcium 9.2 mg/dL (8.4-10.2); Carbon Dioxide 27 mmol/L (22-30); Chloride 103 mmol/L (98-107); Estimated Glomerular Filt Rate 46; Glucose 96 mg/dL (65-110); Potassium 3.8 mmol/L (3.4-5.0); Sodium 136 mmol/L (137-145)
[2022-06-19 12:54] LABS: Hepatitis B Surface Antigen Negative (Negative)
[2022-06-21 12:34] LABS: NIL 0.03 IU/mL; Quantiferon TB Plus, 1T NEGATIVE (NEGATIVE); TB1-NIL 0.01 IU/mL; TB2-NIL 0.01 IU/mL
[2022-12-03 08:51] LABS: Basophils Absolute Auto 0.1 K/mm3 (0.0-0.1); Basophils Percent Auto 0.4 % (0.2-1.2); Eosinophils Absolute Auto 0.6 K/mm3 (0-0.3); Eosinophils Percent Auto 2.2 % (0-4.4); Hemoglobin 12.4 g/dL (14.0-18.0); Immature Granulocyte Absolute 0.13 K/mm3 (0.00-0.031); Immature Granulocyte Percent A 0.5 % (0-0.5); Lymphocytes Absolute Auto 19.11 K/mm3 (0.9-3.2); Lymphocytes Percent Auto 70.7 % (18.3-44.2); Mean Corpuscular HGB Conc 31.8 g/dl (32-36); Mean Corpuscular Hemoglobin 28.4 pg (26-34); Mean Corpuscular Volume 89.4 fl (80-100); Mean Platelet Volume 7.9 fl (7.4-10.4); Monocytes Absolute Auto 0.9 K/mm3 (0.1-0.6); Monocytes Percent Auto 3.2 % (2.6-8.5); Neutrophils Absolute Auto 6.2 K/mm3 (1.3-6.7); Platelet Count Result 113 k/mm3 (150-375); Red Blood Count 4.36 M/mm3 (4.6-6.20); Red Cell Distribution Width 14.2 % (11.5-14.5)
[2022-12-03] MEDS: ALTEPLASE 2 MG VIAL (CATHFLO) IV PUSH (08:51)
[2022-12-03 08:55] LABS: Blood Urea Nitrogen 29 mg/dL (8-26); Carbon Dioxide 26 mmol/L (22-30); Chloride 103 mmol/L (98-109); Estimated Glomerular Filt Rate 37; Glucose 123 mg/dL (70-105); Ionized Calcium (POC) 1.23 mmol/L (1.11-1.31); Potassium 3.9 mmol/L (3.5-4.9); Sodium 141 mmol/L (138-146)
[2022-12-03 09:17] VITALS: BP 132/71; PULSE 61; TEMP 36.8; O2SAT 97
[2022-12-03 09:47] LABS: Alanine Aminotransferase 21 U/L (6-50); Anion Gap 7 mmol/L (8-16); Aspartate Amino Transferase 23 U/L (17-59); Bilirubin,Total 0.7 mg/dL (0.2-1.3); Blood Urea Nitrogen 31 mg/dL (9-20); Calcium 9.3 mg/dL (8.4-10.2); Carbon Dioxide 28 mmol/L (22-30); Chloride 104 mmol/L (98-107); Estimated CRCL calculation 40 ml/min; Estimated Glomerular Filt Rate 39; Glucose 124 mg/dL (65-110); Sodium 139 mmol/L (137-145)
[2022-12-03 09:48] LABS: Albumin Level 4.1 g/dL (3.5-5.1); Alkaline Phosphatase 91 U/L (38-126)
[2022-12-03] MEDS: OLANZapine DISPERTAB 5 MG PO (09:50)
[2022-12-03] MEDS: PALONOSETRON HCL 0.25 MG/5 ML VIAL IV PUSH (09:50)
[2022-12-03] MEDS: FOSAPREPITANT DIMEGLUMINE 150 MG in SODIUM CHLORIDE 0.9% IV 150 ML 300 MG IVPB (09:51)
[2022-12-03 11:43] VITALS: BP 138/67
[2022-12-03] MEDS: HEPARIN SODIUM LOCK FLUSH 500 UNITS/5 ML SYRINGE IV PUSH (11:50)
[2022-12-10 10:35] LABS: Basophils Percent Auto 0.2 % (0.2-1.2); Eosinophils Absolute Auto 0.1 K/mm3 (0-0.3); Eosinophils Percent Auto 0.6 % (0-4.4); Hematocrit 35.7 % (42.0-52.0); Hemoglobin 11.3 g/dL (14.0-18.0); Immature Granulocyte Absolute 0.02 K/mm3 (0.00-0.031); Immature Granulocyte Percent A 0.1 % (0-0.5); Lymphocytes Absolute Auto 13.62 K/mm3 (0.9-3.2); Lymphocytes Percent Auto 77.3 % (18.3-44.2); Mean Corpuscular HGB Conc 31.7 g/dl (32-36); Mean Corpuscular Hemoglobin 28.3 pg (26-34); Mean Corpuscular Volume 89.5 fl (80-100); Mean Platelet Volume 8.4 fl (7.4-10.4); Monocytes Absolute Auto 0.8 K/mm3 (0.1-0.6); Monocytes Percent Auto 4.3 % (2.6-8.5); Neutrophils Absolute Auto 3.1 K/mm3 (1.3-6.7); Neutrophils Percent Auto 17.5 % (45.5-73.1); Platelet Count Result 71 k/mm3 (150-375); Red Blood Count 3.99 M/mm3 (4.6-6.20); Red Cell Distribution Width 13.9 % (11.5-14.5); White Blood Count 17.6 K/mm3 (4.5-10.0)
[2022-12-10 10:39] LABS: Blood Urea Nitrogen 23 mg/dL (8-26); Carbon Dioxide 27 mmol/L (22-30); Chloride 102 mmol/L (98-109); Estimated CRCL calculation 43 ml/min; Estimated Glomerular Filt Rate 42; Glucose 113 mg/dL (70-105); Potassium 4.3 mmol/L (3.5-4.9); Sodium 139 mmol/L (138-146)
[2022-12-10 12:34] LABS: Alanine Aminotransferase 48 U/L (6-50); Alkaline Phosphatase 84 U/L (38-126); Anion Gap 7 mmol/L (8-16); Aspartate Amino Transferase 27 U/L (17-59); Bilirubin,Total 0.7 mg/dL (0.2-1.3); Blood Urea Nitrogen 23 mg/dL (9-20); Calcium 8.8 mg/dL (8.4-10.2); Carbon Dioxide 27 mmol/L (22-30); Chloride 103 mmol/L (98-107); Estimated CRCL calculation 46 ml/min; Estimated Glomerular Filt Rate 46; Glucose 114 mg/dL (65-110); Magnesium 2.2 mg/dL (1.6-2.3); Potassium 4.3 mmol/L (3.4-5.0); Sodium 137 mmol/L (137-145)
[2022-12-17 11:25] LABS: Basophils Absolute Auto 0.1 K/mm3 (0.0-0.1); Basophils Percent Auto 0.3 % (0.2-1.2); Eosinophils Absolute Auto 0.2 K/mm3 (0-0.3); Eosinophils Percent Auto 0.9 % (0-4.4); Hematocrit 36.5 % (42.0-52.0); Hemoglobin 11.4 g/dL (14.0-18.0); Immature Granulocyte Absolute 0.04 K/mm3 (0.00-0.031); Immature Granulocyte Percent A 0.2 % (0-0.5); Lymphocytes Absolute Auto 14.05 K/mm3 (0.9-3.2); Lymphocytes Percent Auto 80.3 % (18.3-44.2); Mean Corpuscular HGB Conc 31.2 g/dl (32-36); Mean Corpuscular Hemoglobin 28.3 pg (26-34); Mean Corpuscular Volume 90.6 fl (80-100); Mean Platelet Volume 8.5 fl (7.4-10.4); Monocytes Percent Auto 5.5 % (2.6-8.5); Neutrophils Absolute Auto 2.2 K/mm3 (1.3-6.7); Neutrophils Percent Auto 12.8 % (45.5-73.1); Platelet Count Result 110 k/mm3 (150-375); Red Blood Count 4.03 M/mm3 (4.6-6.20); Red Cell Distribution Width 14.6 % (11.5-14.5); White Blood Count 17.5 K/mm3 (4.5-10.0)
[2022-12-17 11:29] VITALS: BP 143/76; PULSE 69; RESP 18; TEMP 36.7; O2SAT 100
[2022-12-17 11:32] LABS: Alanine Aminotransferase 59 U/L (6-50); Albumin Level 4.1 g/dL (3.5-5.1); Alkaline Phosphatase 102 U/L (38-126); Anion Gap 7 mmol/L (8-16); Aspartate Amino Transferase 33 U/L (17-59); Bilirubin,Total 0.4 mg/dL (0.2-1.3); Blood Urea Nitrogen 21 mg/dL (9-20); Carbon Dioxide 27 mmol/L (22-30); Chloride 104 mmol/L (98-107); Estimated CRCL calculation 49 ml/min; Estimated Glomerular Filt Rate 49; Glucose 155 mg/dL (65-110); Magnesium 1.9 mg/dL (1.6-2.3); Potassium 4.2 mmol/L (3.4-5.0); Sodium 138 mmol/L (137-145)
[2022-12-17 11:46] LABS: Platelet Estimate Decreased (Adequate); Schistocytes None Seen (NORMAL); Smudge Cells FEW
[2022-12-17] MEDS: ONDANSETRON INJ 4 MG/2 ML VIAL 8 MG IV PUSH (12:08)
[2022-12-17] MEDS: GEMCITABINE HCL IVPB (12:52)
[2022-12-17] MEDS: SODIUM CHLORIDE 0.9% IVPB (12:52)
[2022-12-17] MEDS: HEPARIN SODIUM LOCK FLUSH 500 UNITS/5 ML SYRINGE IV PUSH (13:38)
[2022-12-17 13:39] VITALS: BP 130/66
[2022-12-31 10:57] LABS: Basophils Absolute Auto 0.1 K/mm3 (0.0-0.1); Basophils Percent Auto 0.4 % (0.2-1.2); Eosinophils Absolute Auto 0.2 K/mm3 (0-0.3); Eosinophils Percent Auto 0.9 % (0-4.4); Hematocrit 37.4 % (42.0-52.0); Hemoglobin 11.8 g/dL (14.0-18.0); Immature Granulocyte Absolute 0.18 K/mm3 (0.00-0.031); Immature Granulocyte Percent A 0.7 % (0-0.5); Lymphocytes Absolute Auto 18.92 K/mm3 (0.9-3.2); Lymphocytes Percent Auto 74.7 % (18.3-44.2); Mean Corpuscular HGB Conc 31.6 g/dl (32-36); Mean Corpuscular Hemoglobin 28.7 pg (26-34); Mean Platelet Volume 8.6 fl (7.4-10.4); Monocytes Absolute Auto 0.6 K/mm3 (0.1-0.6); Monocytes Percent Auto 2.5 % (2.6-8.5); Neutrophils Absolute Auto 5.3 K/mm3 (1.3-6.7); Neutrophils Percent Auto 20.8 % (45.5-73.1); Platelet Count Result 98 k/mm3 (150-375); Red Blood Count 4.11 M/mm3 (4.6-6.20); Red Cell Distribution Width 16.7 % (11.5-14.5); White Blood Count 25.3 K/mm3 (4.5-10.0)
[2022-12-31] MEDS: ALTEPLASE 2 MG VIAL (CATHFLO) IV PUSH (11:00)
[2022-12-31 11:01] LABS: Blood Urea Nitrogen 25 mg/dL (8-26); Carbon Dioxide 26 mmol/L (22-30); Chloride 102 mmol/L (98-109); Estimated CRCL calculation 36 ml/min; Estimated Glomerular Filt Rate 35; Glucose 179 mg/dL (70-105); Ionized Calcium (POC) 1.17 mmol/L (1.11-1.31); Potassium 4.1 mmol/L (3.5-4.9); Sodium 140 mmol/L (138-146)
[2022-12-31 11:20] VITALS: BP 135/64; PULSE 66; RESP 16; TEMP 36.6; O2SAT 100
[2022-12-31 11:24] LABS: Alanine Aminotransferase 57 U/L (6-50); Albumin Level 3.9 g/dL (3.5-5.1); Alkaline Phosphatase 84 U/L (38-126); Anion Gap 4 mmol/L (8-16); Aspartate Amino Transferase 41 U/L (17-59); Bilirubin,Total 0.4 mg/dL (0.2-1.3); Blood Urea Nitrogen 27 mg/dL (9-20); Calcium 9.2 mg/dL (8.4-10.2); Carbon Dioxide 29 mmol/L (22-30); Chloride 102 mmol/L (98-107); Estimated CRCL calculation 38 ml/min; Estimated Glomerular Filt Rate 37; Glucose 175 mg/dL (65-110); Magnesium 1.9 mg/dL (1.6-2.3); Sodium 135 mmol/L (137-145)
[2022-12-31] MEDS: OLANZapine DISPERTAB 5 MG PO (11:59)
[2022-12-31] MEDS: PALONOSETRON HCL 0.25 MG/5 ML VIAL IV PUSH (11:59)
[2022-12-31] MEDS: FOSAPREPITANT DIMEGLUMINE 150 MG in SODIUM CHLORIDE 0.9% IV 150 ML 300 MG IVPB (12:03)
[2022-12-31] MEDS: GEMCITABINE HCL IVPB (13:34)
[2022-12-31] MEDS: SODIUM CHLORIDE 0.9% IVPB (13:34)
[2022-12-31 14:10] VITALS: BP 139/71
[2022-12-31] MEDS: HEPARIN SODIUM LOCK FLUSH 500 UNITS/5 ML SYRINGE IV PUSH (14:17)
[2023-01-07 11:59] LABS: Basophils Absolute Auto 0.1 K/mm3 (0.0-0.1); Basophils Percent Auto 0.3 % (0.2-1.2); Eosinophils Absolute Auto 0.1 K/mm3 (0-0.3); Eosinophils Percent Auto 0.5 % (0-4.4); Hematocrit 33.9 % (42.0-52.0); Hemoglobin 10.9 g/dL (14.0-18.0); Immature Granulocyte Absolute 0.04 K/mm3 (0.00-0.031); Immature Granulocyte Percent A 0.2 % (0-0.5); Lymphocytes Absolute Auto 14.74 K/mm3 (0.9-3.2); Lymphocytes Percent Auto 84.8 % (18.3-44.2); Mean Corpuscular HGB Conc 32.2 g/dl (32-36); Mean Corpuscular Volume 90.2 fl (80-100); Mean Platelet Volume 8.8 fl (7.4-10.4); Monocytes Absolute Auto 0.3 K/mm3 (0.1-0.6); Monocytes Percent Auto 1.9 % (2.6-8.5); Neutrophils Absolute Auto 2.1 K/mm3 (1.3-6.7); Neutrophils Percent Auto 12.3 % (45.5-73.1); Platelet Count Result 124 k/mm3 (150-375); Red Blood Count 3.76 M/mm3 (4.6-6.20); Red Cell Distribution Width 16.5 % (11.5-14.5); White Blood Count 17.4 K/mm3 (4.5-10.0)
[2023-01-07] MEDS: ALTEPLASE 2 MG VIAL (CATHFLO) IV PUSH (12:04)
[2023-01-07 12:05] LABS: Blood Urea Nitrogen 24 mg/dL (8-26); Carbon Dioxide 26 mmol/L (22-30); Chloride 104 mmol/L (98-109); Estimated CRCL calculation 43 ml/min; Estimated Glomerular Filt Rate 42; Glucose 132 mg/dL (70-105); Ionized Calcium (POC) 1.28 mmol/L (1.11-1.31); Potassium 4.4 mmol/L (3.5-4.9); Sodium 140 mmol/L (138-146)
[2023-01-07 12:22] LABS: Alanine Aminotransferase 122 U/L (6-50); Albumin Level 3.8 g/dL (3.5-5.1); Alkaline Phosphatase 83 U/L (38-126); Anion Gap 4 mmol/L (8-16); Aspartate Amino Transferase 69 U/L (17-59); Bilirubin,Total 0.4 mg/dL (0.2-1.3); Blood Urea Nitrogen 25 mg/dL (9-20); Calcium 9.3 mg/dL (8.4-10.2); Carbon Dioxide 28 mmol/L (22-30); Chloride 102 mmol/L (98-107); Estimated CRCL calculation 43 ml/min; Estimated Glomerular Filt Rate 42; Glucose 129 mg/dL (65-110); Magnesium 1.8 mg/dL (1.6-2.3); Potassium 4.4 mmol/L (3.4-5.0); Sodium 134 mmol/L (137-145)
[2023-01-07 12:29] VITALS: BP 150/76; PULSE 68; O2SAT 99
[2023-01-07] MEDS: ONDANSETRON INJ 4 MG/2 ML VIAL 8 MG IV PUSH (12:49)
[2023-01-07] MEDS: SODIUM CHLORIDE 0.9% IVPB (13:29)
[2023-01-07] MEDS: GEMCITABINE HCL IVPB (13:29)
--- NOTE | 2023-01-07 13:49 | PC.NURSE ---
Patient with brisk blood return from port. Chemo moved to port for infusion.
[2023-01-07] MEDS: HEPARIN SODIUM LOCK FLUSH 500 UNITS/5 ML SYRINGE IV PUSH (14:16)
[2023-01-07 14:27] VITALS: BP 141/70
[2023-01-21 08:26] LABS: Basophils Absolute Auto 0.1 K/mm3 (0.0-0.1); Basophils Percent Auto 0.3 % (0.2-1.2); Eosinophils Absolute Auto 0.1 K/mm3 (0-0.3); Eosinophils Percent Auto 0.6 % (0-4.4); Hematocrit 30.7 % (42.0-52.0); Hemoglobin 9.8 g/dL (14.0-18.0); Immature Granulocyte Absolute 0.18 K/mm3 (0.00-0.031); Immature Granulocyte Percent A 0.9 % (0-0.5); Lymphocytes Absolute Auto 16.33 K/mm3 (0.9-3.2); Lymphocytes Percent Auto 83.5 % (18.3-44.2); Mean Corpuscular HGB Conc 31.9 g/dl (32-36); Mean Corpuscular Hemoglobin 29.3 pg (26-34); Mean Corpuscular Volume 91.6 fl (80-100); Mean Platelet Volume 8.5 fl (7.4-10.4); Monocytes Absolute Auto 0.8 K/mm3 (0.1-0.6); Monocytes Percent Auto 4.3 % (2.6-8.5); Neutrophils Percent Auto 10.4 % (45.5-73.1); Platelet Count Result 146 k/mm3 (150-375); Red Blood Count 3.35 M/mm3 (4.6-6.20); Red Cell Distribution Width 18.6 % (11.5-14.5); White Blood Count 19.6 K/mm3 (4.5-10.0)
[2023-01-21 08:30] LABS: Blood Urea Nitrogen 17 mg/dL (8-26); Carbon Dioxide 23 mmol/L (22-30); Chloride 104 mmol/L (98-109); Estimated CRCL calculation 39 ml/min; Estimated Glomerular Filt Rate 37; Glucose 118 mg/dL (70-105); Ionized Calcium (POC) 1.24 mmol/L (1.11-1.31); Potassium 4.4 mmol/L (3.5-4.9); Sodium 140 mmol/L (138-146)
[2023-01-21 08:48] LABS: Alanine Aminotransferase 60 U/L (6-50); Albumin Level 3.9 g/dL (3.5-5.1); Alkaline Phosphatase 86 U/L (38-126); Anion Gap 5 mmol/L (8-16); Aspartate Amino Transferase 44 U/L (17-59); Bilirubin,Total 0.4 mg/dL (0.2-1.3); Blood Urea Nitrogen 18 mg/dL (9-20); Calcium 9.1 mg/dL (8.4-10.2); Carbon Dioxide 27 mmol/L (22-30); Chloride 104 mmol/L (98-107); Estimated CRCL calculation 43 ml/min; Estimated Glomerular Filt Rate 42; Glucose 119 mg/dL (65-110); Potassium 4.4 mmol/L (3.4-5.0); Sodium 136 mmol/L (137-145)
[2023-01-21 09:14] VITALS: BP 157/74; PULSE 59; TEMP 36.1; O2SAT 100
[2023-01-21] MEDS: OLANZapine DISPERTAB 5 MG PO (09:30)
[2023-01-21] MEDS: PALONOSETRON HCL 0.25 MG/5 ML VIAL IV PUSH (09:30)
[2023-01-21] MEDS: FOSAPREPITANT DIMEGLUMINE 150 MG in SODIUM CHLORIDE 0.9% IV 150 ML 300 MG IVPB (09:38)
[2023-01-21] MEDS: GEMCITABINE HCL IVPB (11:17)
[2023-01-21] MEDS: SODIUM CHLORIDE 0.9% IVPB (11:17)
[2023-01-21 11:54] VITALS: BP 147/68; PULSE 57; RESP 16; O2SAT 100
[2023-01-21] MEDS: HEPARIN SODIUM LOCK FLUSH 500 UNITS/5 ML SYRINGE IV PUSH (11:56)
[2023-01-29 13:13] LABS: Basophils Absolute Auto 0.1 K/mm3 (0.0-0.1); Basophils Percent Auto 0.3 % (0.2-1.2); Eosinophils Absolute Auto 0.1 K/mm3 (0-0.3); Eosinophils Percent Auto 0.3 % (0-4.4); Immature Granulocyte Absolute 0.16 K/mm3 (0.00-0.031); Immature Granulocyte Percent A 0.9 % (0-0.5); Lymphocytes Absolute Auto 14.43 K/mm3 (0.9-3.2); Lymphocytes Percent Auto 79.6 % (18.3-44.2); Mean Corpuscular HGB Conc 32.1 g/dl (32-36); Mean Corpuscular Hemoglobin 29.7 pg (26-34); Mean Corpuscular Volume 92.4 fl (80-100); Mean Platelet Volume 8.3 fl (7.4-10.4); Monocytes Absolute Auto 0.5 K/mm3 (0.1-0.6); Monocytes Percent Auto 2.7 % (2.6-8.5); Neutrophils Absolute Auto 2.9 K/mm3 (1.3-6.7); Neutrophils Percent Auto 16.2 % (45.5-73.1); Nucleated Red Blood Cells Perc 0.1 % (0.0-0.2); Platelet Count Result 136 k/mm3 (150-375); Red Blood Count 3.03 M/mm3 (4.6-6.20); Red Cell Distribution Width 18.5 % (11.5-14.5); White Blood Count 18.1 K/mm3 (4.5-10.0)
[2023-01-29 13:17] LABS: Blood Urea Nitrogen 22 mg/dL (8-26); Carbon Dioxide 23 mmol/L (22-30); Chloride 106 mmol/L (98-109); Estimated CRCL calculation 41 ml/min; Estimated Glomerular Filt Rate 39; Glucose 103 mg/dL (70-105); Ionized Calcium (POC) 1.24 mmol/L (1.11-1.31); Potassium 4.5 mmol/L (3.5-4.9); Sodium 141 mmol/L (138-146)
[2023-01-29 13:18] VITALS: BP 171/76; PULSE 75; TEMP 36.6; O2SAT 100
[2023-01-29] MEDS: ONDANSETRON INJ 4 MG/2 ML VIAL 8 MG IV PUSH (13:39)
[2023-01-29] MEDS: EPOETIN ALFA-EPBX 20,000 UNITS/ML VIAL 20000 UNITS SUB-Q (13:39)
[2023-01-29] MEDS: SODIUM CHLORIDE 0.9% IVPB (14:28)
[2023-01-29] MEDS: GEMCITABINE HCL IVPB (14:28)
[2023-01-29 15:35] LABS: Alanine Aminotransferase 93 U/L (6-50); Albumin Level 3.7 g/dL (3.5-5.1); Alkaline Phosphatase 91 U/L (38-126); Anion Gap 9 mmol/L (8-16); Aspartate Amino Transferase 34 U/L (17-59); Bilirubin,Total 0.3 mg/dL (0.2-1.3); Blood Urea Nitrogen 23 mg/dL (9-20); Calcium 9.2 mg/dL (8.4-10.2); Carbon Dioxide 24 mmol/L (22-30); Chloride 106 mmol/L (98-107); Estimated CRCL calculation 46 ml/min; Estimated Glomerular Filt Rate 46; Glucose 102 mg/dL (65-110); Magnesium 1.6 mg/dL (1.6-2.3); Potassium 4.5 mmol/L (3.4-5.0); Sodium 139 mmol/L (137-145)
[2023-02-11 10:05] LABS: Basophils Absolute Auto 0.1 K/mm3 (0.0-0.1); Basophils Percent Auto 0.3 % (0.2-1.2); Eosinophils Absolute Auto 0.1 K/mm3 (0-0.3); Eosinophils Percent Auto 0.4 % (0-4.4); Hematocrit 26.1 % (42.0-52.0); Immature Granulocyte Absolute 0.55 K/mm3 (0.00-0.031); Immature Granulocyte Percent A 2.1 % (0-0.5); Lymphocytes Absolute Auto 19.31 K/mm3 (0.9-3.2); Lymphocytes Percent Auto 72.9 % (18.3-44.2); Mean Corpuscular HGB Conc 30.7 g/dl (32-36); Mean Corpuscular Hemoglobin 29.9 pg (26-34); Mean Corpuscular Volume 97.4 fl (80-100); Mean Platelet Volume 9.9 fl (7.4-10.4); Monocytes Absolute Auto 1.5 K/mm3 (0.1-0.6); Monocytes Percent Auto 5.6 % (2.6-8.5); Neutrophils Percent Auto 18.7 % (45.5-73.1); Nucleated Red Blood Cells Perc 0.2 % (0.0-0.2); Platelet Count Result 126 k/mm3 (150-375); Red Blood Count 2.68 M/mm3 (4.6-6.20); Red Cell Distribution Width 20.9 % (11.5-14.5); White Blood Count 26.5 K/mm3 (4.5-10.0)
[2023-02-11 10:13] LABS: Blood Urea Nitrogen 20 mg/dL (8-26); Carbon Dioxide 23 mmol/L (22-30); Chloride 106 mmol/L (98-109); Estimated CRCL calculation 37 ml/min; Estimated Glomerular Filt Rate 35; Glucose 104 mg/dL (70-105); Ionized Calcium (POC) 1.12 mmol/L (1.11-1.31); Potassium 4.5 mmol/L (3.5-4.9); Sodium 140 mmol/L (138-146)
[2023-02-11 10:42] VITALS: BP 144/70; PULSE 70; TEMP 36.4; O2SAT 99
[2023-02-11] MEDS: HEPARIN SODIUM LOCK FLUSH 500 UNITS/5 ML SYRINGE IV PUSH (10:52)
[2023-02-11] MEDS: EPOETIN ALFA-EPBX 20,000 UNITS/ML VIAL 20000 UNITS SUB-Q (10:53)
[2023-02-11 12:04] LABS: Alanine Aminotransferase 33 U/L (6-50); Albumin Level 3.6 g/dL (3.5-5.1); Alkaline Phosphatase 77 U/L (38-126); Anion Gap 8 mmol/L (8-16); Aspartate Amino Transferase 23 U/L (17-59); Bilirubin,Total 0.4 mg/dL (0.2-1.3); Blood Urea Nitrogen 21 mg/dL (9-20); Calcium 8.4 mg/dL (8.4-10.2); Carbon Dioxide 24 mmol/L (22-30); Chloride 107 mmol/L (98-107); Estimated CRCL calculation 41 ml/min; Estimated Glomerular Filt Rate 39; Glucose 103 mg/dL (65-110); Magnesium 2.3 mg/dL (1.6-2.3); Potassium 4.5 mmol/L (3.4-5.0); Sodium 139 mmol/L (137-145)
[2023-02-18 10:26] VITALS: BP 164/76; PULSE 72; TEMP 36.4; O2SAT 100
[2023-02-18 10:39] LABS: Basophils Absolute Auto 0.1 K/mm3 (0.0-0.1); Basophils Percent Auto 0.5 % (0.2-1.2); Eosinophils Absolute Auto 0.1 K/mm3 (0-0.3); Eosinophils Percent Auto 0.5 % (0-4.4); Hematocrit 28.9 % (42.0-52.0); Hemoglobin 8.7 g/dL (14.0-18.0); Immature Granulocyte Percent A 1.4 % (0-0.5); Lymphocytes Absolute Auto 19.68 K/mm3 (0.9-3.2); Lymphocytes Percent Auto 69.3 % (18.3-44.2); Mean Corpuscular HGB Conc 30.1 g/dl (32-36); Mean Corpuscular Hemoglobin 29.2 pg (26-34); Mean Platelet Volume 8.4 fl (7.4-10.4); Monocytes Absolute Auto 1.5 K/mm3 (0.1-0.6); Monocytes Percent Auto 5.1 % (2.6-8.5); Neutrophils Absolute Auto 6.6 K/mm3 (1.3-6.7); Neutrophils Percent Auto 23.2 % (45.5-73.1); Nucleated Red Blood Cells Perc 0.1 % (0.0-0.2); Platelet Count Result 247 k/mm3 (150-375); Red Blood Count 2.98 M/mm3 (4.6-6.20); Red Cell Distribution Width 20.7 % (11.5-14.5); White Blood Count 28.4 K/mm3 (4.5-10.0)
[2023-02-18 10:43] LABS: Blood Urea Nitrogen 20 mg/dL (8-26); Carbon Dioxide 23 mmol/L (22-30); Chloride 105 mmol/L (98-109); Estimated CRCL calculation 35 ml/min; Estimated Glomerular Filt Rate 33; Glucose 107 mg/dL (70-105); Ionized Calcium (POC) 1.23 mmol/L (1.11-1.31); Potassium 4.6 mmol/L (3.5-4.9); Sodium 141 mmol/L (138-146)
[2023-02-18] MEDS: FOSAPREPITANT DIMEGLUMINE 150 MG in SODIUM CHLORIDE 0.9% IV 150 ML 300 MG IVPB (11:34)
[2023-02-18] MEDS: PALONOSETRON HCL 0.25 MG/5 ML VIAL IV PUSH (11:34)
[2023-02-18] MEDS: OLANZapine DISPERTAB 5 MG PO (11:34)
[2023-02-18 12:10] LABS: Alanine Aminotransferase 24 U/L (6-50); Albumin Level 3.8 g/dL (3.5-5.1); Alkaline Phosphatase 84 U/L (38-126); Anion Gap 10 mmol/L (8-16); Aspartate Amino Transferase 21 U/L (17-59); Bilirubin,Total 0.5 mg/dL (0.2-1.3); Blood Urea Nitrogen 21 mg/dL (9-20); Calcium 9.3 mg/dL (8.4-10.2); Carbon Dioxide 24 mmol/L (22-30); Chloride 105 mmol/L (98-107); Estimated CRCL calculation 36 ml/min; Estimated Glomerular Filt Rate 35; Glucose 105 mg/dL (65-110); Magnesium 1.9 mg/dL (1.6-2.3); Potassium 4.6 mmol/L (3.4-5.0); Sodium 139 mmol/L (137-145)
[2023-02-18] MEDS: SODIUM CHLORIDE 0.9% IVPB (13:09)
[2023-02-18] MEDS: GEMCITABINE HCL IVPB (13:09)
[2023-02-26 12:05] LABS: Basophils Absolute Auto 0.1 K/mm3 (0.0-0.1); Basophils Percent Auto 0.5 % (0.2-1.2); Eosinophils Absolute Auto 0.1 K/mm3 (0-0.3); Eosinophils Percent Auto 0.5 % (0-4.4); Hematocrit 27.7 % (42.0-52.0); Hemoglobin 8.4 g/dL (14.0-18.0); Immature Granulocyte Absolute 0.14 K/mm3 (0.00-0.031); Immature Granulocyte Percent A 0.7 % (0-0.5); Lymphocytes Absolute Auto 14.09 K/mm3 (0.9-3.2); Lymphocytes Percent Auto 70.7 % (18.3-44.2); Mean Corpuscular HGB Conc 30.3 g/dl (32-36); Mean Corpuscular Hemoglobin 29.1 pg (26-34); Mean Corpuscular Volume 95.8 fl (80-100); Monocytes Absolute Auto 0.6 K/mm3 (0.1-0.6); Monocytes Percent Auto 2.8 % (2.6-8.5); Neutrophils Percent Auto 24.8 % (45.5-73.1); Platelet Count Result 107 k/mm3 (150-375); Red Blood Count 2.89 M/mm3 (4.6-6.20); Red Cell Distribution Width 18.8 % (11.5-14.5); White Blood Count 19.9 K/mm3 (4.5-10.0)
[2023-02-26 12:08] LABS: Blood Urea Nitrogen 23 mg/dL (8-26); Carbon Dioxide 24 mmol/L (22-30); Chloride 105 mmol/L (98-109); Estimated CRCL calculation 36 ml/min; Estimated Glomerular Filt Rate 35; Glucose 166 mg/dL (70-105); Ionized Calcium (POC) 1.23 mmol/L (1.11-1.31); Potassium 4.5 mmol/L (3.5-4.9); Sodium 139 mmol/L (138-146)
[2023-02-26 12:31] VITALS: BP 154/72; PULSE 99; TEMP 37; O2SAT 100
[2023-02-26 12:43] LABS: Alanine Aminotransferase 56 U/L (6-50); Albumin Level 3.8 g/dL (3.5-5.1); Alkaline Phosphatase 93 U/L (38-126); Anion Gap 9 mmol/L (8-16); Aspartate Amino Transferase 36 U/L (17-59); Bilirubin,Total 0.5 mg/dL (0.2-1.3); Blood Urea Nitrogen 24 mg/dL (9-20); Calcium 9.1 mg/dL (8.4-10.2); Carbon Dioxide 23 mmol/L (22-30); Chloride 106 mmol/L (98-107); Estimated CRCL calculation 40 ml/min; Estimated Glomerular Filt Rate 39; Glucose 164 mg/dL (65-110); Magnesium 1.7 mg/dL (1.6-2.3); Potassium 4.5 mmol/L (3.4-5.0); Sodium 138 mmol/L (137-145)
[2023-02-26] MEDS: ONDANSETRON INJ 4 MG/2 ML VIAL 8 MG IV PUSH (12:49)
[2023-02-26] MEDS: EPOETIN ALFA-EPBX 20,000 UNITS/ML VIAL 20000 UNITS SUB-Q (13:00)
[2023-02-26] MEDS: GEMCITABINE HCL IVPB (13:34)
[2023-02-26] MEDS: SODIUM CHLORIDE 0.9% IVPB (13:34)
[2023-02-26 14:09] VITALS: BP 138/68
[2023-02-26] MEDS: HEPARIN SODIUM LOCK FLUSH 500 UNITS/5 ML SYRINGE IV PUSH (14:11)
[2023-03-12 10:20] LABS: Basophils Absolute Auto 0.1 K/mm3 (0.0-0.1); Basophils Percent Auto 0.3 % (0.2-1.2); Eosinophils Absolute Auto 0.2 K/mm3 (0-0.3); Eosinophils Percent Auto 0.9 % (0-4.4); Hematocrit 34.3 % (42.0-52.0); Hemoglobin 10.2 g/dL (14.0-18.0); Immature Granulocyte Absolute 0.17 K/mm3 (0.00-0.031); Immature Granulocyte Percent A 0.9 % (0-0.5); Lymphocytes Absolute Auto 12.86 K/mm3 (0.9-3.2); Lymphocytes Percent Auto 69.9 % (18.3-44.2); Mean Corpuscular HGB Conc 29.7 g/dl (32-36); Mean Corpuscular Hemoglobin 29.3 pg (26-34); Mean Corpuscular Volume 98.6 fl (80-100); Mean Platelet Volume 9.2 fl (7.4-10.4); Monocytes Absolute Auto 0.9 K/mm3 (0.1-0.6); Monocytes Percent Auto 5.1 % (2.6-8.5); Neutrophils Absolute Auto 4.2 K/mm3 (1.3-6.7); Neutrophils Percent Auto 22.9 % (45.5-73.1); Platelet Count Result 184 k/mm3 (150-375); Red Blood Count 3.48 M/mm3 (4.6-6.20); Red Cell Distribution Width 20.6 % (11.5-14.5); White Blood Count 18.4 K/mm3 (4.5-10.0)
--- NOTE | 2023-03-12 10:31 | PC.NURSE ---
injection not needed per protocol
[2023-03-26 09:49] LABS: Basophils Absolute Auto 0.1 K/mm3 (0.0-0.1); Basophils Percent Auto 0.5 % (0.2-1.2); Eosinophils Absolute Auto 0.2 K/mm3 (0-0.3); Eosinophils Percent Auto 0.9 % (0-4.4); Hematocrit 35.2 % (42.0-52.0); Hemoglobin 10.6 g/dL (14.0-18.0); Immature Granulocyte Absolute 0.18 K/mm3 (0.00-0.031); Immature Granulocyte Percent A 0.8 % (0-0.5); Lymphocytes Absolute Auto 14.02 K/mm3 (0.9-3.2); Lymphocytes Percent Auto 61.5 % (18.3-44.2); Mean Corpuscular HGB Conc 30.1 g/dl (32-36); Mean Corpuscular Hemoglobin 29.3 pg (26-34); Mean Corpuscular Volume 97.2 fl (80-100); Mean Platelet Volume 7.7 fl (7.4-10.4); Monocytes Absolute Auto 0.8 K/mm3 (0.1-0.6); Monocytes Percent Auto 3.6 % (2.6-8.5); Neutrophils Absolute Auto 7.5 K/mm3 (1.3-6.7); Neutrophils Percent Auto 32.7 % (45.5-73.1); Platelet Count Result 144 k/mm3 (150-375); Red Blood Count 3.62 M/mm3 (4.6-6.20); Red Cell Distribution Width 17.5 % (11.5-14.5); White Blood Count 22.8 K/mm3 (4.5-10.0)
[2023-03-26 09:55] LABS: Blood Urea Nitrogen 26 mg/dL (8-26); Carbon Dioxide 26 mmol/L (22-30); Chloride 103 mmol/L (98-109); Estimated CRCL calculation 34 ml/min; Estimated Glomerular Filt Rate 33; Glucose 183 mg/dL (70-105); Ionized Calcium (POC) 1.24 mmol/L (1.11-1.31); Potassium 4.5 mmol/L (3.5-4.9); Sodium 141 mmol/L (138-146)
--- NOTE | 2023-03-26 09:56 | PC.NURSE ---
Treatment cancelled, patient's hemoglobulin 10.6
[2023-03-26 13:48] LABS: Alanine Aminotransferase 18 U/L (6-50); Alkaline Phosphatase 91 U/L (38-126); Anion Gap 7 mmol/L (8-16); Aspartate Amino Transferase 19 U/L (17-59); Bilirubin,Total 0.5 mg/dL (0.2-1.3); Blood Urea Nitrogen 25 mg/dL (9-20); Calcium 9.4 mg/dL (8.4-10.2); Carbon Dioxide 26 mmol/L (22-30); Chloride 104 mmol/L (98-107); Estimated CRCL calculation 36 ml/min; Estimated Glomerular Filt Rate 35; Glucose 185 mg/dL (65-110); Potassium 4.5 mmol/L (3.4-5.0); Sodium 137 mmol/L (137-145)
[2023-04-09 13:18] LABS: Basophils Absolute Auto 0.1 K/mm3 (0.0-0.1); Basophils Percent Auto 0.5 % (0.2-1.2); Eosinophils Absolute Auto 0.4 K/mm3 (0-0.3); Eosinophils Percent Auto 2.3 % (0-4.4); Hematocrit 33.4 % (42.0-52.0); Hemoglobin 10.2 g/dL (14.0-18.0); Immature Granulocyte Percent A 0.5 % (0-0.5); Lymphocytes Absolute Auto 11.39 K/mm3 (0.9-3.2); Lymphocytes Percent Auto 60.6 % (18.3-44.2); Mean Corpuscular HGB Conc 30.5 g/dl (32-36); Mean Corpuscular Hemoglobin 28.7 pg (26-34); Mean Corpuscular Volume 93.8 fl (80-100); Mean Platelet Volume 8.3 fl (7.4-10.4); Monocytes Absolute Auto 0.7 K/mm3 (0.1-0.6); Monocytes Percent Auto 3.6 % (2.6-8.5); Neutrophils Absolute Auto 6.1 K/mm3 (1.3-6.7); Neutrophils Percent Auto 32.5 % (45.5-73.1); Platelet Count Result 122 k/mm3 (150-375); Red Blood Count 3.56 M/mm3 (4.6-6.20); White Blood Count 18.8 K/mm3 (4.5-10.0)
[2023-04-09 13:22] LABS: Blood Urea Nitrogen 28 mg/dL (8-26); Carbon Dioxide 25 mmol/L (22-30); Chloride 104 mmol/L (98-109); Estimated CRCL calculation 34 ml/min; Estimated Glomerular Filt Rate 33; Glucose 152 mg/dL (70-105); Ionized Calcium (POC) 1.22 mmol/L (1.11-1.31); Potassium 4.3 mmol/L (3.5-4.9); Sodium 141 mmol/L (138-146)
[2023-04-09 13:43] VITALS: BP 140/63; PULSE 88; TEMP 36.7; O2SAT 100
[2023-04-09] MEDS: ACETAMINOPHEN 325 MG TABLET 650 MG PO (13:55)
[2023-04-09] MEDS: diphenhydrAMINE HCl INJ 50 MG/ML VIAL 25 MG IV PUSH (13:56)
[2023-04-09 15:35] VITALS: BP 139/70
[2023-04-09] MEDS: HEPARIN SODIUM LOCK FLUSH 500 UNITS/5 ML SYRINGE IV PUSH (16:34)
[2023-04-09 16:41] LABS: Alanine Aminotransferase 15 U/L (6-50); Albumin Level 3.7 g/dL (3.5-5.1); Alkaline Phosphatase 92 U/L (38-126); Anion Gap 9 mmol/L (8-16); Aspartate Amino Transferase 16 U/L (17-59); Bilirubin,Total 0.4 mg/dL (0.2-1.3); Blood Urea Nitrogen 29 mg/dL (9-20); Carbon Dioxide 27 mmol/L (22-30); Chloride 104 mmol/L (98-107); Estimated CRCL calculation 38 ml/min; Estimated Glomerular Filt Rate 37; Glucose 150 mg/dL (65-110); Potassium 4.3 mmol/L (3.4-5.0); Sodium 140 mmol/L (137-145)
[2023-04-23 08:25] LABS: Basophils Absolute Auto 0.1 K/mm3 (0.0-0.1); Basophils Percent Auto 0.5 % (0.2-1.2); Eosinophils Absolute Auto 0.5 K/mm3 (0-0.3); Eosinophils Percent Auto 2.4 % (0-4.4); Hematocrit 36.9 % (42.0-52.0); Hemoglobin 11.2 g/dL (14.0-18.0); Immature Granulocyte Absolute 0.15 K/mm3 (0.00-0.031); Immature Granulocyte Percent A 0.7 % (0-0.5); Lymphocytes Absolute Auto 12.84 K/mm3 (0.9-3.2); Lymphocytes Percent Auto 63.1 % (18.3-44.2); Mean Corpuscular HGB Conc 30.4 g/dl (32-36); Mean Corpuscular Hemoglobin 27.9 pg (26-34); Mean Corpuscular Volume 91.8 fl (80-100); Mean Platelet Volume 8.9 fl (7.4-10.4); Monocytes Absolute Auto 0.7 K/mm3 (0.1-0.6); Monocytes Percent Auto 3.4 % (2.6-8.5); Neutrophils Absolute Auto 6.1 K/mm3 (1.3-6.7); Neutrophils Percent Auto 29.9 % (45.5-73.1); Platelet Count Result 112 k/mm3 (150-375); Red Blood Count 4.02 M/mm3 (4.6-6.20); Red Cell Distribution Width 15.6 % (11.5-14.5); White Blood Count 20.4 K/mm3 (4.5-10.0)
[2023-04-23 08:27] LABS: Atypical Lymphocytes Present; Platelet Estimate Decreased (Adequate); Schistocytes None Seen (NORMAL)
[2023-04-23 08:29] LABS: Blood Urea Nitrogen 27 mg/dL (8-26); Carbon Dioxide 27 mmol/L (22-30); Chloride 103 mmol/L (98-109); Estimated CRCL calculation 36 ml/min; Estimated Glomerular Filt Rate 35; Glucose 128 mg/dL (70-105); Ionized Calcium (POC) 1.21 mmol/L (1.11-1.31); Potassium 4.4 mmol/L (3.5-4.9); Sodium 141 mmol/L (138-146)
[2023-04-23 09:40] LABS: Alanine Aminotransferase 16 U/L (6-50); Albumin Level 4.1 g/dL (3.5-5.1); Alkaline Phosphatase 97 U/L (38-126); Anion Gap 6 mmol/L (8-16); Aspartate Amino Transferase 20 U/L (17-59); Bilirubin,Total 0.5 mg/dL (0.2-1.3); Blood Urea Nitrogen 28 mg/dL (9-20); Calcium 9.5 mg/dL (8.4-10.2); Carbon Dioxide 28 mmol/L (22-30); Chloride 104 mmol/L (98-107); Estimated CRCL calculation 38 ml/min; Estimated Glomerular Filt Rate 37; Glucose 130 mg/dL (65-110); Potassium 4.4 mmol/L (3.4-5.0); Sodium 138 mmol/L (137-145)
[2023-04-24 08:31] VITALS: BP 146/72; PULSE 91; TEMP 36.7; O2SAT 100
[2023-04-24] MEDS: diphenhydrAMINE HCl INJ 50 MG/ML VIAL 25 MG IV PUSH (08:38)
[2023-04-24] MEDS: ACETAMINOPHEN 325 MG TABLET 650 MG PO (08:38)
[2023-04-24] MEDS: HEPARIN SODIUM LOCK FLUSH 500 UNITS/5 ML SYRINGE IV PUSH (10:21)
[2023-04-24 10:26] VITALS: BP 120/67
[2023-05-07 10:36] LABS: Basophils Absolute Auto 0.1 K/mm3 (0.0-0.1); Basophils Percent Auto 0.3 % (0.2-1.2); Eosinophils Absolute Auto 0.4 K/mm3 (0-0.3); Eosinophils Percent Auto 2.1 % (0-4.4); Hematocrit 36.7 % (42.0-52.0); Hemoglobin 11.2 g/dL (14.0-18.0); Immature Granulocyte Absolute 0.07 K/mm3 (0.00-0.031); Immature Granulocyte Percent A 0.4 % (0-0.5); Lymphocytes Absolute Auto 11.78 K/mm3 (0.9-3.2); Lymphocytes Percent Auto 65.4 % (18.3-44.2); Mean Corpuscular HGB Conc 30.5 g/dl (32-36); Mean Corpuscular Hemoglobin 27.5 pg (26-34); Mean Corpuscular Volume 90.2 fl (80-100); Mean Platelet Volume 7.6 fl (7.4-10.4); Monocytes Absolute Auto 0.5 K/mm3 (0.1-0.6); Monocytes Percent Auto 2.9 % (2.6-8.5); Neutrophils Absolute Auto 5.2 K/mm3 (1.3-6.7); Neutrophils Percent Auto 28.9 % (45.5-73.1); Platelet Count Result 104 k/mm3 (150-375); Red Blood Count 4.07 M/mm3 (4.6-6.20); Red Cell Distribution Width 15.4 % (11.5-14.5)
[2023-05-07 10:40] LABS: Blood Urea Nitrogen 29 mg/dL (8-26); Carbon Dioxide 25 mmol/L (22-30); Chloride 101 mmol/L (98-109); Estimated CRCL calculation 34 ml/min; Estimated Glomerular Filt Rate 33; Glucose 192 mg/dL (70-105); Ionized Calcium (POC) 1.24 mmol/L (1.11-1.31); Potassium 4.3 mmol/L (3.5-4.9); Sodium 139 mmol/L (138-146)
[2023-05-07 10:59] VITALS: BP 117/63; PULSE 87; TEMP 36.7; O2SAT 100
[2023-05-07] MEDS: diphenhydrAMINE HCl INJ 50 MG/ML VIAL 25 MG IV PUSH (11:20)
[2023-05-07] MEDS: ACETAMINOPHEN 325 MG TABLET 650 MG PO (11:21)
[2023-05-07 11:58] LABS: Alanine Aminotransferase 16 U/L (6-50); Albumin Level 3.8 g/dL (3.5-5.1); Alkaline Phosphatase 103 U/L (38-126); Anion Gap 9 mmol/L (8-16); Aspartate Amino Transferase 18 U/L (17-59); Bilirubin,Total 0.5 mg/dL (0.2-1.3); Blood Urea Nitrogen 30 mg/dL (9-20); Calcium 9.4 mg/dL (8.4-10.2); Carbon Dioxide 25 mmol/L (22-30); Chloride 103 mmol/L (98-107); Estimated CRCL calculation 36 ml/min; Estimated Glomerular Filt Rate 35; Glucose 195 mg/dL (65-110); Potassium 4.4 mmol/L (3.4-5.0); Sodium 137 mmol/L (137-145)
[2023-05-07] MEDS: HEPARIN SODIUM LOCK FLUSH 500 UNITS/5 ML SYRINGE IV PUSH (13:18)
[2023-05-07 13:26] VITALS: BP 120/67
[2023-06-04 11:07] LABS: Hematocrit 37.2 % (42.0-52.0); Hemoglobin 11.3 g/dL (14.0-18.0); Mean Corpuscular HGB Conc 30.4 g/dl (32-36); Mean Corpuscular Hemoglobin 26.4 pg (26-34); Mean Corpuscular Volume 86.9 fl (80-100); Mean Platelet Volume 8.2 fl (7.4-10.4); Platelet Count Result 130 k/mm3 (150-375); Red Blood Count 4.28 M/mm3 (4.6-6.20); Red Cell Distribution Width 15.9 % (11.5-14.5); White Blood Count 18.7 K/mm3 (4.5-10.0)
[2023-06-04 11:10] LABS: Blood Urea Nitrogen 25 mg/dL (8-26); Carbon Dioxide 26 mmol/L (22-30); Chloride 103 mmol/L (98-109); Estimated CRCL calculation 34 ml/min; Estimated Glomerular Filt Rate 33; Glucose 143 mg/dL (70-105); Ionized Calcium (POC) 1.19 mmol/L (1.11-1.31); Potassium 4.1 mmol/L (3.5-4.9); Sodium 140 mmol/L (138-146)
[2023-06-04 11:13] LABS: Atypical Lymphocytes Present; Eosinophils Absolute Manual 0.18 K/mm3 (0.02-0.5); Eosinophils Percent Manual 1 % (0-4); Lymphocytes Absolute Manual 10.65 K/mm3 (1.1-4.5); Monocytes Absolute Manual 0.56 K/mm3 (0.1-0.90); Monocytes Percent Manual 3 % (3-9); Neutrophils Percent Manual 39 % (46-73); Platelet Estimate Decreased (Adequate); Schistocytes None Seen (NORMAL); Total Cells Counted 100
[2023-06-04 12:03] VITALS: BP 152/74; PULSE 91; TEMP 36.4; O2SAT 98
[2023-06-04] MEDS: ACETAMINOPHEN 325 MG TABLET 650 MG PO (12:40)
[2023-06-04] MEDS: diphenhydrAMINE HCl INJ 50 MG/ML VIAL 25 MG IV PUSH (12:41)
[2023-06-04 13:31] LABS: Alanine Aminotransferase 17 U/L (6-50); Alkaline Phosphatase 98 U/L (38-126); Anion Gap 8 mmol/L (8-16); Aspartate Amino Transferase 20 U/L (17-59); Bilirubin,Total 0.5 mg/dL (0.2-1.3); Blood Urea Nitrogen 25 mg/dL (9-20); Calcium 9.1 mg/dL (8.4-10.2); Carbon Dioxide 27 mmol/L (22-30); Chloride 104 mmol/L (98-107); Estimated CRCL calculation 35 ml/min; Estimated Glomerular Filt Rate 35; Glucose 146 mg/dL (65-110); Potassium 4.2 mmol/L (3.4-5.0); Sodium 139 mmol/L (137-145)
[2023-06-04 13:55] LABS: Hepatitis B Surface Antigen Negative (Negative)
[2023-06-04] MEDS: HEPARIN SODIUM LOCK FLUSH 500 UNITS/5 ML SYRINGE IV PUSH (14:23)
[2023-06-06 12:49] LABS: NIL 0.04 IU/mL; Quantiferon TB Plus, 1T NEGATIVE (NEGATIVE); TB2-NIL <0.00 IU/mL
[2023-06-18 11:30] LABS: Basophils Absolute Auto 0.1 K/mm3 (0.0-0.1); Basophils Percent Auto 0.3 % (0.2-1.2); Eosinophils Absolute Auto 0.3 K/mm3 (0-0.3); Eosinophils Percent Auto 1.2 % (0-4.4); Hematocrit 37.1 % (42.0-52.0); Hemoglobin 11.3 g/dL (14.0-18.0); Immature Granulocyte Absolute 0.16 K/mm3 (0.00-0.031); Immature Granulocyte Percent A 0.6 % (0-0.5); Lymphocytes Absolute Auto 15.93 K/mm3 (0.9-3.2); Lymphocytes Percent Auto 63.8 % (18.3-44.2); Mean Corpuscular HGB Conc 30.5 g/dl (32-36); Mean Corpuscular Hemoglobin 26.3 pg (26-34); Mean Corpuscular Volume 86.5 fl (80-100); Mean Platelet Volume 8.3 fl (7.4-10.4); Monocytes Absolute Auto 0.9 K/mm3 (0.1-0.6); Monocytes Percent Auto 3.6 % (2.6-8.5); Neutrophils Absolute Auto 7.6 K/mm3 (1.3-6.7); Neutrophils Percent Auto 30.5 % (45.5-73.1); Platelet Count Result 111 k/mm3 (150-375); Red Blood Count 4.29 M/mm3 (4.6-6.20); Red Cell Distribution Width 16.7 % (11.5-14.5)
[2023-06-18 11:33] LABS: Blood Urea Nitrogen 29 mg/dL (8-26); Carbon Dioxide 26 mmol/L (22-30); Chloride 102 mmol/L (98-109); Estimated CRCL calculation 37 ml/min; Estimated Glomerular Filt Rate 37; Glucose 118 mg/dL (70-105); Potassium 4.6 mmol/L (3.5-4.9); Sodium 138 mmol/L (138-146)
[2023-06-18 11:39] VITALS: BP 126/62; PULSE 88; TEMP 36.6; O2SAT 100
[2023-06-18] MEDS: ACETAMINOPHEN 325 MG TABLET 650 MG PO (12:12)
[2023-06-18] MEDS: diphenhydrAMINE HCl INJ 50 MG/ML VIAL 25 MG IV PUSH (12:12)
[2023-06-18 14:07] VITALS: BP 142/73
[2023-06-18] MEDS: HEPARIN SODIUM LOCK FLUSH 500 UNITS/5 ML SYRINGE IV PUSH (14:10)
[2023-06-18 16:34] LABS: Alanine Aminotransferase 17 U/L (6-50); Albumin Level 3.7 g/dL (3.5-5.1); Alkaline Phosphatase 89 U/L (38-126); Anion Gap 5 mmol/L (8-16); Aspartate Amino Transferase 18 U/L (17-59); Bilirubin,Total 0.7 mg/dL (0.2-1.3); Blood Urea Nitrogen 30 mg/dL (9-20); Calcium 9.1 mg/dL (8.4-10.2); Carbon Dioxide 27 mmol/L (22-30); Chloride 104 mmol/L (98-107); Estimated CRCL calculation 42 ml/min; Estimated Glomerular Filt Rate 42; Glucose 114 mg/dL (65-110); Potassium 4.7 mmol/L (3.4-5.0); Sodium 136 mmol/L (137-145)
[2023-07-02 12:39] LABS: White Blood Count 29.6 K/mm3 (4.5-10.0)
[2023-07-02 12:40] LABS: Basophils Absolute Auto 0.1 K/mm3 (0.0-0.1); Basophils Percent Auto 0.3 % (0.2-1.2); Eosinophils Absolute Auto 0.2 K/mm3 (0-0.3); Eosinophils Percent Auto 0.6 % (0-4.4); Hematocrit 37.6 % (42.0-52.0); Hemoglobin 11.5 g/dL (14.0-18.0); Immature Granulocyte Absolute 0.33 K/mm3 (0.00-0.031); Immature Granulocyte Percent A 1.1 % (0-0.5); Lymphocytes Absolute Auto 20.09 K/mm3 (0.9-3.2); Mean Corpuscular HGB Conc 30.6 g/dl (32-36); Mean Corpuscular Hemoglobin 26.3 pg (26-34); Mean Corpuscular Volume 85.8 fl (80-100); Mean Platelet Volume 8.1 fl (7.4-10.4); Monocytes Absolute Auto 0.9 K/mm3 (0.1-0.6); Monocytes Percent Auto 3.1 % (2.6-8.5); Neutrophils Absolute Auto 7.9 K/mm3 (1.3-6.7); Neutrophils Percent Auto 26.9 % (45.5-73.1); Platelet Count Result 122 k/mm3 (150-375); Red Blood Count 4.38 M/mm3 (4.6-6.20)
[2023-07-02 12:44] LABS: Blood Urea Nitrogen 29 mg/dL (8-26); Carbon Dioxide 26 mmol/L (22-30); Chloride 103 mmol/L (98-109); Estimated CRCL calculation 42 ml/min; Estimated Glomerular Filt Rate 42; Glucose 175 mg/dL (70-105); Ionized Calcium (POC) 1.21 mmol/L (1.11-1.31); Potassium 4.4 mmol/L (3.5-4.9); Sodium 138 mmol/L (138-146)
[2023-07-02 13:43] VITALS: BP 127/76; PULSE 78; TEMP 36.4; O2SAT 100
[2023-07-02 13:57] LABS: Alanine Aminotransferase 18 U/L (6-50); Albumin Level 3.5 g/dL (3.5-5.1); Alkaline Phosphatase 96 U/L (38-126); Anion Gap 7 mmol/L (8-16); Aspartate Amino Transferase 17 U/L (17-59); Bilirubin,Total 0.5 mg/dL (0.2-1.3); Blood Urea Nitrogen 31 mg/dL (9-20); Calcium 9.1 mg/dL (8.4-10.2); Carbon Dioxide 24 mmol/L (22-30); Chloride 103 mmol/L (98-107); Estimated CRCL calculation 51 ml/min; Estimated Glomerular Filt Rate 54; Glucose 171 mg/dL (65-110); Potassium 4.4 mmol/L (3.4-5.0); Sodium 134 mmol/L (137-145)
[2023-07-02] MEDS: ACETAMINOPHEN 325 MG TABLET 650 MG PO (14:08)
[2023-07-02] MEDS: diphenhydrAMINE HCl INJ 50 MG/ML VIAL 25 MG IV PUSH (14:09)
[2023-07-02 15:45] VITALS: BP 137/64
[2023-07-02] MEDS: HEPARIN SODIUM LOCK FLUSH 500 UNITS/5 ML SYRINGE IV PUSH (15:46)
[2023-07-16 11:13] LABS: Blood Urea Nitrogen 16 mg/dL (8-26); Carbon Dioxide 25 mmol/L (22-30); Chloride 103 mmol/L (98-109); Estimated CRCL calculation 40 ml/min; Estimated Glomerular Filt Rate 39; Glucose 121 mg/dL (70-105); Ionized Calcium (POC) 1.22 mmol/L (1.11-1.31); Potassium 4.5 mmol/L (3.5-4.9); Sodium 138 mmol/L (138-146)
[2023-07-16 11:18] LABS: Basophils Absolute Auto 0.1 K/mm3 (0.0-0.1); Basophils Percent Auto 0.3 % (0.2-1.2); Eosinophils Absolute Auto 0.4 K/mm3 (0-0.3); Eosinophils Percent Auto 2.3 % (0-4.4); Hematocrit 36.3 % (42.0-52.0); Hemoglobin 10.8 g/dL (14.0-18.0); Immature Granulocyte Absolute 0.14 K/mm3 (0.00-0.031); Immature Granulocyte Percent A 0.9 % (0-0.5); Lymphocytes Absolute Auto 9.93 K/mm3 (0.9-3.2); Lymphocytes Percent Auto 63.6 % (18.3-44.2); Mean Corpuscular HGB Conc 29.8 g/dl (32-36); Mean Corpuscular Hemoglobin 25.7 pg (26-34); Mean Corpuscular Volume 86.2 fl (80-100); Mean Platelet Volume 8.5 fl (7.4-10.4); Monocytes Absolute Auto 0.5 K/mm3 (0.1-0.6); Monocytes Percent Auto 3.3 % (2.6-8.5); Neutrophils Absolute Auto 4.6 K/mm3 (1.3-6.7); Neutrophils Percent Auto 29.6 % (45.5-73.1); Platelet Count Result 128 k/mm3 (150-375); Red Blood Count 4.21 M/mm3 (4.6-6.20); Red Cell Distribution Width 16.3 % (11.5-14.5); White Blood Count 15.6 K/mm3 (4.5-10.0)
[2023-07-16 11:30] LABS: Anisocytosis 2+ (NORMAL); Ovalocytes 1+ (NORMAL); Platelet Estimate Decreased (Adequate); Schistocytes None Seen (NORMAL)
[2023-07-16 11:36] VITALS: BP 114/56; PULSE 82; TEMP 36.5; O2SAT 96
[2023-07-16] MEDS: ACETAMINOPHEN 325 MG TABLET 650 MG PO (12:12)
[2023-07-16] MEDS: diphenhydrAMINE HCl INJ 50 MG/ML VIAL 25 MG IV PUSH (12:12)
[2023-07-16 12:27] LABS: Alanine Aminotransferase 20 U/L (6-50); Albumin Level 3.7 g/dL (3.5-5.1); Alkaline Phosphatase 91 U/L (38-126); Anion Gap 9 mmol/L (8-16); Aspartate Amino Transferase 22 U/L (17-59); Bilirubin,Total 0.5 mg/dL (0.2-1.3); Blood Urea Nitrogen 18 mg/dL (9-20); Calcium 9.2 mg/dL (8.4-10.2); Carbon Dioxide 23 mmol/L (22-30); Chloride 104 mmol/L (98-107); Estimated CRCL calculation 45 ml/min; Estimated Glomerular Filt Rate 46; Glucose 122 mg/dL (65-110); Potassium 4.4 mmol/L (3.4-5.0); Sodium 136 mmol/L (137-145)
[2023-07-16 13:53] VITALS: BP 130/70
[2023-07-16] MEDS: HEPARIN SODIUM LOCK FLUSH 500 UNITS/5 ML SYRINGE IV PUSH (13:58)
[2023-07-30 12:59] LABS: Basophils Absolute Auto 0.1 K/mm3 (0.0-0.1); Basophils Percent Auto 0.5 % (0.2-1.2); Eosinophils Absolute Auto 0.2 K/mm3 (0-0.3); Hematocrit 33.2 % (42.0-52.0); Immature Granulocyte Absolute 0.23 K/mm3 (0.00-0.031); Lymphocytes Percent Auto 57.3 % (18.3-44.2); Mean Corpuscular HGB Conc 30.1 g/dl (32-36); Mean Corpuscular Hemoglobin 25.6 pg (26-34); Mean Corpuscular Volume 85.1 fl (80-100); Mean Platelet Volume 8.2 fl (7.4-10.4); Monocytes Absolute Auto 0.8 K/mm3 (0.1-0.6); Monocytes Percent Auto 3.7 % (2.6-8.5); Neutrophils Percent Auto 36.5 % (45.5-73.1); Platelet Count Result 160 k/mm3 (150-375); Red Cell Distribution Width 16.4 % (11.5-14.5)
[2023-07-30 13:03] LABS: Blood Urea Nitrogen 25 mg/dL (8-26); Carbon Dioxide 24 mmol/L (22-30); Chloride 104 mmol/L (98-109); Estimated CRCL calculation 40 ml/min; Estimated Glomerular Filt Rate 39; Glucose 141 mg/dL (70-105); Ionized Calcium (POC) 1.23 mmol/L (1.11-1.31); Potassium 4.9 mmol/L (3.5-4.9); Sodium 139 mmol/L (138-146)
[2023-07-30 13:04] LABS: Atypical Lymphocytes Present; Platelet Estimate Adequate (Adequate); Schistocytes None Seen (NORMAL)
[2023-07-30 13:06] VITALS: BP 116/65; PULSE 83; TEMP 36.6; O2SAT 100
[2023-07-30] MEDS: ACETAMINOPHEN 325 MG TABLET 650 MG PO (13:30)
[2023-07-30] MEDS: diphenhydrAMINE HCl INJ 50 MG/ML VIAL 25 MG IV PUSH (13:31)
[2023-07-30 15:11] VITALS: BP 118/63
[2023-07-30] MEDS: HEPARIN SODIUM LOCK FLUSH 500 UNITS/5 ML SYRINGE IV PUSH (15:14)
[2023-07-30 16:30] LABS: Alanine Aminotransferase 15 U/L (6-50); Albumin Level 3.7 g/dL (3.5-5.1); Alkaline Phosphatase 92 U/L (38-126); Anion Gap 7 mmol/L (8-16); Aspartate Amino Transferase 16 U/L (17-59); Bilirubin,Total 0.4 mg/dL (0.2-1.3); Blood Urea Nitrogen 27 mg/dL (9-20); Calcium 9.3 mg/dL (8.4-10.2); Carbon Dioxide 24 mmol/L (22-30); Chloride 106 mmol/L (98-107); Estimated CRCL calculation 42 ml/min; Estimated Glomerular Filt Rate 42; Glucose 142 mg/dL (65-110); Sodium 137 mmol/L (137-145)
[2023-08-13 13:08] LABS: Basophils Absolute Auto 0.1 K/mm3 (0.0-0.1); Basophils Percent Auto 0.4 % (0.2-1.2); Eosinophils Absolute Auto 0.3 K/mm3 (0-0.3); Eosinophils Percent Auto 1.2 % (0-4.4); Hematocrit 33.6 % (42.0-52.0); Hemoglobin 10.1 g/dL (14.0-18.0); Immature Granulocyte Absolute 0.09 K/mm3 (0.00-0.031); Immature Granulocyte Percent A 0.4 % (0-0.5); Lymphocytes Absolute Auto 12.51 K/mm3 (0.9-3.2); Lymphocytes Percent Auto 62.2 % (18.3-44.2); Mean Corpuscular HGB Conc 30.1 g/dl (32-36); Mean Corpuscular Hemoglobin 25.8 pg (26-34); Mean Corpuscular Volume 85.7 fl (80-100); Mean Platelet Volume 7.6 fl (7.4-10.4); Monocytes Absolute Auto 0.6 K/mm3 (0.1-0.6); Monocytes Percent Auto 2.7 % (2.6-8.5); Neutrophils Absolute Auto 6.6 K/mm3 (1.3-6.7); Neutrophils Percent Auto 33.1 % (45.5-73.1); Platelet Count Result 163 k/mm3 (150-375); Red Blood Count 3.92 M/mm3 (4.6-6.20); Red Cell Distribution Width 16.9 % (11.5-14.5); White Blood Count 20.1 K/mm3 (4.5-10.0)
[2023-08-13 13:11] LABS: Blood Urea Nitrogen 25 mg/dL (8-26); Carbon Dioxide 24 mmol/L (22-30); Chloride 105 mmol/L (98-109); Estimated CRCL calculation 37 ml/min; Estimated Glomerular Filt Rate 37; Glucose 223 mg/dL (70-105); Ionized Calcium (POC) 1.19 mmol/L (1.11-1.31); Potassium 4.6 mmol/L (3.5-4.9); Sodium 139 mmol/L (138-146)
[2023-08-13] MEDS: HEPARIN SODIUM LOCK FLUSH 500 UNITS/5 ML SYRINGE (14:02)
[2023-08-13 16:57] LABS: Alanine Aminotransferase 14 U/L (6-50); Albumin Level 3.8 g/dL (3.5-5.1); Alkaline Phosphatase 84 U/L (38-126); Anion Gap 7 mmol/L (8-16); Aspartate Amino Transferase 17 U/L (17-59); Bilirubin,Total 0.5 mg/dL (0.2-1.3); Blood Urea Nitrogen 26 mg/dL (9-20); Calcium 9.2 mg/dL (8.4-10.2); Carbon Dioxide 23 mmol/L (22-30); Chloride 106 mmol/L (98-107); Estimated CRCL calculation 42 ml/min; Estimated Glomerular Filt Rate 42; Glucose 214 mg/dL (65-110); Potassium 4.8 mmol/L (3.4-5.0); Sodium 136 mmol/L (137-145)
--- NOTE | 2023-08-20 11:00 | PHAR ---
PADCEV DOSE ROUNDED DOWN FROM 123.5 TOP 120 MG TO REDUCE WASTE DUE TO VIAL SIZE (2.9%)
[2023-08-26 11:47] LABS: Basophils Absolute Auto 0.1 K/mm3 (0.0-0.1); Basophils Percent Auto 0.4 % (0.2-1.2); Eosinophils Absolute Auto 0.3 K/mm3 (0-0.3); Eosinophils Percent Auto 1.2 % (0-4.4); Hematocrit 34.9 % (42.0-52.0); Hemoglobin 10.5 g/dL (14.0-18.0); Immature Granulocyte Absolute 0.11 K/mm3 (0.00-0.031); Immature Granulocyte Percent A 0.5 % (0-0.5); Lymphocytes Percent Auto 56.9 % (18.3-44.2); Mean Corpuscular HGB Conc 30.1 g/dl (32-36); Mean Corpuscular Volume 86.4 fl (80-100); Monocytes Absolute Auto 0.8 K/mm3 (0.1-0.6); Monocytes Percent Auto 3.5 % (2.6-8.5); Neutrophils Absolute Auto 8.5 K/mm3 (1.3-6.7); Neutrophils Percent Auto 37.5 % (45.5-73.1); Platelet Count Result 157 k/mm3 (150-375); Red Blood Count 4.04 M/mm3 (4.6-6.20); Red Cell Distribution Width 16.5 % (11.5-14.5); White Blood Count 22.5 K/mm3 (4.5-10.0)
[2023-08-26 11:49] LABS: Atypical Lymphocytes Present; Platelet Estimate Adequate (Adequate); Schistocytes None Seen
[2023-08-26] MEDS: ALTEPLASE 2 MG VIAL (CATHFLO) IV PUSH (11:50)
[2023-08-26 11:53] LABS: Potassium 4.4 mmol/L (3.5-4.9); Sodium 141 mmol/L (138-146)
[2023-08-26 11:54] LABS: Blood Urea Nitrogen 22 mg/dL (8-26); Carbon Dioxide 26 mmol/L (22-30); Chloride 106 mmol/L (98-109); Estimated CRCL calculation 35 ml/min; Estimated Glomerular Filt Rate 35; Glucose 116 mg/dL (70-105); Ionized Calcium (POC) 1.25 mmol/L (1.11-1.31)
[2023-08-26 12:34] VITALS: BP 132/69; PULSE 87; TEMP 36.9; O2SAT 100
[2023-08-26] MEDS: ONDANSETRON INJ 4 MG/2 ML VIAL 8 MG IV PUSH (13:01)
[2023-08-26] MEDS: dexAMETHasone SOD 4 MG/ML INJ 12 MG in SODIUM CHLORIDE 0.9% IV 100 ML 206 MG IVPB (13:06)
--- NOTE | 2023-08-26 13:52 | PC.NURSE ---
Port now with brisk blood return after cathflo use.
[2023-08-26] MEDS: HEPARIN SODIUM LOCK FLUSH 500 UNITS/5 ML SYRINGE IV PUSH (14:25)
[2023-08-26 14:32] VITALS: BP 123/60
[2023-08-26 16:42] LABS: Alanine Aminotransferase 11 U/L (6-50); Albumin Level 3.9 g/dL (3.5-5.1); Alkaline Phosphatase 86 U/L (38-126); Anion Gap 8 mmol/L (4-12); Aspartate Amino Transferase 15 U/L (17-59); Bilirubin,Total 0.4 mg/dL (0.2-1.3); Blood Urea Nitrogen 23 mg/dL (9-20); Calcium 9.5 mg/dL (8.4-10.2); Carbon Dioxide 23 mmol/L (22-30); Chloride 109 mmol/L (98-107); Estimated CRCL calculation 39 ml/min; Estimated Glomerular Filt Rate 39; Glucose 116 mg/dL (65-110); Potassium 4.4 mmol/L (3.4-5.0); Sodium 140 mmol/L (137-145)
[2023-08-27 08:26] LABS: Blood Urea Nitrogen 22 mg/dL (8-26); Carbon Dioxide 26 mmol/L (22-30); Chloride 106 mmol/L (98-109); Estimated CRCL calculation 35 ml/min; Estimated Glomerular Filt Rate 35; Glucose 116 mg/dL (70-105); Ionized Calcium (POC) 1.25 mmol/L (1.11-1.31); Potassium 4.4 mmol/L (3.5-4.9); Sodium 141 mmol/L (138-146)
[2023-09-02 11:24] LABS: Basophils Absolute Auto 0.1 K/mm3 (0.0-0.1); Basophils Percent Auto 0.4 % (0.2-1.2); Eosinophils Absolute Auto 0.3 K/mm3 (0-0.3); Eosinophils Percent Auto 1.5 % (0-4.4); Hemoglobin 10.1 g/dL (14.0-18.0); Immature Granulocyte Absolute 0.15 K/mm3 (0.00-0.031); Immature Granulocyte Percent A 0.7 % (0-0.5); Lymphocytes Absolute Auto 13.41 K/mm3 (0.9-3.2); Lymphocytes Percent Auto 60.5 % (18.3-44.2); Mean Corpuscular HGB Conc 29.7 g/dl (32-36); Mean Corpuscular Hemoglobin 25.4 pg (26-34); Mean Corpuscular Volume 85.4 fl (80-100); Mean Platelet Volume 8.2 fl (7.4-10.4); Monocytes Absolute Auto 0.8 K/mm3 (0.1-0.6); Monocytes Percent Auto 3.7 % (2.6-8.5); Neutrophils Absolute Auto 7.4 K/mm3 (1.3-6.7); Neutrophils Percent Auto 33.2 % (45.5-73.1); Platelet Count Result 152 k/mm3 (150-375); Red Blood Count 3.98 M/mm3 (4.6-6.20); Red Cell Distribution Width 16.7 % (11.5-14.5); White Blood Count 22.2 K/mm3 (4.5-10.0)
[2023-09-02 11:28] LABS: Blood Urea Nitrogen 21 mg/dL (8-26); Carbon Dioxide 25 mmol/L (22-30); Chloride 103 mmol/L (98-109); Estimated CRCL calculation 34 ml/min; Estimated Glomerular Filt Rate 33; Glucose 121 mg/dL (70-105); Ionized Calcium (POC) 1.26 mmol/L (1.11-1.31); Sodium 140 mmol/L (138-146)
[2023-09-02] MEDS: ALTEPLASE 2 MG VIAL (CATHFLO) IV PUSH (11:37)
[2023-09-02 12:29] VITALS: BP 124/64; PULSE 86; TEMP 37.2; O2SAT 100
[2023-09-02] MEDS: ONDANSETRON INJ 4 MG/2 ML VIAL 8 MG IV PUSH (12:47)
[2023-09-02] MEDS: dexAMETHasone SOD 4 MG/ML INJ 12 MG in SODIUM CHLORIDE 0.9% IV 100 ML 206 MG IVPB (12:50)
[2023-09-02] MEDS: HEPARIN SODIUM LOCK FLUSH 500 UNITS/5 ML SYRINGE IV PUSH (14:23)
[2023-09-02 14:27] VITALS: BP 122/67; PULSE 77
[2023-09-02 19:06] LABS: Alanine Aminotransferase 14 U/L (6-50); Albumin Level 3.9 g/dL (3.5-5.1); Alkaline Phosphatase 87 U/L (38-126); Anion Gap 7 mmol/L (4-12); Aspartate Amino Transferase 20 U/L (17-59); Bilirubin,Total 0.6 mg/dL (0.2-1.3); Blood Urea Nitrogen 23 mg/dL (9-20); Calcium 9.6 mg/dL (8.4-10.2); Carbon Dioxide 24 mmol/L (22-30); Chloride 107 mmol/L (98-107); Estimated CRCL calculation 37 ml/min; Estimated Glomerular Filt Rate 37; Glucose 120 mg/dL (65-110); Potassium 4.1 mmol/L (3.4-5.0); Sodium 138 mmol/L (137-145)
[2023-09-09 11:10] LABS: Basophils Absolute Auto 0.1 K/mm3 (0.0-0.1); Basophils Percent Auto 0.4 % (0.2-1.2); Eosinophils Absolute Auto 0.3 K/mm3 (0-0.3); Eosinophils Percent Auto 1.2 % (0-4.4); Hematocrit 34.2 % (42.0-52.0); Hemoglobin 10.3 g/dL (14.0-18.0); Immature Granulocyte Absolute 0.23 K/mm3 (0.00-0.031); Immature Granulocyte Percent A 0.9 % (0-0.5); Lymphocytes Absolute Auto 15.77 K/mm3 (0.9-3.2); Lymphocytes Percent Auto 59.6 % (18.3-44.2); Mean Corpuscular HGB Conc 30.1 g/dl (32-36); Mean Corpuscular Hemoglobin 25.8 pg (26-34); Mean Corpuscular Volume 85.7 fl (80-100); Mean Platelet Volume 8.8 fl (7.4-10.4); Monocytes Absolute Auto 0.9 K/mm3 (0.1-0.6); Monocytes Percent Auto 3.6 % (2.6-8.5); Neutrophils Absolute Auto 9.1 K/mm3 (1.3-6.7); Neutrophils Percent Auto 34.3 % (45.5-73.1); Platelet Count Result 190 k/mm3 (150-375); Red Blood Count 3.99 M/mm3 (4.6-6.20); Red Cell Distribution Width 16.9 % (11.5-14.5); White Blood Count 26.5 K/mm3 (4.5-10.0)
[2023-09-09 11:13] LABS: Blood Urea Nitrogen 23 mg/dL (8-26); Carbon Dioxide 27 mmol/L (22-30); Chloride 104 mmol/L (98-109); Estimated CRCL calculation 29 ml/min; Estimated Glomerular Filt Rate 28; Glucose 145 mg/dL (70-105); Ionized Calcium (POC) 1.26 mmol/L (1.11-1.31); Potassium 4.6 mmol/L (3.5-4.9); Sodium 138 mmol/L (138-146)
[2023-09-09 11:21] VITALS: BP 101/57; PULSE 93; TEMP 36.9; O2SAT 96
[2023-09-09] MEDS: dexAMETHasone SOD 4 MG/ML INJ 12 MG in SODIUM CHLORIDE 0.9% IV 100 ML 206 MG IVPB (11:47)
[2023-09-09] MEDS: ONDANSETRON INJ 4 MG/2 ML VIAL 8 MG IV PUSH (11:47)
[2023-09-09 13:15] VITALS: BP 106/61
[2023-09-09] MEDS: HEPARIN SODIUM LOCK FLUSH 500 UNITS/5 ML SYRINGE IV PUSH (13:19)
[2023-09-09 21:41] LABS: Alanine Aminotransferase 16 U/L (6-50); Alkaline Phosphatase 87 U/L (38-126); Anion Gap 11 mmol/L (4-12); Aspartate Amino Transferase 19 U/L (17-59); Bilirubin,Total 0.6 mg/dL (0.2-1.3); Blood Urea Nitrogen 24 mg/dL (9-20); Calcium 10.5 mg/dL (8.4-10.2); Carbon Dioxide 21 mmol/L (22-30); Chloride 107 mmol/L (98-107); Estimated CRCL calculation 37 ml/min; Estimated Glomerular Filt Rate 37; Glucose 146 mg/dL (65-110); Potassium 4.7 mmol/L (3.4-5.0); Sodium 139 mmol/L (137-145)
[2023-09-23 09:19] LABS: Basophils Absolute Auto 0.1 K/mm3 (0.0-0.1); Basophils Percent Auto 0.4 % (0.2-1.2); Eosinophils Absolute Auto 0.2 K/mm3 (0-0.3); Eosinophils Percent Auto 0.8 % (0-4.4); Hematocrit 33.6 % (42.0-52.0); Hemoglobin 10.2 g/dL (14.0-18.0); Immature Granulocyte Percent A 0.8 % (0-0.5); Lymphocytes Percent Auto 66.9 % (18.3-44.2); Mean Corpuscular HGB Conc 30.4 g/dl (32-36); Mean Corpuscular Volume 85.5 fl (80-100); Mean Platelet Volume 8.3 fl (7.4-10.4); Monocytes Absolute Auto 0.7 K/mm3 (0.1-0.6); Monocytes Percent Auto 2.9 % (2.6-8.5); Neutrophils Absolute Auto 6.7 K/mm3 (1.3-6.7); Neutrophils Percent Auto 28.2 % (45.5-73.1); Platelet Count Result 190 k/mm3 (150-375); Red Blood Count 3.93 M/mm3 (4.6-6.20); White Blood Count 23.8 K/mm3 (4.5-10.0)
[2023-09-23 09:24] LABS: Blood Urea Nitrogen 20 mg/dL (8-26); Carbon Dioxide 26 mmol/L (22-30); Chloride 103 mmol/L (98-109); Estimated CRCL calculation 36 ml/min; Estimated Glomerular Filt Rate 37; Glucose 137 mg/dL (70-105); Ionized Calcium (POC) 1.27 mmol/L (1.11-1.31); Potassium 4.1 mmol/L (3.5-4.9); Sodium 139 mmol/L (138-146)
[2023-09-23 09:49] VITALS: BP 122/64; PULSE 96; TEMP 36; O2SAT 97
[2023-09-23 10:07] LABS: Alanine Aminotransferase 16 U/L (6-50); Alkaline Phosphatase 87 U/L (38-126); Anion Gap 6 mmol/L (4-12); Aspartate Amino Transferase 20 U/L (17-59); Bilirubin,Total 0.4 mg/dL (0.2-1.3); Blood Urea Nitrogen 22 mg/dL (9-20); Calcium 9.8 mg/dL (8.4-10.2); Carbon Dioxide 25 mmol/L (22-30); Chloride 106 mmol/L (98-107); Estimated CRCL calculation 39 ml/min; Estimated Glomerular Filt Rate 39; Glucose 134 mg/dL (65-110); Potassium 4.1 mmol/L (3.4-5.0); Sodium 137 mmol/L (137-145)
[2023-09-23] MEDS: ONDANSETRON INJ 4 MG/2 ML VIAL 8 MG IV PUSH (10:10)
[2023-09-23] MEDS: dexAMETHasone SOD 4 MG/ML INJ 12 MG in SODIUM CHLORIDE 0.9% IV 100 ML 206 MG IVPB (10:12)
[2023-09-23] MEDS: HEPARIN SODIUM LOCK FLUSH 500 UNITS/5 ML SYRINGE IV PUSH (11:37)
[2023-09-23 11:43] VITALS: BP 120/64
[2023-09-30 11:09] LABS: Basophils Absolute Auto 0.1 K/mm3 (0.0-0.1); Basophils Percent Auto 0.4 % (0.2-1.2); Eosinophils Absolute Auto 0.1 K/mm3 (0-0.3); Eosinophils Percent Auto 0.5 % (0-4.4); Hematocrit 34.2 % (42.0-52.0); Hemoglobin 10.3 g/dL (14.0-18.0); Immature Granulocyte Absolute 0.17 K/mm3 (0.00-0.031); Immature Granulocyte Percent A 0.8 % (0-0.5); Lymphocytes Absolute Auto 14.53 K/mm3 (0.9-3.2); Lymphocytes Percent Auto 64.4 % (18.3-44.2); Mean Corpuscular HGB Conc 30.1 g/dl (32-36); Mean Corpuscular Hemoglobin 25.8 pg (26-34); Mean Corpuscular Volume 85.5 fl (80-100); Mean Platelet Volume 8.2 fl (7.4-10.4); Monocytes Absolute Auto 0.7 K/mm3 (0.1-0.6); Monocytes Percent Auto 3.2 % (2.6-8.5); Neutrophils Absolute Auto 6.9 K/mm3 (1.3-6.7); Neutrophils Percent Auto 30.7 % (45.5-73.1); Platelet Count Result 164 k/mm3 (150-375); Red Cell Distribution Width 18.2 % (11.5-14.5); White Blood Count 22.6 K/mm3 (4.5-10.0)
[2023-09-30 11:14] LABS: Blood Urea Nitrogen 19 mg/dL (8-26); Carbon Dioxide 24 mmol/L (22-30); Chloride 102 mmol/L (98-109); Estimated CRCL calculation 36 ml/min; Estimated Glomerular Filt Rate 37; Glucose 169 mg/dL (70-105); Ionized Calcium (POC) 1.31 mmol/L (1.11-1.31); Potassium 4.2 mmol/L (3.5-4.9); Sodium 139 mmol/L (138-146)
[2023-09-30 11:20] VITALS: BP 120/71; PULSE 88; TEMP 36.5; O2SAT 98
[2023-09-30] MEDS: dexAMETHasone SOD 4 MG/ML INJ 12 MG in SODIUM CHLORIDE 0.9% IV 100 ML 206 MG IVPB (11:34)
[2023-09-30] MEDS: ONDANSETRON INJ 4 MG/2 ML VIAL 8 MG IV PUSH (11:34)
[2023-09-30 12:18] LABS: Alanine Aminotransferase 18 U/L (6-50); Albumin Level 4.1 g/dL (3.5-5.1); Alkaline Phosphatase 82 U/L (38-126); Anion Gap 10 mmol/L (4-12); Aspartate Amino Transferase 24 U/L (17-59); Bilirubin,Total 0.6 mg/dL (0.2-1.3); Blood Urea Nitrogen 21 mg/dL (9-20); Calcium 10.2 mg/dL (8.4-10.2); Carbon Dioxide 24 mmol/L (22-30); Chloride 105 mmol/L (98-107); Estimated CRCL calculation 38 ml/min; Estimated Glomerular Filt Rate 39; Glucose 168 mg/dL (65-110); Potassium 4.2 mmol/L (3.4-5.0); Sodium 139 mmol/L (137-145)
[2023-09-30] MEDS: HEPARIN SODIUM LOCK FLUSH 500 UNITS/5 ML SYRINGE IV PUSH (13:15)
[2023-10-07 11:40] LABS: Basophils Absolute Auto 0.1 K/mm3 (0.0-0.1); Basophils Percent Auto 0.4 % (0.2-1.2); Eosinophils Absolute Auto 0.2 K/mm3 (0-0.3); Eosinophils Percent Auto 0.6 % (0-4.4); Hematocrit 32.7 % (42.0-52.0); Hemoglobin 9.9 g/dL (14.0-18.0); Immature Granulocyte Absolute 0.23 K/mm3 (0.00-0.031); Immature Granulocyte Percent A 0.9 % (0-0.5); Lymphocytes Absolute Auto 16.36 K/mm3 (0.9-3.2); Lymphocytes Percent Auto 63.2 % (18.3-44.2); Mean Corpuscular HGB Conc 30.3 g/dl (32-36); Mean Corpuscular Hemoglobin 26.1 pg (26-34); Mean Corpuscular Volume 86.3 fl (80-100); Mean Platelet Volume 8.5 fl (7.4-10.4); Monocytes Absolute Auto 0.9 K/mm3 (0.1-0.6); Monocytes Percent Auto 3.4 % (2.6-8.5); Neutrophils Absolute Auto 8.2 K/mm3 (1.3-6.7); Neutrophils Percent Auto 31.5 % (45.5-73.1); Platelet Count Result 178 k/mm3 (150-375); Red Blood Count 3.79 M/mm3 (4.6-6.20); Red Cell Distribution Width 18.7 % (11.5-14.5); White Blood Count 25.9 K/mm3 (4.5-10.0)
[2023-10-07 11:40] LABS: Blood Urea Nitrogen 17 mg/dL (8-26); Carbon Dioxide 22 mmol/L (22-30); Chloride 104 mmol/L (98-109); Estimated CRCL calculation 32 ml/min; Estimated Glomerular Filt Rate 37; Glucose 146 mg/dL (70-105); Ionized Calcium (POC) 1.17 mmol/L (1.11-1.31); Potassium 4.3 mmol/L (3.5-4.9); Sodium 137 mmol/L (138-146)
[2023-10-07 11:56] VITALS: BP 122/69; PULSE 94; TEMP 36.6; O2SAT 100
[2023-10-07] MEDS: ONDANSETRON INJ 4 MG/2 ML VIAL 8 MG IV PUSH (12:06)
[2023-10-07] MEDS: dexAMETHasone SOD 4 MG/ML INJ 12 MG in SODIUM CHLORIDE 0.9% IV 100 ML 206 MG IVPB (12:16)
[2023-10-07] MEDS: EPOETIN ALFA-EPBX 10,000 UNITS/ML VIAL 20000 UNITS SUB-Q (12:18)
[2023-10-07 12:43] LABS: Hypochromasia 1+; Platelet Estimate Adequate (Adequate); Schistocytes None Seen
[2023-10-07 12:44] LABS: Smudge Cells PRESENT
[2023-10-07 13:18] LABS: Alanine Aminotransferase 25 U/L (6-50); Alkaline Phosphatase 76 U/L (38-126); Anion Gap 6 mmol/L (4-12); Aspartate Amino Transferase 26 U/L (17-59); Bilirubin,Total 0.7 mg/dL (0.2-1.3); Blood Urea Nitrogen 19 mg/dL (9-20); Calcium 9.3 mg/dL (8.4-10.2); Carbon Dioxide 23 mmol/L (22-30); Chloride 104 mmol/L (98-107); Estimated CRCL calculation 34 ml/min; Estimated Glomerular Filt Rate 39; Glucose 147 mg/dL (65-110); Potassium 4.3 mmol/L (3.4-5.0); Sodium 133 mmol/L (137-145)
[2023-10-07] MEDS: HEPARIN SODIUM LOCK FLUSH 500 UNITS/5 ML SYRINGE IV PUSH (13:56)
[2023-10-07 14:04] VITALS: BP 124/61
[2023-10-22 11:07] LABS: Basophils Absolute Auto 0.1 K/mm3 (0.0-0.1); Basophils Percent Auto 0.4 % (0.2-1.2); Eosinophils Absolute Auto 0.1 K/mm3 (0-0.3); Eosinophils Percent Auto 0.4 % (0-4.4); Hematocrit 33.5 % (42.0-52.0); Hemoglobin 10.2 g/dL (14.0-18.0); Immature Granulocyte Absolute 0.09 K/mm3 (0.00-0.031); Immature Granulocyte Percent A 0.4 % (0-0.5); Lymphocytes Absolute Auto 14.46 K/mm3 (0.9-3.2); Lymphocytes Percent Auto 68.6 % (18.3-44.2); Mean Corpuscular HGB Conc 30.4 g/dl (32-36); Mean Corpuscular Hemoglobin 26.4 pg (26-34); Mean Corpuscular Volume 86.6 fl (80-100); Mean Platelet Volume 7.8 fl (7.4-10.4); Monocytes Absolute Auto 0.9 K/mm3 (0.1-0.6); Monocytes Percent Auto 4.2 % (2.6-8.5); Neutrophils Absolute Auto 5.5 K/mm3 (1.3-6.7); Platelet Count Result 179 k/mm3 (150-375); Red Blood Count 3.87 M/mm3 (4.6-6.20); Red Cell Distribution Width 19.9 % (11.5-14.5); White Blood Count 21.1 K/mm3 (4.5-10.0)
[2023-10-22 11:11] LABS: Blood Urea Nitrogen 18 mg/dL (8-26); Carbon Dioxide 23 mmol/L (22-30); Chloride 105 mmol/L (98-109); Estimated CRCL calculation 32 ml/min; Estimated Glomerular Filt Rate 37; Glucose 139 mg/dL (70-105); Ionized Calcium (POC) 1.26 mmol/L (1.11-1.31); Potassium 4.5 mmol/L (3.5-4.9); Sodium 139 mmol/L (138-146)
[2023-10-22 11:52] VITALS: BP 119/58; PULSE 91; TEMP 36.3; O2SAT 100
[2023-10-22] MEDS: ONDANSETRON INJ 4 MG/2 ML VIAL 8 MG IV PUSH (12:11)
[2023-10-22] MEDS: dexAMETHasone SOD 4 MG/ML INJ 12 MG in SODIUM CHLORIDE 0.9% IV 100 ML 206 MG IVPB (12:11)
[2023-10-22 12:50] LABS: Alanine Aminotransferase 18 U/L (6-50); Albumin Level 3.8 g/dL (3.5-5.1); Alkaline Phosphatase 81 U/L (38-126); Anion Gap 9 mmol/L (4-12); Aspartate Amino Transferase 18 U/L (17-59); Bilirubin,Total 0.4 mg/dL (0.2-1.3); Blood Urea Nitrogen 18 mg/dL (9-20); Calcium 9.2 mg/dL (8.4-10.2); Carbon Dioxide 21 mmol/L (22-30); Chloride 107 mmol/L (98-107); Estimated CRCL calculation 34 ml/min; Estimated Glomerular Filt Rate 39; Glucose 135 mg/dL (65-110); Potassium 4.5 mmol/L (3.4-5.0); Sodium 137 mmol/L (137-145)
[2023-10-22] MEDS: HEPARIN SODIUM LOCK FLUSH 500 UNITS/5 ML SYRINGE IV PUSH (14:45)
[2023-10-29 09:59] LABS: Basophils Absolute Auto 0.1 K/mm3 (0.0-0.1); Basophils Percent Auto 0.4 % (0.2-1.2); Eosinophils Absolute Auto 0.1 K/mm3 (0-0.3); Eosinophils Percent Auto 0.6 % (0-4.4); Hematocrit 33.5 % (42.0-52.0); Hemoglobin 10.4 g/dL (14.0-18.0); Immature Granulocyte Absolute 0.16 K/mm3 (0.00-0.031); Immature Granulocyte Percent A 0.8 % (0-0.5); Lymphocytes Absolute Auto 12.56 K/mm3 (0.9-3.2); Lymphocytes Percent Auto 63.2 % (18.3-44.2); Mean Corpuscular Hemoglobin 26.6 pg (26-34); Mean Corpuscular Volume 85.7 fl (80-100); Mean Platelet Volume 8.7 fl (7.4-10.4); Monocytes Absolute Auto 0.8 K/mm3 (0.1-0.6); Monocytes Percent Auto 4.2 % (2.6-8.5); Neutrophils Absolute Auto 6.1 K/mm3 (1.3-6.7); Neutrophils Percent Auto 30.8 % (45.5-73.1); Platelet Count Result 176 k/mm3 (150-375); Red Blood Count 3.91 M/mm3 (4.6-6.20); Red Cell Distribution Width 19.3 % (11.5-14.5); White Blood Count 19.9 K/mm3 (4.5-10.0)
[2023-10-29 10:02] LABS: Blood Urea Nitrogen 18 mg/dL (8-26); Carbon Dioxide 26 mmol/L (22-30); Chloride 101 mmol/L (98-109); Estimated CRCL calculation 31 ml/min; Estimated Glomerular Filt Rate 35; Glucose 131 mg/dL (70-105); Ionized Calcium (POC) 1.22 mmol/L (1.11-1.31); Potassium 4.5 mmol/L (3.5-4.9); Sodium 138 mmol/L (138-146)
[2023-10-29 10:08] VITALS: BP 115/60; PULSE 86; TEMP 35.9; O2SAT 99
[2023-10-29] MEDS: dexAMETHasone SOD 4 MG/ML INJ 12 MG in SODIUM CHLORIDE 0.9% IV 100 ML 206 MG IVPB (10:27)
[2023-10-29] MEDS: ONDANSETRON INJ 4 MG/2 ML VIAL 8 MG IV PUSH (10:27)
[2023-10-29] MEDS: HEPARIN SODIUM LOCK FLUSH 500 UNITS/5 ML SYRINGE IV PUSH (11:56)
[2023-10-29 12:45] LABS: Alanine Aminotransferase 18 U/L (6-50); Alkaline Phosphatase 84 U/L (38-126); Anion Gap 10 mmol/L (4-12); Aspartate Amino Transferase 21 U/L (17-59); Bilirubin,Total 0.6 mg/dL (0.2-1.3); Blood Urea Nitrogen 20 mg/dL (9-20); Calcium 9.5 mg/dL (8.4-10.2); Carbon Dioxide 24 mmol/L (22-30); Chloride 103 mmol/L (98-107); Estimated CRCL calculation 34 ml/min; Estimated Glomerular Filt Rate 39; Glucose 130 mg/dL (65-110); Potassium 4.5 mmol/L (3.4-5.0); Sodium 137 mmol/L (137-145)
[2023-11-05 09:11] LABS: Basophils Absolute Auto 0.1 K/mm3 (0.0-0.1); Basophils Percent Auto 0.4 % (0.2-1.2); Eosinophils Absolute Auto 0.3 K/mm3 (0-0.3); Eosinophils Percent Auto 1.3 % (0-4.4); Hematocrit 35.1 % (42.0-52.0); Hemoglobin 10.6 g/dL (14.0-18.0); Immature Granulocyte Absolute 0.22 K/mm3 (0.00-0.031); Immature Granulocyte Percent A 0.9 % (0-0.5); Lymphocytes Percent Auto 58.9 % (18.3-44.2); Mean Corpuscular HGB Conc 30.2 g/dl (32-36); Mean Corpuscular Hemoglobin 26.4 pg (26-34); Mean Corpuscular Volume 87.3 fl (80-100); Mean Platelet Volume 8.4 fl (7.4-10.4); Monocytes Absolute Auto 0.8 K/mm3 (0.1-0.6); Monocytes Percent Auto 3.5 % (2.6-8.5); Neutrophils Absolute Auto 8.2 K/mm3 (1.3-6.7); Platelet Count Result 189 k/mm3 (150-375); Red Blood Count 4.02 M/mm3 (4.6-6.20); White Blood Count 23.4 K/mm3 (4.5-10.0)
[2023-11-05 09:15] VITALS: BP 101/53; PULSE 95; TEMP 36.4; O2SAT 100
[2023-11-05 09:18] LABS: Blood Urea Nitrogen 16 mg/dL (8-26); Carbon Dioxide 26 mmol/L (22-30); Chloride 101 mmol/L (98-109); Estimated CRCL calculation 32 ml/min; Estimated Glomerular Filt Rate 37; Glucose 148 mg/dL (70-105); Ionized Calcium (POC) 1.18 mmol/L (1.11-1.31); Potassium 4.2 mmol/L (3.5-4.9); Sodium 137 mmol/L (138-146)
[2023-11-05] MEDS: SODIUM CHLORIDE 0.9% IV 1,000 ML 500 ML IV CONT (09:35)
[2023-11-05 10:28] LABS: Alanine Aminotransferase 18 U/L (6-50); Albumin Level 3.9 g/dL (3.5-5.1); Alkaline Phosphatase 77 U/L (38-126); Anion Gap 9 mmol/L (4-12); Aspartate Amino Transferase 25 U/L (17-59); Bilirubin,Total 0.6 mg/dL (0.2-1.3); Blood Urea Nitrogen 16 mg/dL (9-20); Calcium 9.4 mg/dL (8.4-10.2); Carbon Dioxide 23 mmol/L (22-30); Chloride 104 mmol/L (98-107); Estimated CRCL calculation 36 ml/min; Estimated Glomerular Filt Rate 42; Glucose 142 mg/dL (65-110); Potassium 4.3 mmol/L (3.4-5.0); Sodium 136 mmol/L (137-145)
[2023-11-05] MEDS: HEPARIN SODIUM LOCK FLUSH 500 UNITS/5 ML SYRINGE IV PUSH (11:54)
[2023-11-05 11:59] VITALS: BP 133/69
[2023-11-12 12:41] LABS: Basophils Absolute Auto 0.1 K/mm3 (0.0-0.1); Basophils Percent Auto 0.3 % (0.2-1.2); Eosinophils Absolute Auto 0.2 K/mm3 (0-0.3); Eosinophils Percent Auto 0.9 % (0-4.4); Hematocrit 32.4 % (42.0-52.0); Immature Granulocyte Absolute 0.11 K/mm3 (0.00-0.031); Immature Granulocyte Percent A 0.5 % (0-0.5); Lymphocytes Absolute Auto 12.07 K/mm3 (0.9-3.2); Lymphocytes Percent Auto 58.6 % (18.3-44.2); Mean Corpuscular HGB Conc 30.9 g/dl (32-36); Mean Corpuscular Hemoglobin 26.7 pg (26-34); Mean Corpuscular Volume 86.4 fl (80-100); Mean Platelet Volume 8.4 fl (7.4-10.4); Monocytes Absolute Auto 0.7 K/mm3 (0.1-0.6); Monocytes Percent Auto 3.3 % (2.6-8.5); Neutrophils Absolute Auto 7.5 K/mm3 (1.3-6.7); Neutrophils Percent Auto 36.4 % (45.5-73.1); Platelet Count Result 182 k/mm3 (150-375); Red Blood Count 3.75 M/mm3 (4.6-6.20); Red Cell Distribution Width 18.9 % (11.5-14.5); White Blood Count 20.6 K/mm3 (4.5-10.0)
[2023-11-12 12:45] LABS: Blood Urea Nitrogen 14 mg/dL (8-26); Carbon Dioxide 27 mmol/L (22-30); Chloride 102 mmol/L (98-109); Estimated CRCL calculation 38 ml/min; Estimated Glomerular Filt Rate 45; Glucose 171 mg/dL (70-105); Ionized Calcium (POC) 1.19 mmol/L (1.11-1.31); Potassium 4.2 mmol/L (3.5-4.9); Sodium 139 mmol/L (138-146)
[2023-11-12 12:48] VITALS: BP 143/75; PULSE 91; TEMP 36.2; O2SAT 97
[2023-11-12] MEDS: dexAMETHasone SOD 4 MG/ML INJ 12 MG in SODIUM CHLORIDE 0.9% IV 100 ML 206 MG IVPB (13:15)
[2023-11-12] MEDS: ONDANSETRON INJ 4 MG/2 ML VIAL 8 MG IV PUSH (13:15)
[2023-11-12 14:19] LABS: Alanine Aminotransferase 16 U/L (6-50); Albumin Level 3.8 g/dL (3.5-5.1); Alkaline Phosphatase 80 U/L (38-126); Anion Gap 8 mmol/L (4-12); Aspartate Amino Transferase 78 U/L (17-59); Bilirubin,Total 0.5 mg/dL (0.2-1.3); Blood Urea Nitrogen 16 mg/dL (9-20); Calcium 9.1 mg/dL (8.4-10.2); Carbon Dioxide 26 mmol/L (22-30); Chloride 105 mmol/L (98-107); Estimated CRCL calculation 41 ml/min; Estimated Glomerular Filt Rate 49; Glucose 166 mg/dL (65-110); Potassium 4.1 mmol/L (3.4-5.0); Sodium 139 mmol/L (137-145)
[2023-11-12 14:36] VITALS: BP 132/76
[2023-11-12] MEDS: HEPARIN SODIUM LOCK FLUSH 500 UNITS/5 ML SYRINGE IV PUSH (14:37)
[2023-11-19 08:34] LABS: Basophils Absolute Auto 0.1 K/mm3 (0.0-0.1); Basophils Percent Auto 0.4 % (0.2-1.2); Eosinophils Absolute Auto 0.2 K/mm3 (0-0.3); Eosinophils Percent Auto 0.8 % (0-4.4); Hematocrit 35.2 % (42.0-52.0); Hemoglobin 10.7 g/dL (14.0-18.0); Immature Granulocyte Absolute 0.12 K/mm3 (0.00-0.031); Immature Granulocyte Percent A 0.5 % (0-0.5); Lymphocytes Absolute Auto 14.11 K/mm3 (0.9-3.2); Lymphocytes Percent Auto 62.7 % (18.3-44.2); Mean Corpuscular HGB Conc 30.4 g/dl (32-36); Mean Corpuscular Hemoglobin 26.3 pg (26-34); Mean Corpuscular Volume 86.5 fl (80-100); Mean Platelet Volume 7.9 fl (7.4-10.4); Monocytes Absolute Auto 1.3 K/mm3 (0.1-0.6); Monocytes Percent Auto 5.6 % (2.6-8.5); Neutrophils Absolute Auto 6.8 K/mm3 (1.3-6.7); Platelet Count Result 194 k/mm3 (150-375); Red Blood Count 4.07 M/mm3 (4.6-6.20); Red Cell Distribution Width 18.7 % (11.5-14.5); White Blood Count 22.5 K/mm3 (4.5-10.0)
--- NOTE | 2023-11-19 08:36 | PC.NURSE ---
Retacrit held due to hemoglobulin of 10.7
[2023-11-19 08:41] LABS: Blood Urea Nitrogen 13 mg/dL (8-26); Carbon Dioxide 25 mmol/L (22-30); Chloride 105 mmol/L (98-109); Estimated CRCL calculation 38 ml/min; Estimated Glomerular Filt Rate 45; Glucose 128 mg/dL (70-105); Potassium 3.7 mmol/L (3.5-4.9); Sodium 140 mmol/L (138-146)
[2023-11-19 11:54] LABS: Iron 40 ug/dL (49-181)
[2023-11-19 11:58] LABS: Alanine Aminotransferase 8 U/L (6-50); Albumin Level 4.1 g/dL (3.5-5.1); Alkaline Phosphatase 76 U/L (38-126); Anion Gap 12 mmol/L (4-12); Aspartate Amino Transferase 21 U/L (17-59); Bilirubin,Total 0.6 mg/dL (0.2-1.3); Blood Urea Nitrogen 15 mg/dL (9-20); Calcium 9.1 mg/dL (8.4-10.2); Carbon Dioxide 23 mmol/L (22-30); Chloride 106 mmol/L (98-107); Estimated CRCL calculation 41 ml/min; Estimated Glomerular Filt Rate 49; Glucose 129 mg/dL (65-110); Potassium 3.8 mmol/L (3.4-5.0); Sodium 141 mmol/L (137-145)
[2023-11-19 12:04] LABS: Percent Iron Saturation 14 % (20-50)
[2023-11-19 13:04] LABS: Folic Acid 5.5 ng/mL (2.76->20); Vitamin B12 > 1000.0 pg/mL (239-931)
[2023-11-26 11:21] LABS: Basophils Absolute Auto 0.1 K/mm3 (0.0-0.1); Basophils Percent Auto 0.3 % (0.2-1.2); Eosinophils Absolute Auto 0.3 K/mm3 (0-0.3); Eosinophils Percent Auto 1.3 % (0-4.4); Hematocrit 33.7 % (42.0-52.0); Hemoglobin 10.3 g/dL (14.0-18.0); Immature Granulocyte Absolute 0.11 K/mm3 (0.00-0.031); Immature Granulocyte Percent A 0.5 % (0-0.5); Lymphocytes Absolute Auto 12.77 K/mm3 (0.9-3.2); Lymphocytes Percent Auto 58.8 % (18.3-44.2); Mean Corpuscular HGB Conc 30.6 g/dl (32-36); Mean Corpuscular Hemoglobin 26.5 pg (26-34); Mean Corpuscular Volume 86.6 fl (80-100); Mean Platelet Volume 7.9 fl (7.4-10.4); Monocytes Absolute Auto 0.7 K/mm3 (0.1-0.6); Monocytes Percent Auto 3.4 % (2.6-8.5); Neutrophils Absolute Auto 7.8 K/mm3 (1.3-6.7); Neutrophils Percent Auto 35.7 % (45.5-73.1); Platelet Count Result 172 k/mm3 (150-375); Red Blood Count 3.89 M/mm3 (4.6-6.20); Red Cell Distribution Width 18.5 % (11.5-14.5); White Blood Count 21.7 K/mm3 (4.5-10.0)
[2023-11-26 11:26] LABS: Blood Urea Nitrogen 17 mg/dL (8-26); Carbon Dioxide 23 mmol/L (22-30); Chloride 105 mmol/L (98-109); Estimated CRCL calculation 34 ml/min; Estimated Glomerular Filt Rate 39; Glucose 165 mg/dL (70-105); Ionized Calcium (POC) 1.23 mmol/L (1.11-1.31); Potassium 3.7 mmol/L (3.5-4.9); Sodium 142 mmol/L (138-146)
[2023-11-26 11:31] VITALS: BP 127/78; PULSE 90; TEMP 36.4; O2SAT 99
[2023-11-26] MEDS: ONDANSETRON INJ 4 MG/2 ML VIAL 8 MG IV PUSH (11:51)
[2023-11-26] MEDS: dexAMETHasone SOD 4 MG/ML INJ 12 MG in SODIUM CHLORIDE 0.9% IV 100 ML 206 MG IVPB (11:51)
[2023-11-26 12:55] LABS: Alanine Aminotransferase 12 U/L (6-50); Alkaline Phosphatase 79 U/L (38-126); Anion Gap 7 mmol/L (4-12); Aspartate Amino Transferase 17 U/L (17-59); Bilirubin,Total 0.5 mg/dL (0.2-1.3); Blood Urea Nitrogen 19 mg/dL (9-20); Calcium 9.4 mg/dL (8.4-10.2); Carbon Dioxide 26 mmol/L (22-30); Chloride 108 mmol/L (98-107); Estimated CRCL calculation 38 ml/min; Estimated Glomerular Filt Rate 45; Glucose 160 mg/dL (65-110); Potassium 3.7 mmol/L (3.4-5.0); Sodium 141 mmol/L (137-145)
[2023-11-26 13:19] VITALS: BP 139/69
[2023-11-26] MEDS: HEPARIN SODIUM LOCK FLUSH 500 UNITS/5 ML SYRINGE IV PUSH (13:23)
[2023-12-03 13:06] LABS: Basophils Absolute Auto 0.1 K/mm3 (0.0-0.1); Basophils Percent Auto 0.3 % (0.2-1.2); Eosinophils Absolute Auto 0.3 K/mm3 (0-0.3); Eosinophils Percent Auto 1.3 % (0-4.4); Hemoglobin 10.5 g/dL (14.0-18.0); Immature Granulocyte Absolute 0.12 K/mm3 (0.00-0.031); Immature Granulocyte Percent A 0.5 % (0-0.5); Lymphocytes Absolute Auto 12.83 K/mm3 (0.9-3.2); Lymphocytes Percent Auto 55.8 % (18.3-44.2); Mean Corpuscular Hemoglobin 25.9 pg (26-34); Mean Corpuscular Volume 86.4 fl (80-100); Mean Platelet Volume 7.9 fl (7.4-10.4); Monocytes Absolute Auto 0.9 K/mm3 (0.1-0.6); Monocytes Percent Auto 3.9 % (2.6-8.5); Neutrophils Absolute Auto 8.8 K/mm3 (1.3-6.7); Neutrophils Percent Auto 38.2 % (45.5-73.1); Platelet Count Result 194 k/mm3 (150-375); Red Blood Count 4.05 M/mm3 (4.6-6.20); Red Cell Distribution Width 17.9 % (11.5-14.5)
[2023-12-03 13:10] LABS: Blood Urea Nitrogen 22 mg/dL (8-26); Carbon Dioxide 23 mmol/L (22-30); Chloride 106 mmol/L (98-109); Estimated CRCL calculation 29 ml/min; Estimated Glomerular Filt Rate 33; Glucose 136 mg/dL (70-105); Potassium 4.3 mmol/L (3.5-4.9); Sodium 141 mmol/L (138-146)
[2023-12-03 13:11] VITALS: BP 158/83; PULSE 98; TEMP 36.1; O2SAT 97
[2023-12-03] MEDS: dexAMETHasone SOD 4 MG/ML INJ 12 MG in SODIUM CHLORIDE 0.9% IV 100 ML 206 MG IVPB (13:50)
[2023-12-03] MEDS: ONDANSETRON INJ 4 MG/2 ML VIAL 8 MG IV PUSH (13:50)
[2023-12-03 13:52] LABS: Alanine Aminotransferase 12 U/L (6-50); Albumin Level 4.1 g/dL (3.5-5.1); Alkaline Phosphatase 71 U/L (38-126); Anion Gap 13 mmol/L (4-12); Aspartate Amino Transferase 23 U/L (17-59); Bilirubin,Total 0.6 mg/dL (0.2-1.3); Blood Urea Nitrogen 23 mg/dL (9-20); Calcium 9.9 mg/dL (8.4-10.2); Carbon Dioxide 24 mmol/L (22-30); Chloride 104 mmol/L (98-107); Estimated CRCL calculation 31 ml/min; Estimated Glomerular Filt Rate 35; Glucose 134 mg/dL (65-110); Potassium 4.3 mmol/L (3.4-5.0); Sodium 141 mmol/L (137-145)
[2023-12-03] MEDS: HEPARIN SODIUM LOCK FLUSH 500 UNITS/5 ML SYRINGE IV PUSH (15:14)
[2023-12-10 11:29] LABS: Basophils Absolute Auto 0.1 K/mm3 (0.0-0.1); Basophils Percent Auto 0.3 % (0.2-1.2); Eosinophils Absolute Auto 0.2 K/mm3 (0-0.3); Hematocrit 33.4 % (42.0-52.0); Hemoglobin 9.7 g/dL (14.0-18.0); Immature Granulocyte Absolute 0.12 K/mm3 (0.00-0.031); Immature Granulocyte Percent A 0.5 % (0-0.5); Lymphocytes Absolute Auto 12.11 K/mm3 (0.9-3.2); Lymphocytes Percent Auto 52.3 % (18.3-44.2); Mean Corpuscular Hemoglobin 26.1 pg (26-34); Mean Platelet Volume 8.5 fl (7.4-10.4); Monocytes Absolute Auto 2.1 K/mm3 (0.1-0.6); Neutrophils Absolute Auto 8.5 K/mm3 (1.3-6.7); Neutrophils Percent Auto 36.9 % (45.5-73.1); Platelet Count Result 190 k/mm3 (150-375); Red Blood Count 3.71 M/mm3 (4.6-6.20); Red Cell Distribution Width 17.3 % (11.5-14.5); White Blood Count 23.2 K/mm3 (4.5-10.0)
[2023-12-10 11:34] LABS: Blood Urea Nitrogen 24 mg/dL (8-26); Carbon Dioxide 20 mmol/L (22-30); Chloride 110 mmol/L (98-109); Estimated CRCL calculation 27 ml/min; Estimated Glomerular Filt Rate 29; Glucose 189 mg/dL (70-105); Ionized Calcium (POC) 1.17 mmol/L (1.11-1.31); Potassium 3.8 mmol/L (3.5-4.9); Sodium 143 mmol/L (138-146)
[2023-12-10 11:43] VITALS: BP 137/80; PULSE 93; TEMP 36.6; O2SAT 99
[2023-12-10 11:59] LABS: Alanine Aminotransferase 14 U/L (6-50); Albumin Level 3.9 g/dL (3.5-5.1); Alkaline Phosphatase 70 U/L (38-126); Anion Gap 13 mmol/L (4-12); Aspartate Amino Transferase 88 U/L (17-59); Bilirubin,Total 0.8 mg/dL (0.2-1.3); Blood Urea Nitrogen 26 mg/dL (9-20); Calcium 9.7 mg/dL (8.4-10.2); Carbon Dioxide 21 mmol/L (22-30); Chloride 108 mmol/L (98-107); Estimated CRCL calculation 29 ml/min; Estimated Glomerular Filt Rate 33; Glucose 186 mg/dL (65-110); Potassium 3.8 mmol/L (3.4-5.0); Sodium 142 mmol/L (137-145)
[2023-12-10] MEDS: ONDANSETRON INJ 4 MG/2 ML VIAL 8 MG IV PUSH (12:05)
[2023-12-10] MEDS: dexAMETHasone SOD 4 MG/ML INJ 12 MG in SODIUM CHLORIDE 0.9% IV 100 ML 206 MG IVPB (12:12)
[2023-12-17 08:54] LABS: Basophils Absolute Auto 0.1 K/mm3 (0.0-0.1); Basophils Percent Auto 0.3 % (0.2-1.2); Eosinophils Absolute Auto 0.4 K/mm3 (0-0.3); Eosinophils Percent Auto 1.2 % (0-4.4); Hematocrit 32.4 % (42.0-52.0); Hemoglobin 9.9 g/dL (14.0-18.0); Immature Granulocyte Absolute 0.19 K/mm3 (0.00-0.031); Immature Granulocyte Percent A 0.7 % (0-0.5); Lymphocytes Absolute Auto 17.43 K/mm3 (0.9-3.2); Lymphocytes Percent Auto 60.3 % (18.3-44.2); Mean Corpuscular HGB Conc 30.6 g/dl (32-36); Mean Corpuscular Hemoglobin 26.2 pg (26-34); Mean Corpuscular Volume 85.7 fl (80-100); Mean Platelet Volume 8.3 fl (7.4-10.4); Monocytes Absolute Auto 1.1 K/mm3 (0.1-0.6); Monocytes Percent Auto 3.9 % (2.6-8.5); Neutrophils Absolute Auto 9.7 K/mm3 (1.3-6.7); Neutrophils Percent Auto 33.6 % (45.5-73.1); Platelet Count Result 216 k/mm3 (150-375); Red Blood Count 3.78 M/mm3 (4.6-6.20); Red Cell Distribution Width 17.2 % (11.5-14.5); White Blood Count 28.9 K/mm3 (4.5-10.0)
[2023-12-17 09:18] VITALS: BP 141/79; PULSE 96; TEMP 36.4; O2SAT 98
[2023-12-17] MEDS: EPOETIN ALFA-EPBX 20,000 UNITS/ML VIAL 20000 UNITS SUB-Q (09:27)
[2023-12-17 11:46] LABS: Iron 28 ug/dL (49-181)
[2023-12-17 12:02] LABS: Percent Iron Saturation 12 % (20-50)
[2023-12-17 12:56] LABS: Folic Acid 5.4 ng/mL (2.76->20); Vitamin B12 > 1000.0 pg/mL (239-931)
[2023-12-24 09:47] LABS: Basophils Percent Auto 0.1 % (0.2-1.2); Eosinophils Percent Auto 0.1 % (0-4.4); Hematocrit 30.2 % (42.0-52.0); Immature Granulocyte Absolute 0.18 K/mm3 (0.00-0.031); Immature Granulocyte Percent A 1.1 % (0-0.5); Lymphocytes Absolute Auto 8.97 K/mm3 (0.9-3.2); Lymphocytes Percent Auto 53.2 % (18.3-44.2); Mean Corpuscular HGB Conc 29.8 g/dl (32-36); Mean Corpuscular Hemoglobin 25.6 pg (26-34); Mean Platelet Volume 7.9 fl (7.4-10.4); Monocytes Absolute Auto 0.7 K/mm3 (0.1-0.6); Neutrophils Percent Auto 41.5 % (45.5-73.1); Platelet Count Result 162 k/mm3 (150-375); Red Blood Count 3.51 M/mm3 (4.6-6.20); Red Cell Distribution Width 17.9 % (11.5-14.5); White Blood Count 16.9 K/mm3 (4.5-10.0)
[2023-12-24 09:51] LABS: Blood Urea Nitrogen 49 mg/dL (8-26); Carbon Dioxide 19 mmol/L (22-30); Chloride 107 mmol/L (98-109); Estimated CRCL calculation 10 ml/min; Estimated Glomerular Filt Rate 9; Glucose 119 mg/dL (70-105); Ionized Calcium (POC) 1.14 mmol/L (1.11-1.31); Sodium 137 mmol/L (138-146)
[2023-12-24 09:51] LABS: Anisocytosis 1+; Microcytosis 1+ (NORMAL); Ovalocytes 1+; Platelet Estimate Adequate (Adequate); Poikilocytosis 1+; Schistocytes None Seen
[2023-12-24 10:49] VITALS: BP 133/77; PULSE 101; TEMP 37.1; O2SAT 100
[2023-12-24] MEDS: SODIUM CHLORIDE 0.9% IV 1,000 ML 500 ML IV CONT (11:07)
[2023-12-24 12:11] LABS: Alanine Aminotransferase 14 U/L (6-50); Albumin Level 3.5 g/dL (3.5-5.1); Alkaline Phosphatase 65 U/L (38-126); Anion Gap 15 mmol/L (4-12); Aspartate Amino Transferase 20 U/L (17-59); Bilirubin,Total 0.4 mg/dL (0.2-1.3); Blood Urea Nitrogen 52 mg/dL (9-20); Calcium 8.8 mg/dL (8.4-10.2); Carbon Dioxide 18 mmol/L (22-30); Chloride 104 mmol/L (98-107); Estimated CRCL calculation 11 ml/min; Estimated Glomerular Filt Rate 10; Glucose 123 mg/dL (65-110); Potassium 4.1 mmol/L (3.4-5.0); Sodium 137 mmol/L (137-145)
[2023-12-24] MEDS: ACETAMINOPHEN 325 MG TABLET 650 MG PO (13:28)
[2023-12-24] MEDS: diphenhydrAMINE HCl INJ 50 MG/ML VIAL 25 MG IV PUSH (13:30)
[2023-12-24 14:26] VITALS: BP 136/70
[2023-12-24] MEDS: HEPARIN SODIUM LOCK FLUSH 500 UNITS/5 ML SYRINGE IV PUSH (14:32)
== END 2023-12-27 09:16 ==
LOC: AMCINF 11:30
PROVIDERS: PCP Family Medicine Adolescent Medicine; Visit Provider Internal Medicine Hematology & Oncology
DX: C67.8 Malignant neoplasm of overlapping sites of bladder (principal); C91.10 Chronic lymphocytic leukemia of B-cell type not having achieved remission; R35.0 Frequency of micturition; D64.81 Anemia due to antineoplastic chemotherapy; D63.1 Anemia in chronic kidney disease; I12.9 Hypertensive chronic kidney disease with stage 1 through stage 4 chronic kidney disease, or unspecified chronic kidney disease; N18.31 Chronic kidney disease, stage 3a; N40.1 Benign prostatic hyperplasia with lower urinary tract symptoms; J32.9 Chronic sinusitis, unspecified; E78.00 Pure hypercholesterolemia, unspecified; E55.9 Vitamin D deficiency, unspecified; R56.9 Unspecified convulsions; F41.9 Anxiety disorder, unspecified; Z87.891 Personal history of nicotine dependence; Z79.899 Other long term (current) drug therapy; Z98.890 Other specified postprocedural states; Z92.21 Personal history of antineoplastic chemotherapy
CPT/HCPCS: 36415; 36591; 36592; 36593; 80047; 80053; 82607; 82728; 82746; 83540; 83550; 83735; 84443; 85025; 86480; 87077; 87086; 87088; 87186; 87340; 96360; 96361; 96365; 96367; 96368; 96372; 96375; 96413; 96417; 99212; A9270; G0463; J1100; J1200; J1453; J2405; J2469; J2997; J7030; J7050; J7060; J9023; J9045; J9177; J9201; J9271; Q0138; Q5106